=== PATIENT | male | born 1960 | race African-American/Black ===

== ENCOUNTER 2024-06-16 08:59 | Emergency (ER) | payer OTHER ==
--- OUTSIDE RECORDS SUMMARY | 2024-06-16 09:06 | XMS REPORT | Continuity of Care Document ---
Author Name Unknown Address [address] [facility] [address] [place] [address] [facility] Address [address] [facility] [address] [place] [address] Care Team Providers Care Plumbing Instructor Name Role Phone Barb Cooper MD Primary Care Physician [phone] Omayra Medina Attending Clinician Unavail able Barb Cooper Attending Clinician Unavailable Genny Taylor Attending Clinician Unavailable Marilyn Hughes Attending Clinician Unavailable Zabrina Aguilar Attending Clinician Unavailable VIBHA CHANDLER Attending Clinician Unavailable VIBHA CHANDLER Attending Clinician Unavailable Vibha Chandler MD Attending Clinician [phone] Karen Stewart DO Attending Clinician [phone] ERYN WATT Attending Clinician Unavailab Enrike Blount Attending Clinician [phone] Eryn Watt MD Attending Clinician [phone] Enrike BEAUCHAMP Attending Clinician Unavailable Enrike BEAUCHAMP Attending Clinician Unavailable MARCIA CAMACHO Attending Clinician Unavailable Marcia Camacho NP Attending Clinician [phone] WAQAS RIOS Attending Clinician Unavailable Gabriel ENGINEERING [employer]ACULT[employer] MEMBER, Waqas Attending Clinician + SAUL CHAMBERS Attending Clinician Unavailable Saul Chambers MD Attending Clinician + BRETT THORPE Attending Clinician Unavailable BRETT THORPE Attending Clinician Unavailable DAMIEN MCLAUGHLIN Attending Clinician Unavailable Damien Mclaughlin MD Attending Clinician + LILIA ROWLAND Attending Clinician Unavailab carolyn Rowland ENG[employer] MEMBER, Lilia Morris Attending Clinician [phone] VENU RIDER Attending Clinician Unavailable Venu Rider MD Attending Clinician + KAREN STEWART Attending Clinician Unavailab Karen Marquez DO Attending Clinician + DIOMEDES RUSSO Attending Clinician Unavailable Diomedes Malin Attending Clinician + Doctor Unassigned, Holliday Attending Clinician U navailDAMON Coffey Attending Clinician Unavailable Denis SCOTTPDamon Attending Clinician + JOY SANTOS Attending Clinician Unavailable Joy Aaron Attending Clinician [phone] Greg Chawla DO Attending Clinician + GREG CHAWLA Attending Clinician Unavailable Brendan Cochran Attending Clinician +1- BRENDAN MCQUEEN Attending Clinician Unavaila ble Newton SCOTTPSamantha Attending Clinician + Donna ENGINEERING [employer]ACULT[employer] MEMBER, Amarilys Attending Clinician + WAQAS RIOS Admitting Clinician Unavailable SAUL CHAMBERS Admitting Clinician Unavailable VENU RIDER Admitting Clinician Unavailable KAREN STWEART Admitting Clinician Unavailab DAMIEN Solis Admitting Clinician Unavailable VIBHA CHANDLER Admitting Clinician Unavailable DAMON VASQUEZ Admitting Clinician Unavailable BRENDAN MCQUEEN Admitting Clinician Unavaila ble Payers Payer Name Policy Type Policy Number Effective Date Expirati on Date Source [facility] [id number] 2024 00:00:00 [facility] [id number] 2017 00:00:[address] [facility] [id number] 2022 00:00:00 [facility] [id number] 2019 00:00:00 [place] [facility] [id number] 2011 00:00:00 [facility] MEDICAID [facility] [id number] 2011 00:00:00 [facility] MEDICAID [facility] [id number] 2011 00:00:00 [facility] MEDICAID [facility] [id number] 2011 00:00:00 [facility] Problems Condition Name Condition Details Condition Category Status Onset Date Resolution Date Last Treatment Date Treating Clinician Comments Source No known active problems No known active problems Disease [facility] Decreased hearing Decreased hearing Problem [facility] Tobacco user Smokes Problem [facility] [id number] CARMEN (generaliz ed anxiety disorder) Problem [facility] [id number] Other tobacco product nicotine dependence , uncomplica mariya Problem [facility] Foot callus Foot callus Problem [facility] Sexual dysfunctio n Sexual dysfunctio n, unspecifie d Problem [facility] Epidermal cyst Epidermal cyst Problem [facility] Onychomyco sis Onychomyco sis Problem [facility] FH: Diabetes mellitus Family history of diabetes mellitus Problem [facility] [id number] Neck pain Problem [facility] Plantar fasciitis Plantar fasciitis Problem [facility] [id number] Shortness of breath Problem [facility] Gastroesop hageal reflux disease GERD without esophagiti s Problem [facility] [id number] Pain in right leg Problem [facility] [id number] Chronic fatigue Problem [facility] Nicotine dependence Nicotine dependence Problem [facility] [id number] Tinea pedis of right foot Problem [facility] [id number] Lower abdominal pain Problem [facility] [id number] Cold intoleranc e Problem [facility] [id number] Allergic rhinitis due to animal dander Problem [facility] [id number] Snoring Problem [facility] [id number] Allergic rhinitis, unspecifie d seasonalit y, unspecifie d trigger Problem [facility] [id number] Vitamin D deficiency Problem [facility] [id number] Constipati on, unspecifie d constipati on type Problem [facility] [id number] Prediabete s Problem [facility] [id number] Inguinal hernia, right Problem [facility] [id number] Peripheral polyneurop athy Problem [facility] [id number] Pain of left leg Problem [facility] [id number] Hyperlipid emia, unspecifie d hyperlipid emia type Problem [facility] [id number] Motion sickness, initial encounter Problem [facility] [id number] Nonintract able headache, unspecifie d chronicity pattern, unspecifie d headache type Problem [facility] [id number] Depression screening Problem [facility] [id number] Left testicular pain Problem [facility] Peripheral neuropathy Peripheral neuropathy Problem [facility] [id number] Acute lower urinary tract infection Problem [facility] [id number] Muscle cramps Problem [facility] [id number] Polyneurop athy associated with underlying disease Problem [facility] History of tobacco use History of cigar smoking Problem [facility] Pain co-occurre nt and due to varicose veins of bilateral legs Varicose veins of bilateral lower extremitie s with pain Problem [facility] [id number] Other chronic pain Problem [facility] [id number] Neuropathy Problem Com [facility] Allergies, Adverse Reactions, Alerts Allergy Name Allergy Type Status Severity Reaction(s) Onset Date Inactive Date Treating Clinician Comments Source Milk Propensi ty to adverse reaction s Active Swelling 08-07 00:00: 00 [facility] MILK DRUG INGREDI Active Swelling 08-07 00:00: 00 [facility] Iodine And Iodide Containi ng Products Propensi ty to adverse reaction s Active Anaphylaxis 08-08 00:00: 00 [facility] Pepper (Genus Capsicum ) Propensi ty to adverse reaction s Active Itching 08-08 00:00: 00 [facility] Seafood/ Fish Propensi ty to adverse reaction s Active Swelling 08-08 00:00: 00 [facility] Iodine And Iodide Containi ng Products Propensi ty to adverse reaction s Active Anaphylaxis 08-08 00:00: 00 [facility] PEPPER (GENUS CAPSICUM ) DRUG INGREDI Active ITCHING 08-08 00:00: 00 [facility] SEAFOOD/ FISH Food Active Swelling 08-08 00:00: 00 [facility] IODINE AND IODIDE CONTAINI NG PRODUCTS Drug Class Active High Anaphylaxis 08-08 00:00: 00 [facility] sulfamet hoxazole / trimetho prim sulfamet hoxazole / trimetho prim Active itching [facility] Social History Social Habit Start Date Stop Date Quantity Comments [facility] of [facility] Use Current Smoker [facility] Sex Assigned At [facility] Exposure to SARS-CoV-2 (event) 2022-07-14 00:00:00 2022-07-24 22:16:00 Not sure [facility] Smoking Status Start Date Stop Date Source Current Smoker 2024-06-08 00:00:00 [facility] Never Smoker [facility] Tobacco smoking consumption unknown [facility] Medications Ordered Medication Name Filled Medication Name Start Date Stop Date Current Medication? Ordering Clinician Indication Dosage Frequency Signature (SIG) Comments Components Source doxycycline hyclate (Vibramycin ) capsule 100 mg 2023-07 06:30: 00 06-14 06:50 :00 No 100mg 100 mg, Oral, ONCE, 1 dose, On 06/14/24 at 0030, NOÉ, Reason for Anti-Infec tive: Documented Infection, Documented Infection Site: Urine, Duration of Therapy: Once (ED) [facility] cefTRIAXone (ROCEPHIN) injection 500 mg 2023-07 06:30: 00 06-14 06:50 :00 No 500mg 500 mg, Intramuscu lar, ONCE, 1 dose, On 06/14/24 at 0030, STAT, Reason for Anti-Infec tive: Documented Infection, Documented Infection Site: Urine, Duration of Therapy: Once (ED) [facility] doxycycline hyclate 100 mg capsule 2023-07 00:00: 00 Yes [id number] 100mg Take 1 capsule by mouth in the morning and 1 capsule in the evening. [facility] phenazopyri dine 200 mg tablet 2023-07 00:00: 00 Yes [id number] 200mg Take 1 tablet by mouth in the morning and 1 tablet at noon and 1 tablet in the evening. [facility] Vitamin D-3 5000 UNIT Vitamin D-3 5000 UNIT 2023-07 00:00: 00 No 1{table t} QD Vitamin D-3 5000 UNIT Escitalopra m Oxalate 10 MG Escitalopra m Oxalate 10 MG 2023-07 00:00: 00 No 1{table t} QD Escitalopr am Oxalate 10 MG guaiFENesin ER 600 MG guaiFENesin ER 600 MG 2023-07 00:00: 00 No 1{table t_as_ne eded} BID guaiFENesi n ER 600 MG ketorolac (TORADOL) injection 30 mg 2023-07 15:45: 00 06-02 15:08 :00 No 30mg 30 mg, Slow IV Push, ONCE, 1 dose, On Tu06/02/24 at 0945, Routine [facility] benzonatate 200 mg capsule 03-23 00:00: 00 Yes [id number] 200mg Take 1 capsule by mouth 3 (three) times daily as needed for Cough for up to 20 doses. [facility] ondansetron 4 mg disintegrat ing tablet 03-23 00:00: 00 Yes [id number] 4mg Take 1 tablet by mouth every 8 (eight) hours as needed for Nausea and Vomiting (N/V). [facility] baclofen 5 mg tablet 12-03 00:00: 00 12-18 04:59 :00 No [id number] 5mg Take 1 tablet by mouth at bedtime for 14 days. [facility] ondansetron 4 mg disintegrat ing tablet 09-14 00:00: 00 12-03 00:00 :00 No [id number] 4mg Take 1 tablet by mouth every 8 (eight) hours as needed for Nausea and Vomiting (N/V). [facility] dicyclomine 20 mg tablet 09-14 00:00: 00 12-03 00:00 :00 No [id number] 20mg Take 1 tablet by mouth 3 (three) times daily as needed for Abdominal pain. [facility] famotidine (PEPCID) 40 mg tablet 09-14 00:00: 00 09-29 04:59 :00 No [id number] 40mg Take 1 tablet by mouth in the morning for 15 days. [facility] dexAMETHaso ne (DECADRON) tablet 6 mg 08-22 07:15: 00 08-22 06:06 :00 No 6mg 6 mg, Oral, ONCE, 1 dose, On [place] 08/22/23 at 0115, Routine [facility] benzonatate (TESSALON PERLES) capsule 200 mg 08-22 07:00: 00 08-22 06:06 :00 No 200mg 200 mg, Oral, ONCE NOW, 1 dose, On [place] 08/22/23 at 0100, NOÉ [facility] benzonatate 200 mg capsule 08-22 00:00: 00 12-03 00:00 :00 No [id number] 200mg Take 1 capsule by mouth 3 (three) times daily as needed for Cough. [facility] loratadine 10 mg tablet 08-22 00:00: 00 12-03 00:00 :00 No [id number] 10mg Take 1 tablet by mouth in the morning. [facility] cefdinir 300 mg capsule 08-22 00:00: 00 09-02 05:59 :00 No [id number] 300mg Take 1 capsule by mouth in the morning and 1 capsule in the evening. Do all this for 10 days. [facility] dexAMETHaso ne 4 mg tablet 08-22 00:00: 00 08-28 05:59 :00 No [id number] 4mg Take 1 tablet by mouth in the morning and 1 tablet in the evening. Do all this for 5 days. [facility] ibuprofen (IBU) tablet 600 mg 2022-07 00:45: 00 06-24 00:48 :00 No 600mg 600 mg, Oral, ONCE, 1 dose, On 06/23/23 at 1845, NOÉ [facility] methylPREDN ISolone 4 mg tablets 04-13 00:00: 00 Yes [id number] Take by mouth SEE-INSTRU CTIONS. follow package directions [facility] azithromyci n (ZITHROMAX Z-BEAR) 250 mg tablet 04-13 00:00: 00 12-03 00:00 :00 No [id number] 250mg Take 1 tablet by mouth SEE-INSTRU CTIONS. Take 500 mg day 1, then 250 mg days 2 to 5. [facility] loratadine 10 mg tablet 04-13 00:00: 00 12-03 00:00 :00 No [id number] 10mg Take 1 tablet by mouth at bedtime as needed for Allergies. [facility] benzonatate 100 mg capsule 04-13 00:00: 00 12-03 00:00 :00 No [id number] 100mg Take 1 capsule by mouth 3 (three) times daily as needed for Cough. [facility] amoxicillin 500 mg capsule 6-25 00:00: 00 01-24 04:59 :00 No [id number] 500mg Take 1 capsule by mouth in the morning and 1 capsule in the evening. Do all this for 10 days. [facility] predniSONE (DELTASONE) tablet 30 mg 07-25 06:12: 07-25 06:21 :00 No 30mg 30 mg, Oral, ONCE, 1 dose, On Sat07/25/22 at 0015, NOÉ [facility] doxycycline hyclate (Vibramycin ) capsule 100 mg 07-25 06:12: 00 07-25 06:21 :00 No 100mg 100 mg, Oral, ONCE, 1 dose, On Sat07/25/22 at 0015, NOÉ
Re ason for Anti-Infec tive: Documented Infection< br>Documen mariya Infection Site: Respirator y
Durat ion of Therapy: Other (see Comments) [facility] doxycycline hyclate 100 mg capsule 07-25 00:00: 00 12-03 00:00 :00 No [id number] 100mg Take 1 capsule by mouth in the morning and 1 capsule in the evening. [facility] albuterol 90 mcg/actuati on inhaler 07-25 00:00: 00 12-03 00:00 :00 No [id number] 2{puff} Inhale 2 Puffs every 4 (four) hours as needed for Wheezing, Shortness of Breath or Chest tightness. [facility] benzonatate 100 mg capsule 07-25 00:00: 00 04-13 00:00 :00 No [id number] 100mg Take 1 capsule by mouth 3 (three) times daily as needed for Cough. [facility] predniSONE 10 mg tablet 07-25 00:00: 00 07-29 05:59 :00 No [id number] 30mg Take 3 tablets by mouth in the morning for 3 days. [facility] acetaminoph en (TYLENOL) tablet 650 mg 03-05 22:45: 00 03-05 22:43 :00 No 650mg 650 mg, Oral, ONCE, 1 dose, On Sat03/05/22 at 1745, NOÉ [facility] ibuprofen (IBU) tablet 600 mg 01-16 18:45: 00 01-16 18:48 :00 No 600mg 600 mg, Oral, ONCE, 1 dose, On Sat01/16/22 at 1345, NOÉ [facility] montelukast 10 mg tablet 01-11 00:00: 00 12-03 00:00 :00 No [id number] 10mg Take 1 tablet by mouth every 24 (twenty-fo ur) hours as needed (symptoms) . [facility] methylPREDN ISolone 4 mg tablets 01-11 00:00: 00 04-13 00:00 :00 No [id number] Take by mouth SEE-INSTRU CTIONS. follow package directions [facility] benzonatate 100 mg capsule 01-11 00:00: 00 04-13 00:00 :00 No [id number] 100mg Take 1 capsule by mouth 3 (three) times daily as needed for Cough. [facility] doxycycline hyclate 100 mg capsule 01-11 00:00: 00 01-22 04:59 :00 No [id number] 100mg Take 1 capsule by mouth 2 (two) times daily for 10 days. [facility] ondansetron (ZOFRAN (PF)) injection 4 mg 11-03 03:00: 00 11-03 02:03 :00 No 4mg 4 mg, Slow IV Push, ONCE, 1 dose, On Sat11/02/21 at 2200, NOÉ [facility] ketorolac (TORADOL) injection 15 mg 11-03 03:00: 00 11-03 02:04 :00 No 15mg 15 mg, Slow IV Push, ONCE, 1 dose, On 11/02/22 at 2200, NOÉ [facility] lactulose 10 gram/15 mL oral solution 11-02 00:00: 00 12-03 00:00 :00 No [id number] 30mL Take 30 mL by mouth 3 (three) times daily as needed for Constipati on or For bowel movement. [facility] cefTRIAXone (ROCEPHIN) injection 500 mg 10-23 16:45: 00 10-23 16:16 :00 No 500mg 500 mg, Intramuscu lar, ONCE, 1 dose, On 10/23/21 at 1145, NOÉ
Re ason for Anti-Infec tive: Documented Infection< br>Documen mariya Infection Site: Pelvic
Duration of Therapy: Other (see Comments) [facility] doxycycline hyclate 100 mg capsule 10-23 00:00: 00 10-31 04:59 :00 No [id number] 100mg Take 1 capsule by mouth 2 (two) times daily for 7 days. [facility] cefpodoxime 100 mg tablet 10-16 00:00: 00 10-24 04:59 :00 No [id number] 100mg Take 1 tablet by mouth 2 (two) times daily for 7 days. [facility] predniSONE (DELTASONE) tablet 40 mg 10-10 04:00: 00 10-10 02:51 :00 No 40mg 40 mg, Oral, ONCE, 1 dose, On Sat10/09/21 at 2300, NOÉ [facility] dextrometho rphan-guaif enesin 10-100 mg/5 mL solution 10-09 00:00: 00 12-03 00:00 :00 No [id number] 10mL Take 10 mL by mouth every 6 (six) hours as needed for Cough. [facility] fluticasone propionate 50 mcg/actuati on nasal spray 10-09 00:00: 00 12-03 00:00 :00 No [id number] 2{spray } Use 2 Sprays in each nostril daily. [facility] albuterol 90 mcg/actuati on inhaler 10-09 00:00: 00 12-03 00:00 :00 No [id number] 2{puff} Inhale 2 Puffs every 4 (four) hours as needed for Wheezing or Shortness of Breath. [facility] predniSONE 20 mg tablet 10-09 00:00: 00 12-03 00:00 :00 No [id number] 60mg Take 3 tablets by mouth every morning. [facility] benzonatate 100 mg capsule 10-09 00:00: 00 04-13 00:00 :00 No [id number] 100mg Take 1 capsule by mouth 3 (three) times daily as needed for Cough. [facility] predniSONE (DELTASONE) tablet 40 mg 2020-07 05:45: 00 07-07 04:42 :00 No 40mg 40 mg, Oral, ONCE, 1 dose, On [facility] 07/06/21 at 2345, NOÉ [facility] predniSONE 20 mg tablet 2020-0716 00:00: 00 07-11 05:59 :00 No [id number] 20mg Take 1 tablet by mouth 2 (two) times daily for 4 days. [facility] maalox:diph enhydrAMINE :lidocaine 2 % viscous 1:1:1 (FIRST-MOUT HWASH BLM) oral suspension 15 mL 2020-07 02:45: 00 06-13 01:42 :00 No 15mL 15 mL, Oral, ONCE, 1 dose, On Sat06/12/21 at 2045, NOÉ [facility] dicyclomine (BENTYL) tablet 20 mg 2020-07 02:45: 00 06-13 01:45 :00 No 20mg 20 mg, Oral, ONCE, 1 dose, On Sat06/12/21 at 2045, NOÉ [facility] NaCl 0.9% (NS) bolus infusion 1,000 mL 2020-07 02:30: 00 06-13 03:00 :00 No 1000mL at 999 mL/hr, 1,000 mL, IV Infusion, ONCE, 1 dose, On 06/12/21 at 2030, NOÉ [facility] sucralfate 1 gram tablet 2020-07 00:00: 00 12-03 00:00 :00 No [id number] 1g Take 1 tablet by mouth before meals and at bedtime. [facility] dicyclomine 20 mg tablet 2020-07 00:00: 00 12-03 00:00 :00 No [id number] 20mg Take 1 tablet by mouth 4 (four) times daily. [facility] ondansetron 4 mg disintegrat ing tablet 2020-07 00:00: 00 12-03 00:00 :00 No [id number] 4mg Take 1 tablet by mouth every 4 (four) hours as needed for Nausea and Vomiting (N/V). [facility] montelukast (SINGULAIR) 10 mg tablet 03-09 14:25: 35 03-09 00:00 :00 No 10mg Take 10 mg by mouth. [facility] benzonatate 200 mg capsule 03-09 00:00: 00 04-13 00:00 :00 No [id number] 200mg Take 1 capsule by mouth 3 (three) times daily as needed for Cough. [facility] methylPREDN ISolone (MEDROL, BEAR,) 4 mg tablets 03-09 00:00: 00 04-13 00:00 :00 No [id number] Take by mouth SEE-INSTRU CTIONS. follow package directions [facility] dexamethaso ne (DECADRON PHOSPHATE) injection 10 mg 12-09 16:45: 00 12-09 16:18 :00 No 10mg 10 mg, Oral, ONCE, 1 dose, Sat12/09/20 at 1145, Routine [facility] benzonatate (TESSALON PERLES) capsule 100 mg 12-09 16:45: 00 12-09 16:13 :00 No 100mg 100 mg, Oral, ONCE, 1 dose, 12/09/20 at 1145, Routine [facility] albuterol (VENTOLIN) inhaler 2 Puff 12-09 16:45: 00 12-09 15:54 :00 No 2{puff} 2 Puff, Inhalation , ONCE, 1 dose, 12/09/20 at 1145, NOÉ
Is this order for a patient with suspected or confirmed COVID-19 infection? Yes [facility] albuterol 90 mcg/actuati on inhaler 12-09 00:00: 00 03-09 00:00 :00 No [id number] 2{puff} Inhale 2 Puffs every 4 (four) hours as needed for Wheezing or Shortness of Breath. [facility] benzonatate 100 mg capsule 12-09 00:00: 00 03-09 00:00 :00 No [id number] 100mg Take 1 capsule by mouth 3 (three) times daily as needed for Cough. [facility] ketorolac (TORADOL) injection 30 mg 2019-07 17:00: 00 07-16 16:06 :00 No 30mg 30 mg, Slow IV Push, ONCE, 1 dose, 07/16/20 at 1100, Routine
outreach team member approving Restricted medication : DAMIEN MCLAUGHLIN [facility] ibuprofen 800 mg tablet 2019-07 00:00: 00 03-09 00:00 :00 No [id number] 800mg Take 1 tablet by mouth every 8 (eight) hours as needed for Pain (scale 4-6). [facility] methylPREDN ISolone 4 mg tablets 2019-07 00:00: 00 03-09 00:00 :00 No [id number] Take by mouth SEE-INSTRU CTIONS. follow package directions [facility] albuterol 90 mcg/actuati on inhaler 2019-07 00:00: 00 03-09 00:00 :00 No [id number] 2{puff} Inhale 2 Puffs every 4 (four) hours as needed for Wheezing or Shortness of Breath. [facility] benzonatate 100 mg capsule 2019-07 2 00:00: 03-09 00:00 :00 No [id number] 100mg Take 1 capsule by mouth 3 (three) times daily as needed for Cough. [facility] ondansetron 4 mg disintegrat ing tablet 2019-07 00:00: 00 03-09 00:00 :00 No [id number] 4mg Take 1 tablet by mouth every 4 (four) hours as needed for Nausea and Vomiting (N/V). [facility] montelukast (SINGULAIR) 10 mg tablet 2019-07 00:00: 00 03-09 00:00 :00 No [id number] 10mg Take 1 tablet by mouth daily. [facility] loratadine 10 mg tablet 01-27 00:00: 00 03-09 00:00 :00 No [id number] 10mg Take 1 tablet by mouth daily. [facility] montelukast 10 mg tablet 01-27 00:00: 00 03-09 00:00 :00 No [id number] 10mg Take 1 tablet by mouth daily. [facility] benzonatate 100 mg capsule 01-27 00:00: 00 03-09 00:00 :00 No [id number] 100mg Take 1 capsule by mouth 3 (three) times daily as needed for Cough. [facility] methylPREDN ISolone (MEDROL, BEAR,) 4 mg tablets 01-27 00:00: 00 07-11 00:00 :00 No [id number] Take by mouth SEE-INSTRU CTIONS. follow package directions [facility] ibuprofen 800 mg tablet 08-21 00:00: 00 03-09 00:00 :00 No [id number] 800mg Take 1 tablet by mouth every 8 (eight) hours as needed for Temp > 38.5 C (PAIN). [facility] benzonatate 200 mg capsule 08-21 00:00: 00 03-09 00:00 :00 No [id number] 200mg Take 1 capsule by mouth 3 (three) times daily as needed for Cough. [facility] benzonatate 100 mg capsule 2018-07 00:00: 00 03-09 00:00 :00 No [id number] 100mg Take 1 capsule by mouth 3 (three) times daily as needed for Cough. [facility] levoFLOXaci n (LEVAQUIN) tablet 500 mg 02-17 03:15: 02-17 02:10 :00 No 500mg 500 mg, Oral, ONCE, 1 dose, Sat02/16/19 at 2215, NOÉ
Re ason for Anti-Infec tive: Documented Infection< br>Documen mariya Infection Site: Pelvic
Duration of Therapy: 10 days [facility] naproxen (NAPROSYN) tablet 500 mg 02-17 03:15: 02-17 02:10 :00 No 500mg 500 mg, Oral, ONCE, 1 dose, Sat02/16/19 at 2215, Routine [facility] naproxen (NAPROSYN) 500 mg tablet 02-16 00:00: 00 12-03 00:00 :00 No [id number] 500mg Take 1 tablet by mouth 2 (two) times daily with meals. [facility] levoFLOXaci n (LEVAQUIN) 500 mg tablet 02-16 00:00: 00 02-27 04:59 :00 No [id number] 500mg Take 1 tablet by mouth every 24 (twenty-fo ur) hours for 10 days. [facility] benzonatate 200 mg capsule 02-11 00:00: 00 Yes [id number] 200mg Take 1 capsule by mouth 3 (three) times daily as needed for Cough. [facility] traMADol (ULTRAM) 50 mg tablet 02-11 00:00: 00 12-03 00:00 :00 No [id number] 50mg Take 1 tablet by mouth every 6 (six) hours as needed for Pain (scale 7-10). [facility] sod chlor-bicar b-squeez bottle (NEILMED SINUS RINSE COMPLETE) [facility] 2017-07 00:00: 00 Yes 1{bottl e} Use 1 Bottle in each nostril 2 (two) times daily. Use in hot shower 1 hour before bedtime [facility] promethazin e-codeine 6.25-10 mg/5 mL syrup 2017-07 00:00: 00 12-03 00:00 :00 No 5mL Take 5 mL by mouth 4 (four) times daily as needed for Cough. [facility] sod chlor-bicar b-squeez bottle (NEILMED SINUS RINSE COMPLETE) [facility] 2017-07 00:00: 00 12-03 00:00 :00 No 1{bottl e} Use 1 Bottle in each nostril 2 (two) times daily. Use in hot shower 1 hour before bedtime [facility] ETODOLAC ORAL 01-16 02:31: 37 Yes 500mg Take 500 mg by mouth 2 (two) times daily. [facility] montelukast (SINGULAIR) 10 mg tablet 01-16 02:31: 37 Yes 10mg Take 10 mg by mouth. [facility] ETODOLAC ORAL 01-15 21:31: 37 12-03 00:00 :00 No 500mg Take 500 mg by mouth 2 (two) times daily. [facility] fluticasone (FLONASE ALLERGY RELIEF) 50 mcg/actuati on nasal spray 01-15 00:00: 00 12-03 00:00 :00 No 1{spray } Use 1 [place] in each nostril daily. [facility] loratadine 10 mg tablet 01-15 00:00: 00 03-09 00:00 :00 No 10mg Take 1 tablet by mouth daily. [facility] Omeprazole 20 mg Omeprazole 20 mg 20 00:00: 00 No 1{capsu le} QD Omeprazole 20 mg ondansetron (ZOFRAN ODT) 4 mg disintegrat ing tablet 2016-07 2-20 00:00: 00 03-09 00:00 :00 No 4mg Take 1 tablet by mouth every 8 (eight) hours as needed for Nausea and Vomiting (N/V). [facility] ibuprofen 600 mg tablet 2016-07 2-20 00:00: 00 03-09 00:00 :00 No 600mg Take 1 tablet by mouth every 6 (six) hours as needed for Pain (scale 4-6). [facility] miconazole 2 % cream -14 00:00: 00 Yes Apply to area(s) 2 (two) times daily. [facility] nystatin-tr iamcinolone (MYCOLOG) ointment -18 00:00: 00 12-03 00:00 :00 No Apply to area(s) 2 (two) times daily. [facility] Vitamin B Complex - Vitamin B Complex - No Vitamin B Complex - Immunizations Ordered Immunization Name Filled Immunization Name Date Status Comments Source Afluria (IIV4) - 3 years and older - SDS - 0.5mL Afluria (IIV4) - 3 years and older - SDS - 0.5mL 2020-08-09 15:55:00 Completed [facility] Afluria single dose Afluria single dose 15:55:00 Completed [facility] Afluria single dose Afluria single dose 15:55:00 Completed [facility] Afluria single dose Afluria single dose 15:55:00 Completed [facility] Afluria single dose Afluria single dose 15:55:00 Completed [facility] Afluria single dose Afluria single dose 15:55:00 Completed [facility] Afluria single dose Afluria single dose 15:55:00 Completed [facility] Afluria (IIV4) - 3 years and older - SDS - 0.5mL Afluria (IIV4) - 3 years and older - SDS - 0.5mL Unknown Completed [facility] Vital Signs Vital Name Observation Time Observation Value Comments S isaiah Systolic blood pressure 2024-06-14 06:55:00 128 mm[Hg] [facility] Diastolic blood pressure 2024-06-14 06:55:00 80 mm[Hg] [facility] Heart rate 2024-06-14 06:55:00 66 /min [facility] Body temperature 2024-06-14 06:55:00 36.89 Madeleine [facility] Respiratory rate 2024-06-14 06:55:00 17 /min [facility] Oxygen saturation in Arterial blood by Pulse oximetry 2024-06-14 06:55:00 100 /min [facility] Body height 2024-06-14 04:12:00 180.3 cm [facility] Body weight 2024-06-14 04:12:00 74.481 kg [facility] BMI 2024-06-14 04:12:00 22.90 kg/m2 [facility] height 2024-06-08 15:15:00 72 [in_i] Commo n [facility] weight 2024-06-08 15:15:00 166.2 [lb_av] Co mmon [facility] temperature 2024-06-08 15:15:00 97.4 [degF] Com mon [facility] bmi 2024-06-08 15:15:00 22.54 kg/m2 Comm on [facility] oximetry 2024-06-08 15:15:00 98 % Commo n [facility] respiratory rate 2024-06-08 15:15:00 16 /min [facility] blood pressure systolic 2024-06-08 15:15:00 116 mm[Hg] [facility] blood pressure diastolic 2024-06-08 15:15:00 58 mm[Hg] [facility] Systolic blood pressure 2024-06-02 15:13:00 146 mm[Hg] [facility] Diastolic blood pressure 2024-06-02 15:13:00 87 mm[Hg] [facility] Heart rate 2024-06-02 15:13:00 54 /min [facility] Respiratory rate 2024-06-02 15:13:00 15 /min [facility] Oxygen saturation in Arterial blood by Pulse oximetry 2024-06-02 15:13:00 100 /min [facility] Body temperature 2024-06-02 12:48:00 36.5 Madeleine [facility] Body height 2024-06-02 12:48:00 182.9 cm [facility] Body weight 2024-06-02 12:48:00 86.183 kg [facility] BMI 2024-06-02 12:48:00 25.77 kg/m2 [facility] Systolic blood pressure 2024-04-08 00:27:00 138 mm[Hg] [facility] Diastolic blood pressure 2024-04-08 00:27:00 76 mm[Hg] [facility] Heart rate 2024-04-08 00:27:00 73 /min [facility] Body temperature 2024-04-08 00:27:00 36.5 Madeleine [facility] Respiratory rate 2024-04-08 00:27:00 18 /min [facility] Body height 2024-04-08 00:27:00 182.9 cm [facility] Body weight 2024-04-08 00:27:00 86.183 kg [facility] BMI 2024-04-08 00:27:00 25.77 kg/m2 [facility] Oxygen saturation in Arterial blood by Pulse oximetry 2024-04-08 00:27:00 100 /min [facility] Systolic blood pressure 2024-03-23 16:40:00 150 mm[Hg] [facility] Diastolic blood pressure 2024-03-23 16:40:00 79 mm[Hg] [facility] Heart rate 2024-03-23 16:40:00 68 /min [facility] Body temperature 2024-03-23 16:40:00 36.5 Madeleine [facility] Respiratory rate 2024-03-23 16:40:00 18 /min [facility] Body height 2024-03-23 16:40:00 180.3 cm [facility] Body weight 2024-03-23 16:40:00 77.111 kg [facility] BMI 2024-03-23 16:40:00 23.71 kg/m2 [facility] Oxygen saturation in Arterial blood by Pulse oximetry 2024-03-23 16:40:00 98 /min [facility] Systolic blood pressure 2023-12-05 03:20:00 144 mm[Hg] [facility] Diastolic blood pressure 2023-12-05 03:20:00 81 mm[Hg] [facility] Heart rate 2023-12-05 03:20:00 61 /min [facility] Body temperature 2023-12-05 03:20:00 36.56 [facility] Respiratory rate 2023-12-05 03:20:00 15 /min [facility] Oxygen saturation in Arterial blood by Pulse oximetry 2023-12-05 03:20:00 99 /min [facility] Body height 2023-12-05 00:04:00 200.7 cm [facility] Body weight 2023-12-05 00:04:00 76.204 kg [facility] BMI 2023-12-05 00:04:00 18.93 kg/m2 [facility] Systolic blood pressure 2023-09-15 01:36:00 140 mm[Hg] [facility] Diastolic blood pressure 2023-09-15 01:36:00 72 mm[Hg] [facility] Heart rate 2023-09-15 01:36:00 55 [facility] Body temperature 2023-09-15 01:36:00 36.56 Madeleine [facility] Respiratory rate 2023-09-15 01:36:00 16 /min [facility] Oxygen saturation in Arterial blood by Pulse oximetry 2023-09-15 01:36:00 100 /min [facility] Body height 2023-09-14 22:05:00 180.3 cm [facility] Body weight 2023-09-14 22:05:00 79.379 kg [facility] BMI 2023-09-14 22:05:00 24.41 kg/m2 [facility] Systolic blood pressure 2023-08-22 06:11:00 116 mm[Hg] [facility] Diastolic blood pressure 2023-08-22 06:11:00 82 mm[Hg] [facility] Heart rate 2023-08-22 06:11:00 57 /min [facility] Body temperature 2023-08-22 06:11:00 36.56 Madeleine [facility] Respiratory rate 2023-08-22 06:11:00 14 /min [facility] Oxygen saturation in Arterial blood by Pulse oximetry 2023-08-22 06:11:00 100 /min [facility] Body height 2023-08-22 04:07:00 180.3 cm [facility] Body weight 2023-08-22 04:07:00 81.647 kg [facility] BMI 2023-08-22 04:07:00 25.10 kg/m2 [facility] height 2023-07-03 14:20:00 72 [in_i] Commo n [facility] weight 2023-07-03 14:20:00 170.4 [lb_av] Co mmon [facility] temperature 2023-07-03 14:20:00 97.9 [degF] Com mon [facility] bmi 2023-07-03 14:20:00 23.11 kg/m2 Comm on [facility] oximetry 2023-07-03 14:20:00 100 % Commo n [facility] respiratory rate 2023-07-03 14:20:00 16 /min Common [facility] blood pressure systolic 2023-07-03 14:20:00 126 mm[Hg] Common [facility] blood pressure diastolic 2023-07-03 14:20:00 71 mm[Hg] Common [facility] Systolic blood pressure 2023-06-24 00:24:00 128 mm[Hg] [facility] Diastolic blood pressure 2023-06-24 00:24:00 72 mm[Hg] [facility] Heart rate 2023-06-24 00:24:00 62 /min [facility] Body temperature 2023-06-24 00:24:00 36.61 Madeleine [facility] Respiratory rate 2023-06-24 00:24:00 20 /min [facility] Body height 2023-06-24 00:24:00 172.7 cm [facility] Body weight 2023-06-24 00:24:00 81.647 kg [facility] BMI 2023-06-24 00:24:00 27.37 kg/m2 [facility] Oxygen saturation in Arterial blood by Pulse oximetry 2023-06-24 00:24:00 100 /min [facility] Systolic blood pressure 2023-04-13 16:13:00 130 mm[Hg] [facility] Diastolic blood pressure 2023-04-13 16:13:00 71 mm[Hg] [facility] Heart rate 2023-04-13 16:13:00 61 /min [facility] Body temperature 2023-04-13 16:13:00 36.72 Madeleine [facility] Respiratory rate 2023-04-13 16:13:00 18 /min [facility] Body height 2023-04-13 16:13:00 182.9 cm [facility] Body weight 2023-04-13 16:13:00 80.74 kg [facility] BMI 2023-04-13 16:13:00 24.14 kg/m2 [facility] Oxygen saturation in Arterial blood by Pulse oximetry 2023-04-13 16:13:00 99 /min [facility] Systolic blood pressure 2023-01-13 18:38:00 156 mm[Hg] [facility] Diastolic blood pressure 2023-01-13 18:38:00 72 mm[Hg] [facility] Heart rate 2023-01-13 18:38:00 66 /min [facility] Body temperature 2023-01-13 18:38:00 36.72 Madeleine [facility] Respiratory rate 2023-01-13 18:38:00 22 /min [facility] Body height 2023-01-13 18:38:00 182.9 cm [facility] Body weight 2023-01-13 18:38:00 80.74 kg [facility] BMI 2023-01-13 18:38:00 24.14 kg/m2 [facility] Oxygen saturation in Arterial blood by Pulse oximetry 2023-01-13 18:38:00 100 /min [facility] Systolic blood pressure 2022-07-25 04:18:00 157 mm[Hg] [facility] Diastolic blood pressure 2022-07-25 04:18:00 71 mm[Hg] [facility] Heart rate 2022-07-25 04:18:00 73 /min [facility] Body temperature 2022-07-25 04:18:00 36.5 Madeleine [facility] Respiratory rate 2022-07-25 04:18:00 18 /min [facility] Body height 2022-07-25 04:18:00 180.3 cm [facility] Body weight 2022-07-25 04:18:00 67.132 kg [facility] BMI 2022-07-25 04:18:00 20.64 kg/m2 [facility] Oxygen saturation in Arterial blood by Pulse oximetry 2022-07-25 04:18:00 100 /min [facility] height 2022-05-18 16:00:00 72 [in_i] Commo n [facility] weight 2022-05-18 16:00:00 173.8 [lb_av] Co mmon [facility] temperature 2022-05-18 16:00:00 97.9 [degF] Com mon [facility] bmi 2022-05-18 16:00:00 23.57 kg/m2 Comm on [facility] oximetry 2022-05-18 16:00:00 98 % Commo n [facility] respiratory rate 2022-05-18 16:00:00 15 /min Common [facility] blood pressure systolic 2022-05-18 16:00:00 126 mm[Hg] [facility] blood pressure diastolic 2022-05-18 16:00:00 59 mm[Hg] [facility] Systolic blood pressure 2022-03-05 21:34:00 119 mm[Hg] [facility] Diastolic blood pressure 2022-03-05 21:34:00 70 mm[Hg] [facility] Heart rate 2022-03-05 21:34:00 94 /min [facility] Body temperature 2022-03-05 21:34:00 37.89 Madeleine [facility] Respiratory rate 2022-03-05 21:34:00 18 /min [facility] Body weight 2022-03-05 21:34:00 68.04 kg [facility] BMI 2022-03-05 21:34:00 17.33 kg/m2 [facility] Oxygen saturation in Arterial blood by Pulse oximetry 2022-03-05 21:34:00 98 /min [facility] height 2022-02-13 16:40:00 72 [in_i] Commo n [facility] weight 2022-02-13 16:40:00 162 [lb_av] Comm on [facility] temperature 2022-02-13 16:40:00 97.2 [degF] Com mon [facility] bmi 2022-02-13 16:40:00 21.97 kg/m2 Comm on [facility] oximetry 2022-02-13 16:40:00 100 % Commo n [facility] respiratory rate 2022-02-13 16:40:00 19 /min [facility] blood pressure systolic 2022-02-13 16:40:00 116 mm[Hg] [facility] blood pressure diastolic 2022-02-13 16:40:00 67 mm[Hg] [facility] Systolic blood pressure 2022-01-23 00:56:00 140 mm[Hg] [facility] Diastolic blood pressure 2022-01-23 00:56:00 70 mm[Hg] [facility] Heart rate 2022-01-23 00:56:00 69 /min [facility] Body temperature 2022-01-23 00:56:00 36.89 Madeleine [facility] Respiratory rate 2022-01-23 00:56:00 16 /min [facility] Oxygen saturation in Arterial blood by Pulse oximetry 2022-01-23 00:56:00 98 /min [facility] Systolic blood pressure 2022-01-16 18:36:00 125 mm[Hg] [facility] Diastolic blood pressure 2022-01-16 18:36:00 59 mm[Hg] [facility] Heart rate 2022-01-16 18:36:00 85 /min [facility] Body temperature 2022-01-16 18:36:00 36.44 Madeleine [facility] Respiratory rate 2022-01-16 18:36:00 20 /min [facility] Body height 2022-01-16 18:36:00 198.1 cm [facility] Body weight 2022-01-16 18:36:00 68.04 kg [facility] BMI 2022-01-16 18:36:00 17.33 kg/m2 [facility] Oxygen saturation in Arterial blood by Pulse oximetry 2022-01-16 18:36:00 99 /min [facility] Diastolic blood pressure 2022-01-11 13:47:00 60 mm[Hg] [facility] Heart rate 2022-01-11 13:47:00 73 /min [facility] Body temperature 2022-01-11 13:47:00 36.39 Madeleine [facility] Respiratory rate 2022-01-11 13:47:00 16 /min [facility] Body height 2022-01-11 13:47:00 182.9 cm [facility] Body weight 2022-01-11 13:47:00 67.132 kg [facility] BMI 2022-01-11 13:47:00 20.07 kg/m2 [facility] Oxygen saturation in Arterial blood by Pulse oximetry 2022-01-11 13:47:00 98 /min [facility] Systolic blood pressure 2022-01-11 13:47:00 125 mm[Hg] [facility] Systolic blood pressure 2021-11-03 03:41:39 125 mm[Hg] [facility] Diastolic blood pressure 2021-11-03 03:41:39 64 mm[Hg] [facility] Heart rate 2021-11-03 03:41:39 60 /min [facility] Respiratory rate 2021-11-03 03:41:39 18 /min [facility] Oxygen saturation in Arterial blood by Pulse oximetry 2021-11-03 03:41:39 99 /min [facility] Body temperature 2021-11-02 23:56:00 37.06 Madeleine [facility] Body height 2021-11-02 23:56:00 188 cm [facility] Body weight 2021-11-02 23:56:00 63.504 kg [facility] BMI 2021-11-02 23:56:00 17.97 kg/m2 [facility] Systolic blood pressure 2021-10-23 15:32:00 115 mm[Hg] [facility] Diastolic blood pressure 2021-10-23 15:32:00 83 mm[Hg] [facility] Heart rate 2021-10-23 15:32:00 82 /min [facility] Body temperature 2021-10-23 15:32:00 36.72 Madeleine [facility] Respiratory rate 2021-10-23 15:32:00 15 /min [facility] Body height 2021-10-23 15:32:00 185.4 cm [facility] Body weight 2021-10-23 15:32:00 63.504 kg [facility] BMI 2021-10-23 15:32:00 18.47 kg/m2 [facility] Oxygen saturation in Arterial blood by Pulse oximetry 2021-10-23 15:32:00 96 /min [facility] Systolic blood pressure 2021-10-16 20:18:00 138 mm[Hg] [facility] Diastolic blood pressure 2021-10-16 20:18:00 68 mm[Hg] [facility] Heart rate 2021-10-16 20:18:00 68 /min [facility] Respiratory rate 2021-10-16 20:18:00 18 /min [facility] Oxygen saturation in Arterial blood by Pulse oximetry 2021-10-16 20:18:00 100 /min [facility] Body temperature 2021-10-16 17:53:00 36.44 Madeleine [facility] Body weight 2021-10-16 17:53:00 63.504 kg [facility] BMI 2021-10-16 17:53:00 19.53 kg/m2 [facility] Systolic blood pressure 2021-10-10 02:45:38 122 mm[Hg] [facility] Diastolic blood pressure 2021-10-10 02:45:38 73 mm[Hg] [facility] Heart rate 2021-10-10 02:45:38 98 /min [facility] Body temperature 2021-10-10 02:45:38 36.28 Madeleine [facility] Respiratory rate 2021-10-10 02:45:38 18 /min [facility] Oxygen saturation in Arterial blood by Pulse oximetry 2021-10-10 02:45:38 100 /min [facility] Body height 2021-10-10 00:46:00 180.3 cm [facility] Body weight 2021-10-10 00:46:00 58.968 kg [facility] BMI 2021-10-10 00:46:00 18.13 kg/m2 [facility] height 2021-08-29 16:20:00 74 [in_i] Commo n [facility] weight 2021-08-29 16:20:00 162.6 [lb_av] Co mmon [facility] temperature 2021-08-29 16:20:00 97.9 [degF] Com mon [facility] bmi 2021-08-29 16:20:00 20.87 kg/m2 Comm on [facility] oximetry 2021-08-29 16:20:00 98 % Commo n [facility] respiratory rate 2021-08-29 16:20:00 15 /min Common [facility] blood pressure systolic 2021-08-29 16:20:00 122 mm[Hg] Common [facility] blood pressure diastolic 2021-08-29 16:20:00 62 mm[Hg] [facility] Systolic blood pressure 2021-08-02 23:23:00 124 mm[Hg] [facility] Diastolic blood pressure 2021-08-02 23:23:00 72 mm[Hg] [facility] Heart rate 2021-08-02 23:23:00 76 /min [facility] Body temperature 2021-08-02 23:23:00 37.28 Madeleine [facility] Respiratory rate 2021-08-02 23:23:00 18 /min [facility] Body weight 2021-08-02 23:23:00 73.936 kg [facility] BMI 2021-08-02 23:23:00 20.37 kg/m2 [facility] Oxygen saturation in Arterial blood by Pulse oximetry 2021-08-02 23:23:00 99 /min [facility] Systolic blood pressure 2021-07-07 03:35:00 114 mm[Hg] [facility] Diastolic blood pressure 2021-07-07 03:35:00 64 mm[Hg] [facility] Heart rate 2021-07-07 03:35:00 92 /min [facility] Body temperature 2021-07-07 03:35:00 37.11 Madeleine [facility] Respiratory rate 2021-07-07 03:35:00 16 /min [facility] Body height 2021-07-07 03:35:00 190.5 cm [facility] Body weight 2021-07-07 03:35:00 74.027 kg [facility] BMI 2021-07-07 03:35:00 20.40 kg/m2 [facility] Oxygen saturation in Arterial blood by Pulse oximetry 2021-07-07 03:35:00 97 /min [facility] Systolic blood pressure 2021-06-13 03:01:00 142 mm[Hg] [facility] Diastolic blood pressure 2021-06-13 03:01:00 80 mm[Hg] [facility] Heart rate 2021-06-13 03:01:00 54 /min [facility] Respiratory rate 2021-06-13 03:01:00 16 /min [facility] Oxygen saturation in Arterial blood by Pulse oximetry 2021-06-13 03:01:00 100 /min [facility] Body temperature 2021-06-13 01:11:00 37.22 Madeleine [facility] Body height 2021-06-13 01:11:00 180.3 cm [facility] Body weight 2021-06-13 01:11:00 80.74 kg [facility] BMI 2021-06-13 01:11:00 24.83 kg/m2 [facility] Systolic blood pressure 2021-06-10 23:12:00 114 mm[Hg] [facility] Diastolic blood pressure 2021-06-10 23:12:00 81 mm[Hg] [facility] Heart rate 2021-06-10 23:12:00 73 /min [facility] Body temperature 2021-06-10 23:12:00 37.11 Madeleine [facility] Respiratory rate 2021-06-10 23:12:00 16 /min [facility] Body height 2021-06-10 23:12:00 180 cm [facility] Body weight 2021-06-10 23:12:00 70.308 kg [facility] BMI 2021-06-10 23:12:00 21.70 kg/m2 [facility] Oxygen saturation in Arterial blood by Pulse oximetry 2021-06-10 23:12:00 99 /min [facility] height 2021-05-26 10:00:00 74 [in_i] Commo n [facility] weight 2021-05-26 10:00:00 166.6 [lb_av] Co mmon [facility] temperature 2021-05-26 10:00:00 96.7 [degF] Com mon [facility] bmi 2021-05-26 10:00:00 21.39 kg/m2 Comm on [facility] oximetry 2021-05-26 10:00:00 98 [facility] 2021-05-26 10:00:00 16 /min [facility] blood pressure systolic 2021-05-26 10:00:00 128 mm[Hg] [facility] blood pressure diastolic 2021-05-26 10:00:00 65 mm[Hg] [facility] Systolic blood pressure 2021-03-09 13:01:00 134 mm[Hg] [facility] Diastolic blood pressure 2021-03-09 13:01:00 73 mm[Hg] [facility] Heart rate 2021-03-09 13:01:00 76 /[facility] 2021-03-09 13:01:00 36.39 Madeleine [facility] Respiratory rate 2021-03-09 13:01:00 18 /min [facility] Body weight 2021-03-09 13:01:00 77.111 kg [facility] BMI 2021-03-09 13:01:00 21.25 kg/m2 [facility] Oxygen saturation in Arterial blood by Pulse oximetry 2021-03-09 13:01:00 96 /min [facility] bmi 2021-02-23 09:20:00 21.57 kg/m2 Comm on [facility] oximetry 2021-02-23 09:20:00 99 % Commo n [facility] respiratory rate 2021-02-23 09:20:00 16 /min Common [facility] blood pressure systolic 2021-02-23 09:20:00 131 mm[Hg] [facility] diastolic 2021-02-23 09:20:00 61 mm[Hg] Common [facility] height 2021-02-23 09:20:00 74 [in_i] Commo n [facility] weight 2021-02-23 09:20:00 168.0 [lb_av] Co mmon [facility] temperature 2021-02-23 09:20:00 97.2 [degF] Com mon [facility] Systolic blood pressure 2020-12-20 03:00:00 152 mm[Hg] [facility] Diastolic blood pressure 2020-12-20 03:00:00 61 mm[Hg] [facility] Heart rate 2020-12-20 03:00:00 63 /min [facility] Respiratory rate 2020-12-20 03:00:00 16 /min [facility] Oxygen saturation in Arterial blood by Pulse oximetry 2020-12-20 03:00:00 97 /min [facility] Body temperature 2020-12-20 00:28:00 37.61 Madeleine [facility] Body height 2020-12-20 00:28:00 190.5 cm [facility] Body weight 2020-12-20 00:28:00 77.111 kg [facility] BMI 2020-12-20 00:28:00 21.25 kg/m2 [facility] Systolic blood pressure 2020-12-09 16:00:00 128 mm[Hg] [facility] Diastolic blood pressure 2020-12-09 16:00:00 74 mm[Hg] [facility] Heart rate 2020-12-09 16:00:00 58 /min [facility] Respiratory rate 2020-12-09 16:00:00 16 /min [facility] Oxygen saturation in Arterial blood by Pulse oximetry 2020-12-09 16:00:00 99 /min [facility] Body temperature 2020-12-09 15:02:00 36.5 Madeleine [facility] Body weight 2020-12-09 15:02:00 74.844 kg [facility] BMI 2020-12-09 15:02:00 22.38 kg/m2 [facility] Systolic blood pressure 2020-09-02 21:51:34 134 mm[Hg] [facility] Diastolic blood pressure 2020-09-02 21:51:34 76 mm[Hg] [facility] Heart rate 2020-09-02 21:51:34 52 /min [facility] Respiratory rate 2020-09-02 21:51:34 16 /min [facility] Oxygen saturation in Arterial blood by Pulse oximetry 2020-09-02 21:51:34 99 /min [facility] Body temperature 2020-09-02 20:22:00 37.11 Madeleine [facility] Body height 2020-09-02 20:22:00 182.9 cm [facility] Body weight 2020-09-02 20:22:00 74.844 kg [facility] BMI 2020-09-02 20:22:00 22.38 kg/m2 [facility] Systolic blood pressure 2020-08-26 20:02:00 128 mm[Hg] [facility] Diastolic blood pressure 2020-08-26 20:02:00 61 mm[Hg] [facility] Heart rate 2020-08-26 20:02:00 52 /min [facility] Respiratory rate 2020-08-26 20:02:00 17 /min [facility] Oxygen saturation in Arterial blood by Pulse oximetry 2020-08-26 20:02:00 100 /min [facility] Body temperature 2020-08-26 18:06:00 36.44 Madeleine [facility] Body height 2020-08-26 18:06:00 188 cm [facility] Body weight 2020-08-26 18:06:00 81.647 kg [facility] BMI 2020-08-26 18:06:00 23.11 kg/m2 [facility] Systolic blood pressure 2020-07-16 16:00:00 135 mm[Hg] [facility] Diastolic blood pressure 2020-07-16 16:00:00 75 mm[Hg] [facility] Heart rate 2020-07-16 16:00:00 66 /min [facility] Respiratory rate 2020-07-16 16:00:00 19 /min [facility] Oxygen saturation in Arterial blood by Pulse oximetry 2020-07-16 16:00:00 98 /min [facility] Body temperature 2020-07-16 15:33:00 36.39 Madeleine [facility] Body weight 2020-07-16 15:33:00 81.647 kg [facility] BMI 2020-07-16 15:33:00 22.50 kg/m2 [facility] Systolic blood pressure 2020-07-11 23:16:00 149 mm[Hg] [facility] Diastolic blood pressure 2020-07-11 23:16:00 73 mm[Hg] [facility] Heart rate 2020-07-11 23:16:00 66 /min [facility] Body temperature 2020-07-11 23:16:00 36.83 Madeleine [facility] Respiratory rate 2020-07-11 23:16:00 20 /min [facility] Body weight 2020-07-11 23:16:00 81.647 kg [facility] BMI 2020-07-11 23:16:00 22.50 kg/m2 [facility] Oxygen saturation in Arterial blood by Pulse oximetry 2020-07-11 23:16:00 100 /min [facility] Body weight 2020-06-26 19:06:00 81.647 kg [facility] BMI 2020-06-26 19:06:00 22.50 kg/m2 [facility] Systolic blood pressure 2020-06-26 19:03:00 134 mm[Hg] [facility] Diastolic blood pressure 2020-06-26 19:03:00 64 mm[Hg] [facility] Heart rate 2020-06-26 19:03:00 70 /min [facility] Body temperature 2020-06-26 19:03:00 36.72 Madeleine [facility] Respiratory rate 2020-06-26 19:03:00 18 /min [facility] Body height 2020-06-26 19:03:00 190.5 cm [facility] Oxygen saturation in Arterial blood by Pulse oximetry 2020-06-26 19:03:00 96 /min [facility] Systolic blood pressure 2020-01-28 19:30:00 132 mm[Hg] [facility] Diastolic blood pressure 2020-01-28 19:30:00 80 mm[Hg] [facility] Heart rate 2020-01-28 19:30:00 56 /min [facility] Respiratory rate 2020-01-28 19:30:00 19 /min [facility] Oxygen saturation in Arterial blood by Pulse oximetry 2020-01-28 19:30:00 99 /min [facility] Body temperature 2020-01-28 17:09:00 37 Madeleine [facility] Body height 2020-01-28 17:09:00 188 cm [facility] Body weight 2020-01-28 17:09:00 81.647 kg [facility] BMI 2020-01-28 17:09:00 23.11 kg/m2 [facility] Systolic blood pressure 2019-02-17 02:05:00 129 mm[Hg] [facility] Diastolic blood pressure 2019-02-17 02:05:00 73 mm[Hg] [facility] Heart rate 2019-02-17 02:05:00 72 /min [facility] Body temperature 2019-02-17 02:05:00 36.83 Madeleine [facility] Respiratory rate 2019-02-17 02:05:00 18 /min [facility] Oxygen saturation in Arterial blood by Pulse oximetry 2019-02-17 02:05:00 99 /min [facility] Body height 2019-02-16 21:30:00 193 cm [facility] Body weight 2019-02-16 21:30:00 77.111 kg [facility] BMI 2019-02-16 21:30:00 20.69 kg/m2 [facility] Procedures Procedure Date / Time Performed Performing Clinician Source URINALYSIS 2024-06-14 05:25:00 Vibha Chandler [facility] URINALYSIS 2024-06-02 13:41:00 Karen Stewart [facility] CT HEAD WO CONTRAST 2024-06-02 13:30:00 Brigida Stewart ra [facility] MAGNESIUM 2024-06-02 13:16:00 Karen Stewart [facility] COMP. METABOLIC PANEL (19703) 2024-06-02 13:16:00 Karen Stewart [facility] CBC WITH DIFF 2024-06-02 13:16:00 Karen Stewart [facility] HIV 1/2 AG-AB WITH REFLEX 2024-06-02 13:16:00 Karen Stewart [facility] RAPID STREP SCREEN FOR GROUP A 2024-04-08 01:22:00 Eryn Watt [facility] INFLUENZA A/B RSV COVID NAAT 2024-04-08 01:22:00 Eryn Watt [facility] RAPID STREP SCREEN FOR GROUP A 2024-03-23 17:33:00 Enrike Beauchamp [facility] INFLUENZA A/B RSV COVID NAAT 2024-03-23 17:33:00 Enrike Beauchamp [facility] URINALYSIS 2023-12-05 01:26:00 Marcia Camacho [facility] CREATINE KINASE 2023-12-05 00:54:00 Marcia Camacho [facility] MAGNESIUM 2023-12-05 00:54:00 Marcia Camacho [facility] COMP. METABOLIC PANEL (88715) 2023-12-05 00:54:00 Marcia Camacho [facility] CBC WITH DIFF 2023-12-05 00:54:00 Marcia Camacho [facility] URINALYSIS 2023-09-14 23:37:00 [facility] LIPASE 2023-09-14 23:33:00 [facility] HEPATIC FUNCTION PANEL (32084) (ALB,T.PRO,BILI T,BU/BC,ALT,AST,ALK PHOS) 2023-09-14 23:33:00 Waqas Rios [facility] BASIC METABOLIC PANEL (NA, K, CL, CO2, GLUCOSE, BUN, CREATININE, CA) 2023-09-14 23:33:00 Waqas Rios [facility] CBC WITH DIFF 2023-09-14 23:33:00 Waqas Rios [facility] ABDOMEN PELVIS WO CONTRAST 2023-09-14 [facility]:15[facility] 2023-09-14 22:51:55 Docto r Unassigned, Holl[place] [facility] CONSENT/REFUSAL FOR DIAGNOSIS AND TREATMENT 2023-09-14 21:51:50 Doctor Unassigned, [place] [facility] XR CHEST 2 VW 2023-08-22 04:40:58 [facility] ASSIGNMENT OF BENEFITS 2023-08-22 04:35:06 Docto r Unassigned, Holliday [facility] RAPID INFLUENZA A/B 2023-08-22 04:17:00 Saul Chambers [facility] COVID-19 (ID NOW RAPID TESTING) 2023-08-22 04:17:00 Saul Chambers [facility] CONSENT/REFUSAL FOR DIAGNOSIS AND TREATMENT 2023-08-22 03:39:13 Doctor Unassigned, [place] [facility] RAPID INFLUENZA A/B 2023-06-24 00:48:00 Brett Thorpe [facility] COVID-19 (ID NOW RAPID TESTING) 2023-06-24 00:48:00 Leonidas Brett [facility] CONSENT/REFUSAL FOR DIAGNOSIS AND TREATMENT 2023-06-24 00:10:13 Doctor Unassigned, [place] [facility] ASSIGNMENT OF BENEFITS 2023-04-13 17:51:22 Docto r Unassigned, Holl[place] [facility] COVID-19 (ID NOW RAPID TESTING) 2023-04-13 17:02:00 Damien Mclaughlin [facility] CONSENT/REFUSAL FOR DIAGNOSIS AND TREATMENT 2023-04-13 15:56:27 Doctor Unassigned, [place] [facility] ASSIGNMENT OF BENEFITS 2023-01-13 19:04:38 Docto r Unassigned, [place] [facility] CONSENT/REFUSAL FOR DIAGNOSIS AND TREATMENT 2023-01-13 18:36:39 Doctor Unassigned, Holliday [facility] XR CHEST 2 VW 2022-07-25 05:14:39 Waqas Rios [facility] RAPID INFLUENZA A/B 2022-07-25 04:55:00 Abby Rios [facility] COVID-19 (ID NOW RAPID TESTING) 2022-07-25 04:55:00 Waqas Rios [facility] CONSENT/REFUSAL FOR DIAGNOSIS AND TREATMENT 2022-07-25 04:14:04 Doctor Unassigned, Holliday [facility] XR CHEST 1 VW 2022-03-05 22:42:22 Venu Rider [facility] RAPID INFLUENZA A/B 2022-03-05 22:31:00 Venu Rider [facility] COVID-19 (ID NOW RAPID TESTING) 2022-03-05 22:31:00 Venu Rider [facility] CONSENT/REFUSAL FOR DIAGNOSIS AND TREATMENT 2022-03-05 21:24:42 Doctor Unassigned, [place] [facility] XR KNEE 3 VW LEFT 2022-01-23 01:18:24 Karen Stewart [facility] XR CHEST 2 VW 2022-01-11 14:12:17 Damien Mclaughlin [facility] CONSENT/REFUSAL FOR DIAGNOSIS AND TREATMENT 2022-01-11 13:44:33 Doctor Unassigned, Holl[place] [facility] CT ABDOMEN PELVIS WO CONTRAST 2021-11-03 02:14:00 Vibha Chandler [facility] LIPASE 2021-11-03 00:45:00 Vibha Chandler [facility] COMP. METABOLIC PANEL ([id number]) 2021-11-03 00:45:00 Vibha Chandler [facility] CBC WITH DIFF 2021-11-03 00:45:00 Vibha Chandler [facility] URINALYSIS 2021-11-03 00:45:00 Vibha Chandler [facility] CONSENT/REFUSAL FOR DIAGNOSIS AND TREATMENT 2021-11-02 23:52:10 Doctor Unassigned, [place] [facility] ASSIGNMENT OF BENEFITS 2021-10-23 15:39:10 Docto r Unassigned, Holliday [facility] CONSENT/REFUSAL FOR DIAGNOSIS AND TREATMENT 2021-10-23 15:16:02 Doctor Unassigned, Holliday [facility] URINALYSIS 2021-10-16 18:00:00 Karen Stewart [facility] CONSENT/REFUSAL FOR DIAGNOSIS AND TREATMENT 2021-10-16 17:44:53 Doctor Unassigned, [place] [facility] XR CHEST 1 VW 2021-10-10 01:34:26 Damon Vasquez [facility] RAPID INFLUENZA A/B 2021-10-10 01:09:00 Damon Vasquez [facility] COVID-19 (ID NOW RAPID TESTING) 2021-10-10 01:09:00 Damon Vasquez [facility] CONSENT/REFUSAL FOR DIAGNOSIS AND TREATMENT 2021-10-10 00:35:14 Doctor Unassigned, [place] [facility] NOTICE OF PRIVACY PRACTICES 2021-08-02 23:17:17 Doctor Unassigned, [place] [facility] CONSENT/REFUSAL FOR DIAGNOSIS AND TREATMENT 2021-08-02 23:16:59 Doctor Unassigned, [place] [facility] URINALYSIS 2021-07-07 03:57:00 Diomedes Russo [facility] RAPID INFLUENZA A/B 2021-07-07 03:57:00 Diomedes Russo [facility] COVID-19 (ID NOW RAPID TESTING) 2021-07-07 03:57:00 Diomedes Russo [facility] CONSENT/REFUSAL FOR DIAGNOSIS AND TREATMENT 2021-07-07 03:21:45 Doctor Unassigned, [place] [facility] XR ABDOMEN ACUTE SERIES 2021-06-13 01:52:53 Do radha Mclaughlin [facility] LACTIC ACID WHOLE BLOOD 2021-06-13 01:42:00 Do radha Mclaughlin [facility] URINALYSIS 2021-06-13 01:35:00 [facility] URINE DRUG (IMMUNOASSAY) - COMPREHENSIVE DRUG SCREEN W/O REFLEX 2021-06-13 01:35:00 Damien Mclaughlin [facility] LIPASE 2021-06-13 01:33:00 Damien [facility] COMP. METABOLIC PANEL ([id number]) 2021-06-13 01:33:00 Damien Mclaughlin [facility] CBC WITH DIFF 2021-06-13 01:33:00 Damien Mclaughlin [facility] NOTICE OF PRIVACY PRACTICES 2021-06-13 00:55:20 Doctor Unassigned, [place] [facility] CONSENT/REFUSAL FOR DIAGNOSIS AND TREATMENT 2021-06-13 00:54:57 Doctor Unassigned, [place] [facility] CONSENT/REFUSAL FOR DIAGNOSIS AND TREATMENT 2021-06-10 23:05:00 Doctor Unassigned, [place] [facility] XR CHEST 1 VW 2021-03-09 14:05:24 Greg Chawla [facility] COVID-19 (ID NOW RAPID TESTING) 2021-03-09 13:05:00 Greg Chawla [facility] NOTICE OF PRIVACY PRACTICES 2021-03-09 13:04:32 Doctor Unassigned, [place] [facility] CONSENT/REFUSAL FOR DIAGNOSIS AND TREATMENT 2021-03-09 12:53:08 Doctor Unassigned, [place] [facility] XR CHEST 1 VW 2020-12-20 02:26:52 Enrike Beauchamp [facility] CONSENT/REFUSAL FOR DIAGNOSIS AND TREATMENT 2020-12-20 00:22:06 Doctor Unassigned, [place] [facility] COVID-19 (ID NOW RAPID TESTING) 2020-12-09 16:11:00 Brendan Mcqueen [facility] XR CHEST 1 VW 2020-12-09 15:55:25 Brendan Mcqueen [facility] CONSENT/REFUSAL FOR DIAGNOSIS AND TREATMENT 2020-12-09 14:44:01 Doctor Unassigned, Holl[place] [facility] COMP. METABOLIC PANEL ([id number]) 2020-09-02 20:52:00 Newton [facility] CBC WITH DIFF 2020-09-02 20:52:00 Newton [facility] CONSENT/REFUSAL FOR DIAGNOSIS AND TREATMENT 2020-09-02 20:10:21 Doctor Unassigned, Holl[place] [facility] CT ABDOMEN PELVIS WO CONTRAST 2020-08-26 19:51:01 Marcia Camacho [facility] LIPASE 2020-08-26 19:09:00 Marcia Camacho [facility] HEPATIC FUNCTION PANEL ([id number]) (ALB,T.PRO,BILI T,BU/BC,ALT,AST,ALK PHOS) 2020-08-26 19:09:00 Marcia Camacho [facility] BASIC METABOLIC PANEL (NA, K, CL, CO2, GLUCOSE, BUN, CREATININE, CA) 2020-08-26 19:09:00 Marcia Camacho [facility] CBC WITH DIFF 2020-08-26 19:09:00 Marcia Camacho [facility] URINALYSIS 2020-08-26 19:09:00 Marcia Camacho [facility] NOTICE OF PRIVACY PRACTICES 2020-08-26 17:54:01 Doctor Unassigned, [place] [facility] CONSENT/REFUSAL FOR DIAGNOSIS AND TREATMENT 2020-08-26 17:53:44 Doctor Unassigned, Holliday [facility] CREATINE KINASE 2020-07-16 16:06:00 [facility] 2020-07-16 16:06:00 Damien Mclaughlin [facility] HEPATIC FUNCTION PANEL ([id number]) (ALB,T.PRO,BILI T,BU/BC,ALT,AST,ALK PHOS) 2020-07-16 16:06:00 Damien Mclaughlin [facility] BASIC METABOLIC PANEL (NA, K, CL, CO2, GLUCOSE, BUN, CREATININE, CA) 2020-07-16 16:06:00 Damien Mclaughlin [facility] CBC WITH DIFF 2020-07-16 16:06:00 Damien Mclaughlin [facility] URINALYSIS 2020-07-11 23:45:00 Greg Chawla [facility] CONSENT/REFUSAL FOR DIAGNOSIS AND TREATMENT 2020-07-11 23:01:13 Doctor Unassigned, [place] [facility] COVID-19 (ID NOW RAPID TESTING) 2020-06-26 19:37:00 Damien Mclaughlin [facility] XR CHEST 1 VW 2020-06-26 19:21:30 Damien Mclaughlin [facility] CONSENT/REFUSAL FOR DIAGNOSIS AND TREATMENT 2020-06-26 18:28:35 Doctor Unassigned, [place] [facility] XR CHEST 1 VW COVID 2020-01-28 18:00:48 Charmaine Mclaughlin [facility] COVID-19 (ID NOW RAPID TESTING) 2020-01-28 17:46:00 Damien Mclaughlin [facility] LIPASE 2020-01-28 17:45:00 Damien [facility] TROPONIN I 2020-01-28 17:45:00 Damien Mclaughlin [facility] HEPATIC FUNCTION PANEL ([id number]) (ALB,T.PRO,BILI T,BU/BC,ALT,AST,ALK PHOS) 2020-01-28 17:45:00 Damien Mclaughlin [facility] BASIC METABOLIC PANEL (NA, K, CL, CO2, GLUCOSE, BUN, CREATININE, CA) 2020-01-28 17:45:00 Damien Mclaughlin [facility] CBC WITH DIFFERENTIAL 2020-01-28 17:45:00 David Mclaughlin [facility] PROTHROMBIN TIME / INR 2020-01-28 17:45:00 Chilo Mclaughlin [facility] ACTIVATED PARTIAL THRMPLAS TARA 2020-01-28 17:45:00 Damien Mclaughlin [facility] N-TERMINAL PRO-BNP 2020-01-28 17:45:00 Mclaughlin, Damien [facility] NOTICE OF PRIVACY PRACTICES 2020-01-28 16:57:05 Doctor Unassigned, [place] [facility] CONSENT/REFUSAL FOR DIAGNOSIS AND TREATMENT 2020-01-28 16:56:50 Doctor Unassigned, [place] [facility] EMERGENCY SERVICES AGREEMENTS AND AUTHORIZATIONS 2019-08-21 06:01:00 Doctor Unassigned, [place] [facility] CONSENT/REFUSAL FOR DIAGNOSIS AND TREATMENT 2019-08-21 05:45:14 Doctor Unassigned, [place] [facility] US TESTICULAR TORSION 2019-02-17 01:11:26 Enrike Beauchamp ige [facility] COMP. METABOLIC PANEL ([id number]) 2019-02-17 00:22:00 Enrike Beauchamp [facility] CBC WITH DIFFERENTIAL 2019-02-17 00:22:00 Enrike Beauchamp ige [facility] URINALYSIS 2019-02-16 22:48:00 Enrike Beauchamp [facility] CONSENT/REFUSAL FOR DIAGNOSIS AND TREATMENT 2019-02-16 21:18:34 Doctor Unassigned, [place] [facility] Encounters Start Date/Time End Date/Time Encounter Type Admission Type Attending [facility] Care Facility Care Department Encounter ID Source 2024-06-04 08:17:00 Outpatient [facility] [id number] [facility] 2023-07-02 15:46:00 Out[facility] [id number] [facility] 2022-09-18 13:14:00 Outpatient Mary [facility]a [facility] [id number] [facility] 2022-05-16 13:58:00 Outpatient Marilyn Hughes [facility] [id number] [facility] 2021-12-12 10:22:00 Outpatient Marilyn Hughes [facility] [id number] [facility] 2021-08-16 14:09:19 Outpatient Saul [facility] [id number] [facility] 2021-08-16 14:08:09 Outpatient Hughes, Na [facility] [id number] [facility] 2021-08-16 13:38:29 Outpatient Hughes, Na [facility] [id number] [facility] 2021-08-16 12:54:19 Outpatient Hughes, Na [facility] [id number] [facility] 2021-08-16 12:52:40 Outpatient Hughes, Na [facility] [id number] [facility] [facility] 2021-08-16 12:51:52 Outpatient Hughes, Na STLMLC STLMLC [id number] [facility] 2021-08-16 12:23:14 Outpatient Hughes, Na STLMLC STLMLC [id number] [facility] 2021-08-16 12:22:52 Outpatient Hughes, Na STLMLC STLMLC [id number] [facility] 2021-08-16 12:21:41 Outpatient STLMLC STLMLC [id number] [facility] 2021-08-16 12:15:22 Outpatient STLMLC STLMLC [id number] [facility] 2021-08-16 11:53:33 Outpatient Zabrina Aguilar STLMLC STLMLC [id number] [facility] 2021-08-16 11:26:07 Outpatient Zabrina Aguilar STLMLC STLMLC [id number] [facility] 2024-06-13 22:19:00 2024-06-14 01:30:00 Emergency X VIBHA CHANDLER WAKILI [facility] [id number] [facility] 2024-06-13 22:19:00 2024-06-14 01:30:00 Emergency Sadia Chandlerkialonzo Lujan [facility] 1.2.840.114 350.1.13.10 4.2.7.2.686 [id number] [facility] 2024-06-08 00:00:00 2024-06-08 00:00:00 OFFICE VISIT NEW PT LEVEL 4 [id number] 2024-06-04 00:00:00 2024-06-04 00:00:00 (TEL[facility] [id number] [facility] 2024-06-02 06:49:00 2024-06-02 09:55:00 Emergency Karen Stewart [facility] 1.2.840.114 350.1.13.10 4.2.7.2.686 [id number] [facility] 2024-04-07 19:29:00 2024-04-07 23:07:00 Emergency ERYN LANDEROS [facility] ERT [id number] [facility] 2024-04-07 19:29:00 2024-04-07 23:07:00 Emergency Enrike Beauchamp Terrence C [facility] 1.2.840.114 350.1.13.10 4.2.7.2.686 [id number] [facility] 2024-03-23 11:41:00 2024-03-23 15:58:00 Emergency Enrike HENAO K [facility] ERT [id number] [facility] 2024-03-23 11:41:00 2024-03-23 15:58:00 Emergency Enrike Beauchamp [facility] 1.2.840.114 350.1.13.10 4.2.7.2.686 [id number] [facility] 2023-12-04 19:05:00 2023-12-05 00:01:00 Emergency X MARCIA CAMACHO [facility] ERT [id number] [facility] 2023-12-04 19:05:00 2023-12-05 00:01:00 Emergency Marcia Camacho [facility] 1.2.840.114 350.1.13.10 4.2.7.2.686 [id number] [facility] 2023-09-14 16:20:00 2023-09-14 19:43:00 Emergency X WAQAS RIOS [facility] ERT [id number] [facility] 2023-09-14 16:20:00 2023-09-14 19:43:00 Emergency Waqas Rios [facility] 1.2.840.114 350.1.13.10 4.2.7.2.686 [id number] [facility] 2023-08-21 22:17:00 2023-08-22 00:32:00 Emergency X SAUL CHAMBERS [facility] ERT [id number] [facility] 2023-08-21 22:17:00 2023-08-22 00:32:00 Emergency Saul Chambers [facility] 1.2.840.114 350.1.13.10 4.2.7.2.686 [id number] [facility] 2023-07-03 00:00:00 2023-07-03 00:00:00 OFFICE VISIT ESTAB PT LEVEL 4 STLMLC STLMLC [id number] [facility] 2023-06-23 18:28:00 2023-06-23 21:05:00 Emergency X BRETT THORPE BRETT THORPE [facility] ERT [id number] [facility] 2023-06-23 18:28:00 2023-06-23 21:05:00 Emergency Brett Thorpe [facility] 1.2.840.114 350.1.13.10 4.2.7.2.686 [id number] [facility] 2023-04-13 11:15:00 2023-04-13 13:14:00 Emergency X DAMIEN MCLAUGHLIN [facility] ERT [id number] [facility] 2023-04-13 11:15:00 2023-04-13 13:14:00 Emergency Damien Mclaughlin [facility] 1.2.840.114 350.1.13.10 4.2.7.2.686 [id number] [facility] 2023-01-13 13:40:00 2023-01-13 14:48:00 Emergency X LILIA ROWLAND [facility] ERT [id number] [facility] 2023-01-13 13:40:00 2023-01-13 14:48:00 Emergency Lilia Rowland [facility] 1.2.840.114 350.1.13.10 4.2.7.2.686 [id number] [facility] 2022-07-24 22:22:00 2022-07-25 00:33:00 Emergency X WAQAS RIOS [facility] ERT [id number] [facility] 2022-07-24 22:22:00 2022-07-25 00:33:00 Emergency Waqas Rios [facility] 1.2.840.114 350.1.13.10 4.2.7.2.686 [id number] [facility] 2022-05-21 00:00:00 2022-05-21 00:00:00 (TEL) STLMLC STLMLC [id number] [facility] 2022-05-18 00:00:00 2022-05-18 00:00:00 OFFICE VISIT EST PT LEVEL 3 STLMLC STLMLC [id number] [facility] 2022-05-01 00:00:00 2022-05-01 00:00:00 (TEL) STLMLC STLMLC [id number] [facility] 2022-05-01 00:00:00 2022-05-01 00:00:00 (TEL) STLMLC STLMLC [id number] [facility] 2022-03-05 16:36:00 2022-03-05 18:39:00 Emergency X VENU RIDER [facility] ERT [id number] [facility] 2022-03-05 16:36:00 2022-03-05 18:39:00 Emergency Venu Rider [facility] 1.2.840.114 350.1.13.10 4.2.7.2.686 [id number] [facility] 2022-02-13 00:00:00 2022-02-13 00:00:00 OFFICE VISIT EST PT LEVEL 3 STLC STLC [id number] [facility] 2022-01-22 20:01:00 2022-01-22 21:51:00 Emergency X KAREN STEWART [facility] ERT [id number] [facility] 2022-01-22 20:01:00 2022-01-22 21:51:00 Emergency Karen Stewart [facility] 1.2.840.114 350.1.13.10 4.2.7.2.686 [id number] [facility] 2022-01-16 13:38:00 2022-01-16 14:01:00 Emergency X KAREN STEWART [facility] ERT [id number] [facility] 2022-01-16 13:38:00 2022-01-16 14:01:00 Emergency Karen Stewart [facility] 1.2.840.114 350.1.13.10 4.2.7.2.686 [id number] [facility] 2022-01-11 08:49:00 2022-01-11 09:41:00 Emergency X DAMIEN MCLAUGHLIN [facility] ERT [id number] [facility] 2022-01-11 08:49:00 2022-01-11 09:41:00 Emergency Damien Mclaughlin [facility] 1..840.114 350.1.13.10 4.2.7.2.686 [id number] [facility] 2021-11-02 19:00:00 2021-11-02 22:52:00 Emergency X VIBHA CHANDLER [facility] ERT [id number] [facility] 2021-11-02 19:00:00 2021-11-02 22:52:00 Emergency Vibha Chandler [facility] 1..840.114 350.1.13.10 4.2.7.2.686 [id number] [facility] 2021-10-23 10:35:00 2021-10-23 11:34:00 Emergency X DIOMEDES RUSSO [facility] ERT [id number] [facility] 2021-10-23 10:35:00 2021-10-23 11:34:00 Emergency Diomedes Russo [facility] 1..840.114 350.1.13.10 4.2.7.2.686 [id number] [facility] 2021-10-16 13:09:00 2021-10-16 15:19:00 Emergency X TERRY KAREN [facility] ERT [id number] [facility] 2021-10-16 13:09:00 2021-10-16 15:19:00 Emergency Karen Stewart [facility] 1..840.114 350.1.13.10 4.2.7.2.686 [id number] [facility] 2021-10-16 00:00:00 2021-10-16 00:00:00 Orders Only Doctor Unassigned, Holliday [facility] 1.114 350.1.13.10 4.2.7.2.686 [id number] [facility] 2021-10-09 19:51:00 2021-10-09 21:58:00 Emergency X DAMON VASQUEZ [facility] ERT [id number] [facility] 2021-10-09 19:51:00 2021-10-09 21:58:00 Emergency Damon Vasquez [facility] 1..114 350.1.13.10 4.2.7.2.686 [id number] [facility] 2021-10-09 00:00:00 2021-10-09 00:00:00 Orders Only Doctor Unassigned, Holliday [facility] 1.114 350.1.13.10 4.2.7.2.686 [id number] [facility] 2021-09-27 00:00:00 2021-09-27 00:00:00 (TEL) STLMLC STLMLC [id number] [facility] 2021-08-29 00:00:00 2021-08-29 00:00:00 OFFICE VISIT EST PT LEVEL 3 STLMLC STLMLC [id number] [facility] 2021-08-02 17:25:00 2021-08-02 17:51:00 Emergency X DIOMEDES RUSSO [facility] ERT [id number] [facility] 2021-08-02 17:25:00 2021-08-02 17:51:00 Emergency Diomedes Russo R [facility] 1..114 350.1.13.10 4.2.7.2.686 [id number] [facility] 2021-08-02 00:00:00 2021-08-02 00:00:00 Orders Only Doctor Unassigned, Holliday [facility] 1.2.114 350.1.13.10 4.2.7.2.686 [id number] [facility] 2021-07-25 00:00:00 2021-07-25 00:00:00 (TEL) STLMLC STLMLC [id number] [facility] 2021-07-06 21:39:00 2021-07-06 22:53:00 Emergency X DIOMEDES RUSSO [facility] ERT [id number] [facility] 2021-07-06 21:39:00 2021-07-06 22:53:00 Emergency Diomedes Russo R [facility] 1.2.840.114 350.1.13.10 4.2.7.2.686 [id number] [facility] 2021-06-12 19:05:00 2021-06-12 21:21:00 Emergency X DAMIEN MCLAUGHLIN [facility] ERT [id number] [facility] 2021-06-12 19:05:00 2021-06-12 21:21:00 Emergency Damien Mclaughlin [facility] 1.2.840.114 350.1.13.10 4.2.7.2.686 [id number] [facility] 2021-06-10 17:13:00 2021-06-10 17:28:00 Emergency X GAGE SANTOSANNE [facility] ERT [id number] [facility] 2021-06-10 17:13:00 2021-06-10 17:28:00 Emergency Joy Santos [facility] 1.2.840.114 350.1.13.10 4.2.7.2.686 [id number] [facility] 2021-05-26 00:00:00 2021-05-26 00:00:00 PREV VISIT EST AGE 40-64 STLMLC STLMLC [id number] [facility] 2021-03-17 00:00:00 2021-03-17 00:00:00 (TEL) STLMLC STLMLC [id number] [facility] 2021-03-09 08:05:00 2021-03-09 09:49:00 Emergency Greg Chawla [facility] 1.2.840.114 350.1.13.10 4.2.7.2.686 [id number] [facility] 2021-03-09 07:52:00 2021-03-09 07:52:00 Emergency X GREG CHAWLA [facility] ERT [id number] [facility] 2021-03-08 00:00:00 2021-03-08 00:00:00 (TEL) STLMLC STLMLC [id number] [facility] 2021-02-23 00:00:00 2021-02-23 00:00:00 OFFICE VISIT EST PT LEVEL 3 STLMLC STLMLC [id number] [facility] 2020-12-19 19:32:00 2020-12-19 22:24:00 Emergency Enrike Beauchamp [facility] 1.2.840.114 350.1.13.10 4.2.7.2.686 [id number] [facility] 2020-12-19 19:32:00 2020-12-19 19:32:00 Emergency X Enrike BEAUCHAMP [facility] ERT [id number] [facility] 2020-12-09 10:17:00 2020-12-09 12:57:00 Emergency Brendan Mcqueen [facility] 1.2.840.114 350.1.13.10 4.2.7.2.686 [id number] [facility] 2020-12-09 10:17:00 2020-12-09 12:57:00 Emergency X BRENDAN MCQUEEN [facility] ERT [id number] [facility] 2020-11-22 00:00:00 2020-11-22 00:00:00 Patient Secure Msg Doctor Unassigned, [place] [facility] 1.0.114 350.1.13.10 4.2.7.2.686 [id number] [facility] 2020-11-10 00:00:00 2020-11-10 00:00:00 Outpatient STLMLC STLMLC [id number] [facility] 2020-11-03 00:00:00 2020-11-03 00:00:00 Outpatient STLMLC STLMLC [id number] [facility] 2020-11-03 00:00:00 2020-11-03 00:00:00 Outpatient STLMLC STLMLC [id number] [facility] 2020-09-02 14:28:00 2020-09-02 16:23:00 Emergency Samantha Glez [facility] 1..114 350.1.13.10 4.2.7.2.686 [id number] [facility] 2020-09-02 14:12:00 2020-09-02 14:12:00 Emergency X [facility] ERT [id number] [facility] 2020-08-26 12:08:00 2020-08-26 15:10:00 Emergency Marcia Camacho G [facility] 1..114 350.1.13.10 4.2.7.2.686 [id number] [facility] 2020-08-26 12:08:00 2020-08-26 12:08:00 Emergency X MARCIA CAMACHO [facility] ERT [id number] [facility] 2020-08-26 00:00:00 2020-08-26 00:00:00 Orders Only Doctor Unassigned, Holliday [facility] 1.840.114 350.1.13.10 4.2.7.2.686 [id number] [facility] 2020-08-20 00:00:00 2020-08-20 00:00:00 Outpatient STLMLC STLMLC [id number] [facility] 2020-08-10 00:00:00 2020-08-10 00:00:00 Outpatient STLMLC STLMLC [id number] [facility] 2020-08-09 00:00:00 2020-08-09 00:00:00 Outpatient STLMLC STLMLC [id number] [facility] 2020-08-09 00:00:00 2020-08-09 00:00:00 Outpatient STLMLC STLMLC [id number] [facility] 2020-07-16 09:32:00 2020-07-16 11:31:00 Emergency Arnoldo [facility] 1.2.840.114 350.1.13.10 4.2.7.2.686 [id number] [facility] 2020-07-16 09:32:00 2020-07-16 09:32:00 Emergency X [facility] ERT [id number] [facility] 2020-07-11 18:39:00 2020-07-11 18:59:00 Emergency Amarilys Thompson [facility] 1.2.840.114 350.1.13.10 4.2.7.2.686 [id number] [facility] 2020-07-11 17:01:00 2020-07-11 17:01:00 Emergency X [facility] ERT [id number] [facility] 2020-06-26 12:58:00 2020-06-26 14:42:00 Emergency Arnoldo [facility] 1.2.840.114 350.1.13.10 4.2.7.2.686 [id number] [facility] 2020-06-26 12:27:00 2020-06-26 12:27:00 Emergency X [facility] ERT [id number] [facility] 2020-05-02 00:00:00 2020-05-02 00:00:00 Outpatient STLMLC STLMLC [id number] [facility] 2020-04-28 00:00:00 2020-04-28 00:00:00 Outpatient STLMLC STLMLC [id number] [facility] 2020-01-30 00:00:00 2020-01-30 00:00:00 Patient Secure Msg Doctor Unassigned, Holl[place] [facility] 1.2.840.114 350.1.13.10 4.2.7.2.686 [id number] [facility] 2020-01-28 12:25:33 2020-01-28 14:45:00 Emergency Damien Mclaughlin [facility] 1.2.840.114 350.1.13.10 4.2.7.2.686 [id number] [facility] 2020-01-28 11:57:00 2020-01-28 11:57:00 Emergency X [facility] ERT [id number] [facility] 2020-01-28 00:00:00 2020-01-28 00:00:00 Orders Only Doctor Unassigned, Holliday [facility] 1.2.840.114 350.1.13.10 4.2.7.2.686 [id number] [facility] 2020-01-10 20:16:00 2020-01-10 20:16:00 [facility] [id number] [facility] 2020-01-01 13:00:00 2020-01-01 13:00:00 Outpatient [facility] [id number] [facility] 2019-10-15 14:36:00 2019-10-15 14:36:00 Outpatient [facility] [id number] [facility] 2019-10-12 13:24:00 2019-10-12 13:24:00 [facility] [id number] [facility] 2019-10-01 13:15:00 2019-10-01 13:15:00 [facility] [id number] [facility] 2019-08-21 00:00:00 2019-08-21 00:00:00 Orders Only Doctor Unassigned, Holliday [facility] 1.2.840.114 350.1.13.10 4.2.7.2.686 [id number] [facility] 2019-08-20 00:00:00 2019-08-20 00:00:00 Orders Only Doctor Unassigned, Holliday [facility] 1.2.840.114 350.1.13.10 4.2.7.2.686 [id number] [facility] 2019-06-12 00:37:00 2019-06-12 00:37:00 [facility] Medicine [id number] [facility] 2019-05-29 13:40:00 2019-05-29 13:40:00 [facility] [id number] [facility] 2019-02-20 13:40:00 2019-02-20 13:40:00 [facility] [id number] [facility] 2019-02-16 17:36:38 2019-02-16 21:18:00 Emergency Enrike Beauchamp [facility] 1.2.840.114 350.1.13.10 4.2.7.2.686 [id number] [facility] 2019-01-01 13:16:00 2019-01-01 13:16:00 [facility] [id number] [facility] 2018-11-10 13:18:00 2018-11-10 13:18:[address] [facility] [facility] [address] [facility] [id number] [facility] 2018-11-07 14:40:00 2018-11-07 14:40:[address] [facility] [facility] [id number] [facility] 2018-10-06 12:57:00 2018-10-06 12:57:[address] [facility] [facility] [address] [facility] [id number] [facility] 2018-09-30 16:25:00 2018-09-30 16:25:[address] [facility] [facility] [place] [facility] [id number] [facility] 2018-09-19 13:30:00 2018-09-19 13:30:00 [facility] [facility] [address] [facility] [place] [facility] [id number] [facility] 2018-08-08 15:00:00 2018-08-08 15:00:00 [facility] [address] [facility] [place] [facility] [id number] [facility] 2018-03-19 10:58:00 2018-03-19 10:58:00 [facility] [address] [facility] [place] [facility] [id number] [facility] 2018-03-19 09:30:00 2018-03-19 09:30:00 [facility] [address] [facility] [place] [facility] [id number] [facility] 2018-03-04 10:03:00 2018-03-04 10:03:00 [facility] [address] [facility] [place] [facility] [id number] [facility] 2018-02-07 14:30:00 2018-02-07 14:30:[address] [facility] [facility] [place] [facility] [id number] [facility] 2017-11-08 14:15:00 2017-11-08 14:15:00 Outpatient [facility] [id number] [facility] 2017-11-08 11:21:00 2017-11-08 11:21:00 Outpatient [facility] [id number] [facility] Results Test Description Test Time Test Comments Results Result Comments Source CT HEAD WO CONTRAST 14:15:22 EXAM: CT HEAD WO CONTRAST HISTORY: 63 years-old Male; Provided indication: Transient ischemic attack(TIA) ?leg numbness . TECHNIQUE: Axial CT of the head was performed and reconstructed at 5 mmintervals. Coronal and sagittal reformatted images were generated. COMPARISON: None FINDINGS: The ventricles and cerebral sulci are normal in caliber and configuration.No midline shift or pathological extra-axial fluid collection is present.The basal cisterns are unremarkable. No acute intracranial hemorrhage or significant mass effect is visualized.No parenchymal attenuation abnormality is seen. The shepherd-white matterdifferentiation is preserved. The mastoid air cells and visualized paranasal air sinuses are clear. Thecalvarium and central skull base are unremarkable. [facility] (ALB,T.PRO,BILI T,BU/BC,ALT,AST,ALK PHOS)2023-09-15 00:45:56* Test Item Value Reference Range Interpretation Comme nts TOTAL BILI (test code = 0953739532) 0.4 mg/dL 0.1-1.1 BILI UNCON (test code = 4948260952) 0.2 mg/dL 0.1-1.1 BILI CONJ (test code = 0635325373) 0.0 mg/dL 0.0-0.3 T PROTEIN (test code = 6665238409) 7.5 g/dL 6.3-8.2 ALBUMIN (test code = 4423572978) 4.2 g/dL 3.5-5.0 ALK PHOS (test code = 9704608481) 97 U/L 34-122 ALTv (test code = 1742-6) 22 U/L 5-50 AST(SGOT) (test code = 2810751690) 42 U/L 13-40 H Lab Interpretation (test cod e = 13647-9) [facility] (NA, K, CL, CO2, GLUCOSE, BUN, CREATININE, CA)2023-09-15 00:45:36* Test Item Value Reference Range Interpretation Comme nts NA (test code = 8680178395) 139 mmol/L 135-145 K (test code = 7461066680) 4.0 mmol/L 3.5-5.0 CL (test code = 6536141938) 108 mmol/L 98-108 CO2 TOTAL (test code = 7247966411) 30 mmol/L 23-31 AGAP (test code = 1283213378) 1 2-16 L BUN (test code = 1661053437) 17 mg/dL 7-23 GLUCOSE (test code = 9275615768) 83 mg/dL 70-110 CREATININE (test code = 2160-0) 0.89 mg/dL 0.60-1.25 CALCIUM (test code = 2765449179) 9.3 mg/dL 8.6-10.6 eGFR (test code = 72311-7) 95.7 mL/min/1.73m2 CKD-EPI eGFR (2020). Assuming creatinine has been stable day-to-day for at least three months, the eGFR indicates Category G1 (>= 90 mL/min/1.73 m2) Lab Interpretation (test code = 75235-9) [facility] Test Item Value Reference Range Interpretation Comme nts LIPASE (test code = 9219191735) 79 U/L 0-220 Lab Interpretation (test cod e = 92161-8) [facility] [id number] 00:08:31Exam: CT Abdomen and Pelvis without Contrast, 09/14/2023 4:30 PM. Ordering Physician: WAQAS RIOS. History: Abdominal pain, acute, nonlocalized . Comparison: CT abdomen pelvis 11/02/2021. Technique:CT abdomen and pelvis was obtained without intravenous contrast.CT was performed according to ALARA(As Low As Reasonably Achievable). Technical Quality: Adequate. Findings: LOWER CHEST:Mild bibasilar atelectasis. ABDOMEN/PELVIS:Liver: Normal.Gallbladder/biliary: No acute finding No biliary ductal d ilation.Pancreas: No inflammatory strandingSpleen: Normal. Adrenal glands: Bilateral hypertrophicKidneys and ureters: No nephrolithiasis or ureter stone. Nohydroureteronephrosis.Bladder: Normal.Reproductive organs: Normal for age. Stomach/bowel: Stomach is decompressed with likely physiologic diffuse wallthickening. Small bowel is nondilated. The terminal ileum demonstrates mildfatty infiltration. Appendix is normal. Portions of the descending colonare nondistended with wall thickening. Moderate stool in the rectal vault. Lymph nodes: Prominent number of nonenlarged mesenteric and retroperiton ealnodes.Peritoneum: No intraperitoneal free air. No intraperitoneal free fluid.Vessels: Minimal Atherosclerosis without aneurysm. MUSCULOSKELETAL:Bones: No acute osseous abnormality.Soft tissues: Bilateral small fat-containing inguinal hernias.[facility] [id number] 04:54:31Ordering Physician: SAUL CHAMBERS Clinical Indication: cough Additional Clinical Information: Technical Limitations: None Comparison: None Technique: PA and lateral chest Findings: No infiltrates or effusions. Heart size and mediastinum arenormal.[facility]OL[facility] ([id number])2021-11-03 01:09:40* Test Item Value Reference Range Interpretation Comme nts NA (test code = 1211039353) 140 mmol/L 135-145 K (test code = 0022734227) 4.1 mmol/L 3.5-5.0 CL (test code = 6574640449) 107 mmol/L 98-108 CO2 TOTAL (test code = 4760122858) 27 mmol/L 23-31 AGAP (test code = 3310059937) 2-16 BUN (test code = 8866507560) 16 mg/dL 7-23 GLUCOSE (test code = 2473038158) 95 mg/dL 70-110 CREATININE (test code = 5628965154) 0.70 mg/dL 0.60-1.25 TOTAL BILI (test code = 5553761122) 0.4 mg/dL 0.1-1.1 CALCIUM (test code = 1902807707) 8.7 mg/dL 8.6-10.6 T PROTEIN (test code = 9360159469) 6.6 g/dL 6.3-8.2 ALBUMIN (test code = 3225181648) 4.1 g/dL 3.5-5.0 ALK PHOS (test code = 4431543201) 99 U/L 34-122 ALTv (test code = 1742-6) 21 U/L 5-50 AST(SGOT) (test code = 9713650226) 37 U/L 13-40 eGFR (test code = 1262746614) mL/min/1.73m2 LITZY (test code = LITZY) Association of Glomerular Filtration Rate (GFR) and Staging of Kidney Disease* + + +- +| GFR (mL/min/1.73 m2) ?| With Kidney Damage ?| ?Without Kidney Damage+ ------+ ----+ ------+| ?>90 ?| ?Stage one ?| ? Normal ?+ -+ + -+| ?60-89 ?| ?Stage two ?| ? Decreased GFR ? + + +- +| ?30-59 ?| ?Stage three ?| ? Stage three ? + + +- +| ?15-29 ?| ?Stage four ? | ? Stage four ?+ -+ + -+| ?<15 (or dialysis) ? ?| ?Stage five ? | ? Stage five ?+ -+ + -+ *Each stage assumes the associated GFR level has been in effect for at least three months. ?Stages 1 to 5, with or without kidney disease, indicate chronic kidney disease. Notes: Determination of stages one and two (with eGFR >59mL/min/1.73 m2) requires estimation of kidney damage for at least three months as defined by structural or functional abnormalities of the kidney, manifested by either:Pathological abnormalities or Markers of kidney damage (including abnormalities in the composition of the blood or urine or abnormalities in imaging tests). [facility]:09:20* Test Item Value Reference Range Interpretation Comme nts LIPASE (test code = 7595815276) 118 U/L 0-220 Lab Interpretation (test cod e = 56170-3) Normal [facility] WITH [id number] 00:53:15* Test Item Value Reference Range Interpretation Comme nts WBC (test code = 6690-2) See_Comment [Automated messa ge] The system which generated this result transmitted reference range: 4.20 - 10.70 10*3/?L. The reference range was not used to interpret this result as normal/abnormal. RBC (test code = 789-8) See_Comment [Automated messa ge] The system which generated this result transmitted reference range: 4.26 - 5.52 10*6/?L. The reference range was not used to interpret this result as normal/abnormal. HGB (test code = 718-7) 14.0 g/dL 12.2-16.4 HCT (test code = 4544-3) 41.2 % 38.4-49.3 MCV (test code = 787-2) 96.7 fL 81.7-95.6 H MCH (test code = 785-6) 32.9 pg 26.1-32.7 H MCHC (test code = 786-4) 34.0 g/dL 31.2-35.0 RDW-SD (test code = 12166-0) 46.6 fL 38.5-51.6 RDW-CV (test code = 788-0) 13.1 % 12.1-15.4 PLT (test code = 777-3) See_Comment [Automated messa ge] The system which generated this result transmitted reference range: 150 - 328 10*3/?L. The reference range was not used to interpret this result as normal/abnormal. MPV (test code = 13441-7) 10.4 fL 9.8-13.0 NRBC/100 WBC (test code = 8331661396) See_Comment [Automated [employer] ssage] The system which generated this result transmitted reference range: 0.0 - 10.0 /100 WBCs. The reference range was not used to interpret this result as normal/abnormal. NRBC x10^3 (test code = 1158357007) <0.01 See_Comment [Automated messa ge] The system which generated this result transmitted reference range: 10*3/?L. The reference range was not used to interpret this result as normal/abnormal. GRAN MAT (NEUT) % (test code = 770-8) 42.5 % IMM GRAN % (test code = 5388516739) 0.20 % LYMPH % (test code = 736-9) 42.0 % MONO % (test code = 5905-5) 13.1 % EOS % (test code = 713-8) 1.8 % BASO % (test code = 706-2) 0.4 % GRAN MAT x10^3(ANC) (test code = 9043741402) 2.08 10*3/uL 1.99-6.95 IMM GRAN x10^3 (test code = 2902415785) <0.03 0.00-0.06 LYMPH x10^3 (test code = 731-0) 2.06 10*3/uL 1.09-3.23 MONO x10^3 (test code = 742-7) 0.64 10*3/uL 0.36-1.02 EOS x10^3 (test code = 711-2) 0.09 10*3/uL 0.06-0.53 BASO x10^3 (test code = 704-7) <0.03 0.01-0.09 Lab Interpretation (test code = 06616-5) [facility]normal [facility] ([id number])2021-06-13 02:10:08* Test Item Value Reference Range Interpretation Comme nts NA (test code = 6194460735) 138 mmol/L 135-145 K (test code = 5449013902) 4.3 mmol/L 3.5-5.0 CL (test code = 1950927907) 105 mmol/L 98-108 CO2 TOTAL (test code = 6176565385) 30 mmol/L 23-31 AGAP (test code = 2813307304) 2-16 BUN (test code = 3083798756) 18 mg/dL 7-23 GLUCOSE (test code = 4566517033) 86 mg/dL 70-110 CREATININE (test code = 6961140092) 0.64 mg/dL 0.60-1.25 TOTAL BILI (test code = 8130540053) 0.4 mg/dL 0.1-1.1 CALCIUM (test code = 3542011378) 9.7 mg/dL 8.6-10.6 T PROTEIN (test code = 7103392105) 7.0 g/dL 6.3-8.2 ALBUMIN (test code = 0826169245) 4.2 g/dL 3.5-5.0 ALK PHOS (test code = 3410257388) 86 U/L 34-122 ALTv (test code = 1742-6) 20 U/L 5-50 AST(SGOT) (test code = 0626500776) 39 U/L 13-40 eGFR (test code = 4447606168) mL/min/1.73m2 LITZY (test code = LITZY) Association of Glomerular Filtration Rate (GFR) and Staging of Kidney Disease* + + +- +| GFR (mL/min/1.73 m2) ?| With Kidney Damage ?| ?Without Kidney Damage+ ------+ ----+ ------+| ?>90 ?| ?Stage one ?| ? Normal ?+ -+ + -+| ?60-89 ?| ?Stage two ?| ? Decreased GFR ? + + +- +| ?30-59 ?| ?Stage three ?| ? Stage three ? + + +- +| ?15-29 ?| ?Stage four ? | ? Stage four ?+ -+ + -+| ?<15 (or dialysis) ? ?| ?Stage five ? | ? Stage five ?+ -+ + -+ *Each stage assumes the associated GFR level has been in effect for at least three months. ?Stages 1 to 5, with or without kidney disease, indicate chronic kidney disease. Notes: Determination of stages one and two (with eGFR >59mL/min/1.73 m2) requires estimation of kidney damage for at least three months as defined by structural or functional abnormalities of the kidney, manifested by either:Pathological abnormalities or Markers of kidney damage (including abnormalities in the composition of the blood or urine or abnormalities in imaging tests). [facility] 02:09:27* Test Item Value Reference Range Interpretation Comme nts LIPASE (test code = 1769810015) 113 U/L 0-220 Lab Interpretation (test cod e = 08456-1) Normal [facility]CBC WITH [id number] 01:57:23* Test Item Value Reference Range Interpretation Comme nts WBC (test code = 6690-2) See_Comment [Automated messa ge] The system which generated this result transmitted reference range: 4.20 - 10.70 10*3/?L. The reference range was not used to interpret this result as normal/abnormal. RBC (test code = 789-8) See_Comment [Automated messa ge] The system which generated this result transmitted reference range: 4.26 - 5.52 10*6/?L. The reference range was not used to interpret this result as normal/abnormal. HGB (test code = 718-7) 14.0 g/dL 12.2-16.4 HCT (test code = 4544-3) 42.2 % 38.4-49.3 MCV (test code = 787-2) 97.2 fL 81.7-95.6 H MCH (test code = 785-6) 32.3 pg 26.1-32.7 MCHC (test code = 786-4) 33.2 g/dL 31.2-35.0 RDW-SD (test code = 61136-2) 46.7 fL 38.5-51.6 RDW-CV (test code = 788-0) 13.1 % 12.1-15.4 PLT (test code = 777-3) See_Comment [Automated [employer]] The system which generated this result transmitted reference range: 150 - 328 10*3/?L. The reference range was not used to interpret this result as normal/abnormal. MPV (test code = 38071-1) 10.9 fL 9.8-13.0 NRBC/100 WBC (test code = 0032916777) See_Comment [Automated [employer] ssage] The system which generated this result transmitted reference range: 0.0 - 10.0 /100 WBCs. The reference range was not used to interpret this result as normal/abnormal. NRBC x10^3 (test code = 1333438899) <0.01 See_Comment [Automated messa ge] The system which generated this result transmitted reference range: 10*3/?L. The reference range was not used to interpret this result as normal/abnormal. GRAN MAT (NEUT) % (test code = 770-8) 48.1 % IMM GRAN % (test code = 4642023791) 0.40 % LYMPH % (test code = 736-9) 39.4 % MONO % (test code = 5905-5) 9.2 % EOS % (test code = 713-8) 2.2 % BASO % (test code = 706-2) 0.7 % GRAN MAT x10^3(ANC) (test code = 0258453998) 2.67 10*3/uL 1.99-6.95 IMM GRAN x10^3 (test code = 5511746929) <0.03 0.00-0.06 LYMPH x10^3 (test code = 731-0) 2.18 10*3/uL 1.09-3.23 MONO x10^3 (test code = 742-7) 0.51 10*3/uL 0.36-1.02 EOS x10^3 (test code = 711-2) 0.12 10*3/uL 0.06-0.53 BASO x10^3 (test code = 704-7) 0.04 10*3/uL 0.01-0.09 Lab Interpretation (test code = 33872-5) [facility]normal [facility] [id number] 14:45:17No radiographic evidence of acute cardiopulmonary abnormality Preliminary Report Dictated by Resident: Zoltan Espinal I, Ese Segura MD., have reviewed this study and agree with theabovereport.EXAM: XR CHEST 1 VW HISTORY: 60 years-old Male; shortness of breath TECHNIQUE: Frontal radiograph of the chest. COMPARISON: 12/19/2020. FINDINGS: The lung volumes are hyperexpanded. Prominent bilateral pulmonaryvasculature. Subsegmental atelectatic band/scarring in the left lower lobe.No pleural abnormality. The cardiomediastinal silhouette is normal. No osseous lesions are identified. [facility], Radiant Results Inft User - 03/09/2021 9:47 AM CDT EXAM: XR CHEST 1 VWHISTORY: 60 years-old Male; shortness of breath TECHNIQUE: Frontal radiograph of the chest.COMPARISON: 12/19/2020.FINDINGS:The lung volumes are hyperexpanded. Prominent bilateral pulmonaryvasculature. Subsegmental atelectatic band/scarring in the left lower lobe.No pleural abnormality.The cardiomediastinal silhouette is normal.No osseous lesions are identified.IMPRESSIONNo radiographic evidence of acute cardiopulmonary abnormalityPreliminary Report Dictated by Resident: Ese Bower MD., have reviewed this study and agree with theabove report. [place] [address] (ID NOW RAPID TESTING)2021-03-09 13:30:46* Test Item Value Reference Range Interpretation Comme nts SARS-CoV-2 Rapid ID NOW (test code = 90766-1) Not Detected Not Detected LITZY (test code = LITZY) ID NOW COVID-19 As say is an isothermal nucleic acid amplification test intended for the qualitative detection of nucleic acid from SARS-CoV-2 viral RNA in nasopharyngeal (WEB PRESS OPERATOR ASSISTANT) specimens. It is used under Emergency Use Authorization (EUA) by FDA. The limit of detection (LOD) of the assay is 125 Genome Equivalents/mL. A positive result is indicative of the presence of SARS-CoV-2 RNA. ?Clinical correlation with patient history and other diagnostic information is necessary to determine patient infection status. A negative (Not Detected) result does not preclude SARS-CoV-2 infection. In patients with clinical symptoms and other tests that are consistent with SARS-CoV-2 infection, negative results should be treated as presumptive negative and a new specimen should be tested with alternative PCR molecular test. Invalid: Please collect a new specimen for repeat patient testing if clinically indicated. Lab Interpretation (test code = 54143-7) Normal [place] [address] (ID NOW RAPID TESTING)2020-12-09 17:21:38* Test Item Value Reference Range Interpretation Comme nts SARS-CoV-2 Rapid ID NOW (test code = 48179-5) Not Detected Not Detected LITZY (test code = LITZY) ID NOW COVID-19 As say is an isothermal nucleic acid amplification test intended for the qualitative detection of nucleic acid from SARS-CoV-2 viral RNA in nasopharyngeal (WEB PRESS OPERATOR ASSISTANT) specimens. It is used under Emergency Use Authorization (EUA) by FDA. The limit of detection (LOD) of the assay is 125 Genome Equivalents/mL. A positive result is indicative of the presence of SARS-CoV-2 RNA. ?Clinical correlation with patient history and other diagnostic information is necessary to determine patient infection status. A negative (Not Detected) result does not preclude SARS-CoV-2 infection. In patients with clinical symptoms and other tests that are consistent with SARS-CoV-2 infection, negative results should be treated as presumptive negative and a new specimen should be tested with alternative PCR molecular test. Invalid: Please collect a new specimen for repeat patient testing if clinically indicated. Lab Interpretation (test code = 71606-0) Normal [facility] 1 [id number] 17:00:31Clear lungs. Preliminary Report Dictated by Resident: Sandra Pollock MD., havereviewed this study and agree with theabove report.EXAM: XR CHEST 1 VW HISTORY: 60 years-old Male; cough TECHNIQUE: Single frontal view of the chest. COMPARISON: Chest radiographs dated 06/26/2020 FINDINGS: The lung apices are incompletely visualized. The lungs are well expanded. The lungs are clear. No focal consolidation,pleural effusion, or pneumothorax is visualized. The cardiomediastinal silhouette is normal. No acute osseous abnormality is present. [facility], Radiant Results Inft User - 12/09/2020 12:01 PM CDTEXAM: XR CHEST 1 VWHISTORY: 60 years-old Male; cough TECHNIQUE: Single frontal view of the chest.COMPARISON: Chest radiographs dated 06/26/2020FINDINGS:The lung apices are incompletely visualized.The lungs are well expanded. The lungs are clear. No focal consolidation,pleural effusion, or pneumothorax is visualized. The cardiomediastinal silhouette is normal. No acute osseous abnormality is present. IMPRESSIONClear lungs.Preliminary Report Dictated by Resident: Sandra Finley MD., have reviewed this study and agree with theabove report.[facility]. METABOLIC PANEL ([id number])2020-09-02 21:19:00* Test Item Value Reference Range Interpretation Comme nts NA (test code = 6297394020) 140 mmol/L 135-145 K (test code = 4305359499) 3.8 mmol/L 3.5-5 CL (test code = 8387314639) 105 mmol/L 98-108 CO2 TOTAL (test code = 9642040556) 30 mmol/L 23-31 AGAP (test code = 2863685887) 2-16 BUN (test code = 3193200753) 13 mg/dL 7-23 GLUCOSE (test code = 4564461072) 89 mg/dL 70-110 CREATININE (test code = 3382079746) 0.72 mg/dL 0.6-1.25 TOTAL BILI (test code = 7310888109) 0.5 mg/dL 0.1-1.1 CALCIUM (test code = 8216542888) 8.9 mg/dL 8.6-10.6 T PROTEIN (test code = 8764468645) 7.2 g/dL 6.3-8.2 ALBUMIN (test code = 2390119095) 4.5 g/dL 3.5-5 ALK PHOS (test code = 1962394127) 82 U/L 34-122 ALTv (test code = 1742-6) 16 U/L 5-50 AST(SGOT) (test code = 0292560747) 36 U/L 13-40 eGFR Calculation (Non-) (test code = 5062068074) mL/min/1.73m2 eGFR Calculation () (test code = 3290812168) mL/min/1.73m2 LITZY (test code = LITZY) Association of Glomerular Filtration Rate (GFR) and Staging of Kidney Disease* + -+ + ---+| GFR (mL/min/1.73 m2) ?| With Kidney Damage ?| ?Without Kidney Damage+ -------+ ------+ ---------+| ?>90 ?| ?Stage one ?| ? Normal ?+ --+ -+ ----+| ?60-89 ?| ?Stage two ?| ? Decreased GFR ? + -+ + ---+| ?30-59 ?| ?Stage three ?| ? Stage three ? + -+ + ---+| ?15-29 ?| ?Stage four ? | ? Stage four ?+ --+ -+ ----+| ?<15 (or dialysis) ? ?| ?Stage five ? | ? Stage five ?+ --+ -+ ----+ *Each stage assumes the associated GFR level has been in effect for at least three months. ?Stages 1 to 5, with or without kidney disease, indicate chronic kidney disease. Notes: Determination of stages one and two (with eGFR >59mL/min/1.73 m2) requires estimation of kidney damage for at least three months as defined by structural or functional abnormalities of the kidney, manifested by either:Pathological abnormalities or Markers of kidney damage (including abnormalities in the composition of the blood or urine or abnormalities in imaging tests). [facility] WITH [id number] 21:00:00* Test Item Value Reference Range Interpretation Comme nts WBC (test code = 6690-2) See_Comment [Automated [employer]] The system which generated this result transmitted reference range: 4.20 - 10.70 10*3/?L. The reference range was not used to interpret this result as normal/abnormal. RBC (test code = 789-8) See_Comment [Automated [employer]] The system which generated this result transmitted reference range: 4.26 - 5.52 10*6/?L. The reference range was not used to interpret this result as normal/abnormal. HGB (test code = 718-7) 14.6 g/dL 12.2-16.4 HCT (test code = 4544-3) 42.2 % 38.4-49.3 MCV (test code = 787-2) 94.6 fL 81.7-95.6 MCH (test code = 785-6) 32.7 pg 26.1-32.7 MCHC (test code = 786-4) 34.6 g/dL 31.2-35 RDW-SD (test code = 22338-8) 44.7 fL 38.5-51.6 RDW-CV (test code = 788-0) 13.0 % 12.1-15.4 PLT (test code = 777-3) See_Comment [Automated [employer]] The system which generated this result transmitted reference range: 150 - 328 10*3/?L. The reference range was not used to interpret this result as normal/abnormal. MPV (test code = 53673-9) 10.5 fL 9.8-13 NRBC/100 WBC (test code = 1099451711) See_Comment [Automated [employer] ssage] The system which generated this result transmitted reference range: 0.0 - 10.0 /100 WBCs. The reference range was not used to interpret this result as normal/abnormal. NRBC x10^3 (test code = 2792498312) <0.01 See_Comment [Automated me ssage] The system which generated this result transmitted reference range: 10*3/?L. The reference range was not used to interpret this result as normal/abnormal. GRAN MAT (NEUT) % (test code = 770-8) 47.4 % IMM GRAN % (test code = 8178476545) 0.20 % LYMPH % (test code = 736-9) 40.8 % MONO % (test code = 5905-5) 9.6 % EOS % (test code = 713-8) 1.3 % BASO % (test code = 706-2) 0.7 % GRAN MAT x10^3(ANC) (test code = 8560428663) 2.16 10*3/uL 1.99-6.95 IMM GRAN x10^3 (test code = 1060732308) <0.03 0-0.06 LYMPH x10^3 (test code = 731-0) 1.86 10*3/uL 1.09-3.23 MONO x10^3 (test code = 742-7) 0.44 10*3/uL 0.36-1.02 EOS x10^3 (test code = 711-2) 0.06 10*3/uL 0.06-0.53 BASO x10^3 (test code = 704-7) 0.03 10*3/uL 0.01-0.09 [facility] [id number] 20:16:13No acute abnormality. No diverticulitis or appendicitis. CT ABDOMEN PELVIS WO CONTRAST 08/26/2020 1:35 PM HISTORY: Diverticulitis, complication suspected COMPARISON: CT Abdomen pelvis 08/07/2018 TECHNIQUE: Axial images of the abdomen and pelvis were acquired afteradministration of intravenous contrast. Coronal and sagittalreconstructions were also created. FINDINGS: LOWER CHEST: Unchanged small leftlinear atelectasis. HEPATOBILIARY: No hepatomegaly. . No biliary ductal dilatation. No hyperdense stone. SPLEEN: No splenomegaly. PANCREAS: No ductal dilation, or solid masses. ADRENAL GLANDS: No adrenal nodules. KIDNEYS: No hydronephrosis or stone. No solid mass. GI TRACT: No dilation or wall thickening. Normal appendix. PERITONEUM AND RETROPERITONEUM: No free air or free fluid. LYMPH NODES: No lymphadenopathy is seen. PELVIS/BLADDER: Unremarkable. VESSELS: No aortic aneurysm or critical stenosis. . BONES AND SOFT TISSUES: No aggressive osseous lesion. [facility], Radiant Results Inft User - 2020 2:17 PM CSTCT ABDOMEN PELVIS WO CONTRAST 08/26/2020 1:35 PMHISTORY: Diverticulitis, complicationsuspected COMPARISON: CT Abdomen pelvis 08/07/2018TECHNIQUE: Axial images of the abdomen and pelvis were acquired afteradministration of intravenous contrast. Coronal and sagittalreconstructions were also created.FINDINGS:LOWER CHEST: Unchanged small left linear atelectasis.HEPATOBILIARY: No hepatomegaly. . No biliary ductal dilatation. No hyperdense stone.SPLEEN: No splenomegaly.PANCREAS: No ductal dilation, or solid masses.ADRENAL GLANDS: No adrenal nodules.KIDNEYS: No hydronephrosis or stone.No solid mass.GI TRACT: No dilation or wall thickening. Normal appendix.PERITONEUM AND RETROPERITONEUM: No free air or free fluid.LYMPH NODES: No lymphadenopathy is seen.PELVIS/BLADDER: Unremarkable.VESSELS: No aortic aneurysm or critical stenosis. .BONES AND SOFT TISSUES: No aggressive osseous lesion.IMPRESSIONNo acute abnormality. No diverticulitis or appendicitis.[facility] (NA, K, CL, CO2, GLUCOSE, BUN, CREATININE, CA) 2020-08-26 20:12:00* Test Item Value Reference Range Interpretation Comme nts NA (test code = 8401008898) 141 mmol/L 135-145 K (test code = 8440009030) 3.7 mmol/L 3.5-5 CL (test code = 2091294233) 102 mmol/L 98-108 CO2 TOTAL (test code = 2903917343) 30 mmol/L 23-31 AGAP (test code = 2746346281) 2-16 BUN (test code = 2908467124) 13 mg/dL 7-23 GLUCOSE (test code = 6013284028) 81 mg/dL 70-110 CREATININE (test code = 5884305770) 0.71 mg/dL 0.6-1.25 CALCIUM (test code = 2006973248) 9.6 mg/dL 8.6-10.6 eGFR Calculation (Non-) (test code = 1153896612) mL/min/1.73m2 eGFR Calculation () (test code = 2441610777) mL/min/1.73m2 LITZY (test code = LITZY) Association of Glomerular Filtration Rate (GFR) and Staging of Kidney Disease* + -+ + ---+| GFR (mL/min/1.73 m2) ?| With Kidney Damage ?| ?Without Kidney Damage+ -------+ ------+ ---------+| ?>90 ?| ?Stage one ?| ? Normal ?+ --+ -+ ----+| ?60-89 ?| ?Stage two ?| ? Decreased GFR ? + -+ + ---+| ?30-59 ?| ?Stage three ?| ? Stage three ? + -+ + ---+| ?15-29 ?| ?Stage four ? | ? Stage four ?+ --+ -+ ----+| ?<15 (or dialysis) ? ?| ?Stage five ? | ? Stage five ?+ --+ -+ ----+ *Each stage assumes the associated GFR level has been in effect for at least three months. ?Stages 1 to 5, with or without kidney disease, indicate chronic kidney disease. Notes: Determination of stages one and two (with eGFR >59mL/min/1.73 m2) requires estimation of kidney damage for at least three months as defined by structural or functional abnormalities of the kidney, manifested by either:Pathological abnormalities or Markers of kidney damage (including abnormalities in the composition of the blood or urine or abnormalities in imaging tests). [facility] (ALB, T.PRO, BILI T, BU/BC, ALT, AST, ALK PHOS)2020-08-26 20:12:00* Test Item Value Reference Range Interpretation Comme nts TOTAL BILI (test code = 9175436351) 0.8 mg/dL 0.1-1.1 BILI UNCON (test code = 7484841193) 0.7 mg/dL 0.1-1.1 BILI CONJ (test code = 0557192561) 0.0 mg/dL 0-0.3 T PROTEIN (test code = 9550929314) 8.6 g/dL 6.3-8.2 H ALBUMIN (test code = 4447862105) 5.0 g/dL 3.5-5 ALK PHOS (test code = 6127457561) 86 U/L 34-122 ALTv (test code = 1742-6) 23 U/L 5-50 AST(SGOT) (test code = 3292378759) 44 U/L 13-40 H Lab Interpretation (test cod e = 70081-9) Abnormal [facility] CenterLipase [id number] 20:12:00* Test Item Value Reference Range Interpretation Comme nts LIPASE (test code = 6405813328) 67 U/L 0-220 Lab Interpretation (test cod e = 40698-9) Normal [facility] CenterUrinalysis2021-[facility]-05 20:00:00* Test Item Value Reference Range Interpretation Comme nts APPEARANCE (test code = 1493836283) Clear Clear COLOR (test code = 3021007768) Yellow Yellow PH (test code = 7014128553) 4.8-8.0 SP GRAVITY (test code = 4712407445) 1.003-1.030 GLU U QUAL (test code = 3506638210) Normal Normal BLOOD (test code = 8891861561) Negative Negative KETONES (test code = 2531402245) Negative Negative PROTEIN (test code = 2887-8) Negative Negative UROBILIN (test code = 0792990539) Normal Normal BILIRUBIN (test code = 1089491894) Negative Negative NITRITE (test code = 9066326692) Negative Negative LEUK KENDELL (test code = 8097337556) Negative Negative RBC/HPF (test code = 0399807821) See_Comment [Automated [employer]] The system which generated this result transmitted reference range: 0 - 3 HPF. The reference range was not used to interpret this result as normal/abnormal. WBC/HPF (test code = 4904618428) See_Comment [Automated [employer]] The system which generated this result transmitted reference range: 0 - 5 HPF. The reference range was not used to interpret this result as normal/abnormal. BACTERIA (test code = 7010306941) Negative Negative MUCOUS (test code = 0688243352) Slight Negative LPF A Lab Interpretation (test code = 57163-9) [facility] [id number] 19:54:00* Test Item Value Reference Range Interpretation Comme nts WBC (test code = 6690-2) See_Comment [Automated messa ge] The system which generated this result transmitted reference range: 4.20 - 10.70 10*3/?L. The reference range was not used to interpret this result as normal/abnormal. RBC (test code = 789-8) See_Comment [Automated messa ge] The system which generated this result transmitted reference range: 4.26 - 5.52 10*6/?L. The reference range was not used to interpret this result as normal/abnormal. HGB (test code = 718-7) 16.0 g/dL 12.2-16.4 HCT (test code = 4544-3) 46.6 % 38.4-49.3 MCV (test code = 787-2) 94.7 fL 81.7-95.6 MCH (test code = 785-6) 32.5 pg 26.1-32.7 MCHC (test code = 786-4) 34.3 g/dL 31.2-35 RDW-SD (test code = 03582-7) 46.3 fL 38.5-51.6 RDW-CV (test code = 788-0) 13.2 % 12.1-15.4 PLT (test code = 777-3) See_Comment [Automated messa ge] The system which generated this result transmitted reference range: 150 - 328 10*3/?L. The reference range was not used to interpret this result as normal/abnormal. MPV (test code = 56716-8) 11.1 fL 9.8-13 NRBC/100 WBC (test code = 3900427704) See_Comment [Automated [employer] ssage] The system which generated this result transmitted reference range: 0.0 - 10.0 /100 WBCs. The reference range was not used to interpret this result as normal/abnormal. NRBC x10^3 (test code = 3799007594) <0.01 See_Comment [Automated messa ge] The system which generated this result transmitted reference range: 10*3/?L. The reference range was not used to interpret this result as normal/abnormal. GRAN MAT (NEUT) % (test code = 770-8) 51.0 % IMM GRAN % (test code = 5807228889) 0.00 % LYMPH % (test code = 736-9) 40.1 % MONO % (test code = 5905-5) 6.2 % EOS % (test code = 713-8) 2.0 % BASO % (test code = 706-2) 0.7 % GRAN MAT x10^3(ANC) (test code = 4716960903) 2.30 10*3/uL 1.99-6.95 IMM GRAN x10^3 (test code = 1568983451) <0.03 0-0.06 LYMPH x10^3 (test code = 731-0) 1.81 10*3/uL 1.09-3.23 MONO x10^3 (test code = 742-7) 0.28 10*3/uL 0.36-1.02 L EOS x10^3 (test code = 711-2) 0.09 10*3/uL 0.06-0.53 BASO x10^3 (test code = 704-7) 0.03 10*3/uL 0.01-0.09 Lab Interpretation (test code = 97387-6) [facility] (NA, K, CL, CO2, GLUCOSE, BUN, CREATININE, CA)2020-07-16 16:25:00* Test Item Value Reference Range Interpretation Comme nts NA (test code = 2442798912) 139 mmol/L 135-145 K (test code = 1737734284) 4.1 mmol/L 3.5-5 CL (test code = 0403051086) 102 mmol/L 98-108 CO2 TOTAL (test code = 0578556036) 30 mmol/L 23-31 AGAP (test code = 8433876740) 2-16 BUN (test code = 9741145900) 16 mg/dL 7-23 GLUCOSE (test code = 6308340424) 115 mg/dL 70-110 H CREATININE (test code = 3533647676) 0.74 mg/dL 0.6-1.25 CALCIUM (test code = 4482116372) 9.5 mg/dL 8.6-10.6 eGFR Calculation (Non-) (test code = 5884013619) mL/min/1.73m2 eGFR Calculation () (test code = 6409809787) mL/min/1.73m2 LITZY (test code = LITZY) Association of Glomerular Filtration Rate (GFR) and Staging of Kidney Disease* + --+ --+ ------+| GFR (mL/min/1.73 m2) ?| With Kidney Damage ?| ?Without Kidney Damage+ --------+ --------+ +| ?>90 ?| ?Stage one ?| ? Normal ?+ ---+ ---+ -------+| ?60-89 ?| ?Stage two ?| ? Decreased GFR ? + --+ --+ ------+| ?30-59 ?| ?Stage three ?| ? Stage three ? + --+ --+ ------+| ?15-29 ?| ?Stage four ? | ? Stage four ?+ ---+ ---+ -------+| ?<15 (or dialysis) ? ?| ?Stage five ? | ? Stage five ?+ ---+ ---+ -------+ *Each stage assumes the associated GFR level has been in effect for at least three months. ?Stages 1 to 5, with or without kidney disease, indicate chronic kidney disease. Notes: Determination of stages one and two (with eGFR >59mL/min/1.73 m2) requires estimation of kidney damage for at least three months as defined by structural or functional abnormalities of the kidney, manifested by either:Pathological abnormalities or Markers of kidney damage (including abnormalities in the composition of the blood or urine or abnormalities in imaging tests). Lab Interpretation (test code = 25093-6) [facility]normal [facility] (ALB, T.PRO, BILI T, BU/BC, ALT, AST, ALK PHOS)2020-07-16 16:25:00* Test Item Value Reference Range Interpretation Comme nts TOTAL BILI (test code = 9169720098) 0.4 mg/dL 0.1-1.1 BILI UNCON (test code = 4216224246) 0.3 mg/dL 0.1-1.1 BILI CONJ (test code = 3261730913) 0.0 mg/dL 0-0.3 T PROTEIN (test code = 8335112354) 7.0 g/dL 6.3-8.2 ALBUMIN (test code = 8711220939) 4.2 g/dL 3.5-5 ALK PHOS (test code = 4184553850) 112 U/L 34-122 ALTv (test code = 1742-6) 23 U/L 5-50 AST(SGOT) (test code = 2238456662) 34 U/L 13-40 Lab Interpretation (test cod e = 79839-7) Normal [facility]2020-12-26 16:25:00* Test Item Value Reference Range Interpretation Comme nts MAGNESIUM (test code = 8323854180) 2.2 mg/dL 1.7-2.4 Lab Interpretation (test cod e = 29720-9) Normal [facility] CenterCREATINE [id number] 16:25:00* Test Item Value Reference Range Interpretation Comme nts CK (test code = 1794887897) 123 U/L 33-194 Lab Interpretation (test cod e = 93745-4) Normal [facility] with Kxlhgpsgvhdo0731-52-74 16:13:00* Test Item Value Reference Range Interpretation Comme nts WBC (test code = 6690-2) See_Comment [Automated [employer]] The system which generated this result transmitted reference range: 4.20 - 10.70 10*3/?L. The reference range was not used to interpret this result as normal/abnormal. RBC (test code = 789-8) See_Comment [Automated [employer]] The system which generated this result transmitted reference range: 4.26 - 5.52 10*6/?L. The reference range was not used to interpret this result as normal/abnormal. HGB (test code = 718-7) 14.3 g/dL 12.2-16.4 HCT (test code = 4544-3) 42.8 % 38.4-49.3 MCV (test code = 787-2) 96.0 fL 81.7-95.6 H MCH (test code = 785-6) 32.1 pg 26.1-32.7 MCHC (test code = 786-4) 33.4 g/dL 31.2-35 RDW-SD (test code = 22159-3) 46.4 fL 38.5-51.6 RDW-CV (test code = 788-0) 13.1 % 12.1-15.4 PLT (test code = 777-3) See_Comment [Automated [employer]] The system which generated this result transmitted reference range: 150 - 328 10*3/?L. The reference range was not used to interpret this result as normal/abnormal. MPV (test code = 23768-0) 10.8 fL 9.8-13 NRBC/100 WBC (test code = 7182921007) See_Comment [Automated [employer] ssage] The system which generated this result transmitted reference range: 0.0 - 10.0 /100 WBCs. The reference range was not used to interpret this result as normal/abnormal. NRBC x10^3 (test code = 5853229063) <0.01 See_Comment [Automated [employer]] The system which generated this result transmitted reference range: 10*3/?L. The reference range was not used to interpret this result as normal/abnormal. GRAN MAT (NEUT) % (test code = 770-8) 66.2 % IMM GRAN % (test code = 3647424110) 0.60 % LYMPH % (test code = 736-9) 23.8 % MONO % (test code = 5905-5) 9.0 % EOS % (test code = 713-8) 0.1 % BASO % (test code = 706-2) 0.3 % GRAN MAT x10^3(ANC) (test code = 4278126987) 4.57 10*3/uL 1.99-6.95 IMM GRAN x10^3 (test code = 9260161325) 0.04 10*3/uL 0-0.06 LYMPH x10^3 (test code = 731-0) 1.64 10*3/uL 1.09-3.23 MONO x10^3 (test code = 742-7) 0.62 10*3/uL 0.36-1.02 EOS x10^3 (test code = 711-2) <0.03 0.06-0.53 L BASO x10^3 (test code = 704-7) <0.03 0.01-0.09 Lab Interpretation (test code = 35685-0) [facility]normal [facility]IS2020-12-22 00:03:00* Test Item Value Reference Range Interpretation Comme nts APPEARANCE (test code = 1471724419) Clear Clear COLOR (test code = 5958450054) Yellow Yellow PH (test code = 3983497703) 4.8-8.0 SP GRAVITY (test code = 4477810091) 1.003-1.030 GLU U QUAL (test code = 1341844470) Normal Normal BLOOD (test code = 9567727993) Negative Negative KETONES (test code = 7598967031) Negative Negative PROTEIN (test code = 2887-8) Negative Negative UROBILIN (test code = 8021004262) Normal Normal BILIRUBIN (test code = 5492827173) Negative Negative NITRITE (test code = 1955959765) Negative Negative LEUK KENDELL (test code = 7575244241) Negative Negative RBC/HPF (test code = 1271708470) See_Comment [Automated messa ge] The system which generated this result transmitted reference range: 0 - 3 HPF. The reference range was not used to interpret this result as normal/abnormal. WBC/HPF (test code = 6419981065) See_Comment [Automated messa ge] The system which generated this result transmitted reference range: 0 - 5 HPF. The reference range was not used to interpret this result as normal/abnormal. BACTERIA (test code = 0192573282) Few Negative A SQ EPITH (test code = 9846646409) <1 HPF TRANS EPI (test code = 0668463498) <1 See_Comment [Automated messa ge] The system which generated this result transmitted reference range: <=1 HPF. The reference range was not used to interpret this result as normal/abnormal. Lab Interpretation (test code = 53135-7) [facility]normal [facility] CenterCOVID[facility] (ID NOW RAPID TESTING)2020-06-26 20:08:00* Test Item Value Reference Range Interpretation Comme nts SARS-CoV-2 Rapid ID NOW (test code = 08468-2) Not Detected Not Detected LITZY (test code = LITZY) ID NOW COVID-19 As say is an isothermal nucleic acid amplification test intended for the qualitative detection of nucleic acid from SARS-CoV-2 viral RNA in nasopharyngeal (WEB PRESS OPERATOR ASSISTANT) specimens. It is used under Emergency Use Authorization (EUA) by FDA. The limit of detection (LOD) of the assay is 125 Genome Equivalents/mL. A positive result is indicative of the presence of SARS-CoV-2 RNA. ?Clinical correlation with patient history and other diagnostic information is necessary to determine patient infection status. A negative (Not Detected) result does not preclude SARS-CoV-2 infection. In patients with clinical symptoms and other tests that are consistent with SARS-CoV-2 infection, negative results should be treated as presumptive negative and a new specimen should be tested with alternative PCR molecular test. Invalid: Please collect a new specimen for repeat patient testing if clinically indicated. Lab Interpretation (test code = 70186-4) Normal [facility] CenterXR [facility] 1 VW [id number] 18:30:24No acute cardiopulmonary abnormality, specifically no detectableradiographic findings to suggest COVID-19 pneumonia. Disclaimer: Generally, the findings on chest imaging in COVID-19 are notspecific, and overlap with other infections, including influenza, H1N1,SARS and MERS.According to the Centers for Disease Control (CDC) and recent statement ofthe [employer], viral testing remains the only specificmethod of diagnosis. Confirmation with the viral test is required, even ifradiologic findings are suggestive of COVID-[address] Preliminary Report Dictated by Resident: Roger Lombardi MD., have reviewed this study and agree with theabove report.XR CHEST 1 VW COVID CLINICAL INDICATION: chest pain COMPARISON: 08/21/2019 TECHNIQUE: AP radiographs of the chest were performed. FINDINGS: The lungs are clear. No focal consolidations, pleural effusion orpneumothorax. The cardiomediastinal silhouette is normal. No acute bony abnormality. [facility], Radiant Results Inft User - 01/28/2020 1:31 PM CDTXR CHEST 1 VW COVIDCLINICAL INDICATION: chest pain NEW RISON: 08/21/2019TECHNIQUE: AP radiographs of the chest were performed.FINDINGS:The lungs are clear.No focal consolidations, pleural effusion orpneumothorax. The cardiomediastinal silhouette is normal.No acute bony abnormality.IMPRESSIONNo acute cardiopulmonary abnormality, specifically no detectableradiographic findings to suggest COVID-19 pneumonia.Disclaimer: Generally, the findings on chest imaging in COVID-19 are notspecific, and overlap with other infections, including influenza, H1N1,SARS and MERS.According to the Centers for Disease Control (CDC) and recent statement ofthe [employer], viral testing remains the only specificmethod of diagnosis. Confirmation with the viral test is required, even ifradiologic findings are suggestive of COVID-[address]. Preliminary Report Dictated by Resident: Roger Baker MD., have reviewed this study and agree with theabove report.[facility] CenterTroponin [id number] 18:30:00* Test Item Value Reference Range Interpretation Comme nts TROPONIN I (test code = 1745098909) <0.012 See_Comment [Automated message] The system which generated this result transmitted reference range: <=0.034 ng/mL. The reference range was not used to interpret this result as normal/abnormal. LITZY (test code = LITZY) Equal or Less than 0.034 ng/ml---Normal ?Note: Cardiac troponin begins to rise 3-4 hours after the onset of ischemia. Repeat in 4-6 hours if the sample was drawn within 3-4 hours of the onset of the symptom and found normal. Between 0.035 and 0.120 ng/mL--- Borderline. Questionable myocardial injury or necrosis ? ?Note: Serial measurement may be necessary to confirm or exclude the diagnosis of myocardial injury or necrosis; Clinical correlation (symptoms, EKGs, imaging studies, and others) required; Repeat in 4-6 hours if clinically indicated. ? Equal or Higher than 0.121 ng/mL---Abnormal. Myocardial Injury or Necrosis Likely ? Biotin has been reported to cause a negative bias, interpret results relative to patient's use of biotin. ? Lab Interpretation (test code = 87676-4) Normal [facility] CenterN-TERMINAL [id number] 18:27:00* Test Item Value Reference Range Interpretation Comme nts NT-proBNP (test code = 3188197405) 27 pg/mL See_Comment [Automated message] The system which generated this result transmitted reference range: <=125. The reference range was not used to interpret this result as normal/abnormal. LITZY (test code = LITZY) Biotin has been reported to cause a negative bias, interpret results relative to patient's use of biotin. Lab Interpretation (test code = 32610-9) Normal [facility] (ID NOW RAPID TESTING)2020-01-28 18:23:00* Test Item Value Reference Range Interpretation Comme nts SARS-CoV-2 Rapid ID NOW (test code = 67358-7) Not Detected Not Detected LITZY (test code = LITZY) ID NOW COVID-19 As say is an isothermal nucleic acid amplification test intended for the qualitative detection of nucleic acid from SARS-CoV-2 viral RNA in nasopharyngeal (WEB PRESS OPERATOR ASSISTANT) specimens. It is used under Emergency Use Authorization (EUA) by FDA. The limit of detection (LOD) of the assay is 125 Genome Equivalents/mL. A positive result is indicative of the presence of SARS-CoV-2 RNA. ?Clinical correlation with patient history and other diagnostic information is necessary to determine patient infection status. A negative (Not Detected) result does not preclude SARS-CoV-2 infection. In patients with clinical symptoms and other tests that are consistent with SARS-CoV-2 infection, negative results should be treated as presumptive negative and a new specimen should be tested with alternative PCR molecular test. Invalid: Please collect a new specimen for repeat patient testing if clinically indicated. Lab Interpretation (test code = 26300-5) Normal [facility] WITH [id number] 18:22:00* Test Item Value Reference Range Interpretation Comme nts WBC (test code = 6690-2) See_Comment [Automated [employer]] The system which generated this result transmitted reference range: 4.20 - 10.70 10*3/?L. The reference range was not used to interpret this result as normal/abnormal. RBC (test code = 789-8) See_Comment [Automated [employer]] The system which generated this result transmitted reference range: 4.26 - 5.52 10*6/?L. The reference range was not used to interpret this result as normal/abnormal. HGB (test code = 718-7) 14.4 g/dL 12.2-16.4 HCT (test code = 4544-3) 42.8 % 38.4-49.3 MCV (test code = 787-2) 95.7 fL 81.7-95.6 H MCH (test code = 785-6) 32.2 pg 26.1-32.7 MCHC (test code = 786-4) 33.6 g/dL 31.2-35 RDW-SD (test code = 97134-0) 47.2 fL 38.5-51.6 RDW-CV (test code = 788-0) 13.2 % 12.1-15.4 PLT (test code = 777-3) See_Comment [Automated messa ge] The system which generated this result transmitted reference range: 150 - 328 10*3/?L. The reference range was not used to interpret this result as normal/abnormal. MPV (test code = 80134-5) 11.0 fL 9.8-13 NRBC/100 WBC (test code = 1841615322) See_Comment [Automated [employer] ssage] The system which generated this result transmitted reference range: 0.0 - 10.0 /100 WBCs. The reference range was not used to interpret this result as normal/abnormal. NRBC x10^3 (test code = 5597164808) <0.01 See_Comment [Automated messa ge] The system which generated this result transmitted reference range: 10*3/?L. The reference range was not used to interpret this result as normal/abnormal. GRAN MAT (NEUT) % (test code = 770-8) 46.4 % IMM GRAN % (test code = 1497799621) 0.60 % LYMPH % (test code = 736-9) 39.6 % MONO % (test code = 5905-5) 10.2 % EOS % (test code = 713-8) 2.4 % BASO % (test code = 706-2) 0.8 % GRAN MAT x10^3(ANC) (test code = 6231885855) 2.33 10*3/uL 1.99-6.95 IMM GRAN x10^3 (test code = 4653280603) 0.03 10*3/uL 0-0.06 LYMPH x10^3 (test code = 731-0) 1.99 10*3/uL 1.09-3.23 MONO x10^3 (test code = 742-7) 0.51 10*3/uL 0.36-1.02 EOS x10^3 (test code = 711-2) 0.12 10*3/uL 0.06-0.53 BASO x10^3 (test code = 704-7) 0.04 10*3/uL 0.01-0.09 Lab Interpretation (test code = 82102-1) [facility] (NA, K, CL, CO2, GLUCOSE, BUN, CREATININE, CA)2020-01-28 18:19:00* Test Item Value Reference Range Interpretation Comme nts NA (test code = 8978029182) 140 mmol/L 135-145 K (test code = 8068495801) 4.0 mmol/L 3.5-5 CL (test code = 6286657881) 105 mmol/L 98-108 CO2 TOTAL (test code = 9895912472) 29 mmol/L 23-31 AGAP (test code = 0946795185) 2-16 BUN (test code = 8884391184) 14 mg/dL 7-23 GLUCOSE (test code = 6807892072) 111 mg/dL 70-110 H CREATININE (test code = 6514497929) 0.80 mg/dL 0.6-1.25 CALCIUM (test code = 0019795833) 9.5 mg/dL 8.6-10.6 eGFR Calculation (Non-) (test code = 5770205583) mL/min/1.73m2 eGFR Calculation () (test code = 0936762933) mL/min/1.73m2 LITZY (test code = LITZY) Association of Glomerular Filtration Rate (GFR) and Staging of Kidney Disease* + --+ --+ ------+| GFR (mL/min/1.73 m2) ?| With Kidney Damage ?| ?Without Kidney Damage+ --------+ --------+ +| ?>90 ?| ?Stage one ?| ? Normal ?+ ---+ ---+ -------+| ?60-89 ?| ?Stage two ?| ? Decreased GFR ? + --+ --+ ------+| ?30-59 ?| ?Stage three ?| ? Stage three ? + --+ --+ ------+| ?15-29 ?| ?Stage four ? | ? Stage four ?+ ---+ ---+ -------+| ?<15 (or dialysis) ? ?| ?Stage five ? | ? Stage five ?+ ---+ ---+ -------+ *Each stage assumes the associated GFR level has been in effect for at least three months. ?Stages 1 to 5, with or without kidney disease, indicate chronic kidney disease. Notes: Determination of stages one and two (with eGFR >59mL/min/1.73 m2) requires estimation of kidney damage for at least three months as defined by structural or functional abnormalities of the kidney, manifested by either:Pathological abnormalities or Markers of kidney damage (including abnormalities in the composition of the blood or urine or abnormalities in imaging tests). Lab Interpretation (test code = 31969-7) [facility]normal [facility] (ALB, T.PRO, BILI T, BU/BC, ALT, AST, ALK PHOS)2020-01-28 18:19:00* Test Item Value Reference Range Interpretation Comme nts TOTAL BILI (test code = 2893485296) 0.4 mg/dL 0.1-1.1 BILI UNCON (test code = 5449269411) 0.5 mg/dL 0.1-1.1 BILI CONJ (test code = 4676556642) 0.0 mg/dL 0-0.3 T PROTEIN (test code = 4582888814) 7.6 g/dL 6.3-8.2 ALBUMIN (test code = 2466017930) 4.3 g/dL 3.5-5 ALK PHOS (test code = 4331493098) 87 U/L 34-122 ALTv (test code = 1742-6) 20 U/L 5-50 AST(SGOT) (test code = 9424733428) 36 U/L 13-40 Lab Interpretation (test cod e = 07227-6) Normal [facility] CenterLipase [id number] 18:19:00* Test Item Value Reference Range Interpretation Comme nts LIPASE (test code = 7445650657) 110 U/L 0-220 Lab Interpretation (test cod e = 95687-4) Normal [facility] CenteraPTT2020-07-09 18:09:00* Test Item Value Reference Range Interpretation Comme nts APTT Patient (test code = 3173-2) See_Comment [Automated message] The system which generated this result transmitted reference range: 23 - 38 Seconds. The reference range was not used to interpret this result as normal/abnormal. LITZY (test code = LITZY) The [facility] patient population mean normal value for aPTT is 30 seconds. Lab Interpretation (test code = 10645-9) Normal [facility] CenterProthrombin Time (PT) / [id number] 18:07:00 * Test Item Value Reference Range Interpretation Comme nts PROTIME PATIENT (test code = 5964-2) See_Comment H [Automated messa ge] The system which generated this result transmitted reference range: 12.0 - 14.7 Seconds. The reference range was not used to interpret this result as normal/abnormal. INR (test code = 6301-6) Normal INR <1.1; Warfarin Therapeutic range 2.0 to 3.0 or 2.5 to 3.5, depending upon the indications. Lab Interpretation (test code = 51674-7) Abnormal [facility] CenterUS TESTICULAR [id number] 02:04:04 Sonographic findings consistent with left epidermidis with associatedleft-sided small volume hydrocele. Bilateral varicoceles. Normal appearing testicles.? I, Kellie?MD Sigifredo., have reviewed this study and agree with the abovereport.* * * * * * * * ORIGINAL REPORT * * * * * * * * HISTORY: left testicle pain?. SCROTAL ULTRASOUND FINDINGS: The testicles are normal in size, shape and echotexture without a focallesion. The right testicle measures 4.4 x 2.3 x 2.8 cm and the lefttesticle measures 3.7 x 2.4 x 2.7 cm. The testicle demonstrates symmetricflow on color Doppler. The left epididymal head is slightly enlarged, measures 1.2 x 0.8 x 0.7 cm,and demonstrates heterogeneous echotexture and incre ased flow on colorDoppler. The right epidermal head is normal in size, shape and echotexturewithouta focal lesion, measures 1 x 1.3 x 1.2 cm. Small volume of intrascrotal free fluid is seen on the left. No righthydrocele. Multiple serpentine tubular structures are seen along the pampiniformplexus,which demonstrate increase flow on color Doppler with Valsalvamaneuver. [facility], Radiant Results Inft User - 02/16/2019 9:04 PM CDT* * * * * * * * ORIGINAL REPORT * * * * * * * *HISTORY: left testicle pain .SCROTAL ULTRASOUNDFINDINGS: The testicles are normal in size, shape and echotexture without a focallesion. The right testicle measures 4.4 x 2.3 x 2.8 cm and the lefttesticle measures 3.7 x 2.4 x 2.7 cm. The testicle demonstrates symmetricflow on color Doppler.The left epididymal head is slightly enlarged, measures 1.2 x 0.8 x 0.7 cm,and demonstrates heterogeneous echotexture and increased flow on colorDoppler. The right epidermal head is normal in size, shape and echotexturewithout a focal lesion, measures 1 x 1.3 x 1.2 cm.Small volume of intrascrotal free fluid is seen on the left. No righthydrocele.Multiple serpentine tubular structures are seen along the pampiniformplexus, which demonstrate increase flow on color Doppler with Valsalvamaneuver.IMPRESSIONSonographic findings consistent with left epidermidis with associatedleft-sided small volume hydrocele.Bilateral varicoceles.Normal appearing testicles. I, Kellie Mei MD., have reviewed this study and agree with the abovereport.[facility]. METABOLIC PANEL (40778)2019-02-17 01:12:00* Test Item Value Reference Range Interpretation Comme nts NA (test code = 9382133722) 143 mmol/L 135-145 K (test code = 1818938702) 4.5 mmol/L 3.5-5 CL (test code = 4915582006) 103 mmol/L 98-108 CO2 TOTAL (test code = 4718462200) 29 mmol/L 23-31 AGAP (test code = 8752186631) 2-16 BUN (test code = 9788729364) 14 mg/dL 7-23 GLUCOSE (test code = 7444252648) 86 mg/dL 70-110 CREATININE (test code = 1601471956) 0.79 mg/dL 0.6-1.25 TOTAL BILI (test code = 0849523717) 0.5 mg/dL 0.1-1.1 CALCIUM (test code = 2230211139) 10.0 mg/dL 8.6-10.6 T PROTEIN (test code = 5413769962) 8.7 g/dL 6.3-8.2 H ALBUMIN (test code = 4531037037) 5.1 g/dL 3.5-5 H ALK PHOS (test code = 3326813291) 110 U/L 34-122 ALT(SGPT) (test code = 8613684297) 31 U/L 9-51 AST(SGOT) (test code = 4424054196) 49 U/L 13-40 H eGFR Calculation (Non-) (test code = 0333700043) mL/min/1.73m2 eGFR Calculation () (test code = 3650693495) mL/min/1.73m2 LITZY (test code = LITZY) Association of Glomerular Filtration Rate (GFR) and Staging of Kidney Disease*+ + + +| GFR (mL/min/1.73 m2)?| With Kidney Damage?|?Without Kidney Damage+ --------+ --------+ +|?>90?|?S tage one?|? Normal?+ ---------+ ---------+ +|?60-89? |?Stage two?|? Decreased GFR? + --+ --+ ------+|?30-59?|?Stage three?|? Stage three? + --+ --+ ------+|?15-29?|?Stage four? |? Stage four?+ -------+ -------+ +|?<15 (or dialysis)?|?Stage five? |? Stage five?+ -------+ -------+ +*Each stage assumes the associated GFR level has been in effect for at least three months.?Stages 1 to 5, with or without kidney disease, indicate chronic kidney disease.Notes: Determination of stages one and two (with eGFR >59mL/min/1.73 m2) requires estimation of kidney damage for at least three months as defined by structural or functional abnormalities of the kidney, manifested by either:Pathological abnormalities or Markers of kidney damage (including abnormalities in the composition of the blood or urine or abnormalities in imaging tests). Lab Interpretation (test code = 31022-5) Abnormal [facility] WITH [id number] 00:39:00* Test Item Value Reference Range Interpretation Comme nts WBC (test code = 6690-2) See_Comment H [[employer]] The system which generated this result transmitted reference range: 4.20 - 10.70 10*3/?L. The reference range was not used to interpret this result as normal/abnormal. RBC (test code = 789-8) See_Comment [Automated [employer]] The system which generated this result transmitted reference range: 4.26 - 5.52 10*6/?L. The reference range was not used to interpret this result as normal/abnormal. HGB (test code = 718-7) 15.5 g/dL 12.2-16.4 HCT (test code = 4544-3) 46.5 % 38.4-49.3 MCV (test code = 787-2) 95.5 fL 81.7-95.6 MCH (test code = 785-6) 31.8 pg 26.1-32.7 MCHC (test code = 786-4) 33.3 g/dL 31.2-35 RDW-SD (test code = 26353-0) 46.9 fL 38.5-51.6 RDW-CV (test code = 788-0) 13.3 % 12.1-15.4 PLT (test code = 777-3) See_Comment [[employer]ated [employer]] The system which generated this result transmitted reference range: 150 - 328 10*3/?L. The reference range was not used to interpret this result as normal/abnormal. MPV (test code = 87183-6) 10.6 fL 9.8-13 NRBC/100 WBC (test code = 1092899361) See_Comment [Automated [employer]] The system which generated this result transmitted reference range: 0.0 - 10.0 /100 WBCs. The reference range was not used to interpret this result as normal/abnormal. NRBC x10^3 (test code = 4337773084) <0.01 See_Comment [[employer]ated [employer]] The system which generated this result transmitted reference range: 10*3/?L. The reference range was not used to interpret this result as normal/abnormal. GRAN MAT (NEUT) % (test code = 770-8) 72.4 % IMM GRAN % (test code = 4485431458) 0.30 % LYMPH % (test code = 736-9) 19.1 % MONO % (test code = 5905-5) 7.4 % EOS % (test code = 713-8) 0.4 % BASO % (test code = 706-2) 0.4 % GRAN MAT x10^3(ANC) (test code = 3358744654) 8.37 10*3/uL 1.99-6.95 H IMM GRAN x10^3 (test code = 5824273968) 0.04 10*3/uL 0-0.06 LYMPH x10^3 (test code = 731-0) 2.21 10*3/uL 1.09-3.23 MONO x10^3 (test code = 742-7) 0.86 10*3/uL 0.36-1.02 EOS x10^3 (test code = 711-2) 0.05 10*3/uL 0.06-0.53 L BASO x10^3 (test code = 704-7) 0.05 10*3/uL 0.01-0.09 Lab Interpretation (test code = 33942-7) [facility] Test Item Value Reference Range Interpretation Comme nts APPEARANCE (test code = 1819390109) Clear Clear COLOR (test code = 0432150145) Yellow Yellow PH (test code = 1497872357) 4.8-8.0 SP GRAVITY (test code = 7364283417) <=1.005 1.003-1.030 GLU U QUAL (test code = 9958149378) Negative Negative BLOOD (test code = 7447944671) Negative Negative KETONES (test code = 9885825005) Negative Negative PROTEIN (test code = 2887-8) Negative Negative UROBILIN (test code = 4887997900) 0.2 mg/dL See_Comment [[employer]] The system which generated this result transmitted reference range: 0-1.0 mg/dL. The reference range was not used to interpret this result as normal/abnormal. BILIRUBIN (test code = 9382092010) Negative Negative NITRITE (test code = 8789055861) Negative Negative LEUK KENDELL (test code = 5885041666) Trace Negative A RBC/HPF (test code = 2396727705) See_Comment [[employer]] The system which generated this result transmitted reference range: 0 - 3 HPF. The reference range was not used to interpret this result as normal/abnormal. WBC/HPF (test code = 5698118770) See_Comment [[employer]ated [employer]] The system which generated this result transmitted reference range: 0 - 5 HPF. The reference range was not used to interpret this result as normal/abnormal. BACTERIA (test code = 2929089050) Few Negative A MUCOUS (test code = 0232067722) Slight Negative LPF A SQ EPITH (test code = 8647848220) HPF Lab Interpretation (test code = 30111-6) Abnormal [facility] Notes Date/Time Note Provider Source 2024-06-14 01:29:17 Pt given printed and verbal discharge instructions regarding bacteriuria Prescriptions provided: Discussed antibiotic therapy and to take until all completed unless adverse reaction occurs - if occurs, discontinue medication and follow up with pcp/seek medical attention Pt verbalized understanding of instructions, pt awake alert oriented, resp reg unlabored, skin w/d, color appropriate for race, moves all ext well,pt encouraged to follow up with pcp Advised to seek medical attention for new/prolonged/worsening of symptoms No adverse reaction to meds given in ER noted upon discharge Awake, alert oriented, resp reg unlabored, skin w/d, pt leaving amb with steady gait, in no apparent distress [facility] Trini Garcia RN [facility] 2024-06-13 23:07:39 Pt still unable to provide urine sample. Another cup of water provided to pt. [facility] 2024-06-13 22:09:46 Pt arrives ambulatory to ED c/o burning w/ urination also reports coughing and feeling like he may have a fever. ANA Stewart RN [facility] 2024-06-02 09:54:24 Patient given discharge instructions with readback, discussed prescriptions and follow up care. IV removed and intact. Steady gait with NAD noted. [facility]OPPER Dayo Schmitt RN [facility] 2024-06-02 06:47:00 Tingling/pain to mello lower extremities to years. Pain worsened today. 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 He reports that he symptoms started about 1 hour prior to arrival. When chart reviewed in [facility] he has actually been seen here with his complaint numerous times in the past. No weakness to his arms or legs. No change in his speech. No blurry vision. No headache. No injury or trauma. No nausea, vomiting or diarrhea. No history of diabetes. Here for evaluation. Past Medical History/Immunizations: Past Medical History: Diagnosis Date Borderline diabetes Tetanus received in last 5 years: Unknown Childhood immunizations: Up-to-date Allergies: Allergies Allergen Reactions Shellfish [Iodine And Iodide Containing Products] Anaphylaxis Milk Swelling Pepper (Genus Capsicum) Itching Seafood/Fish Swelling Past Social History: Substance & Sexual Activity No substance use or sexual activity history on file. Past Surgical History: History reviewed. No pertinent surgical history. Review of Systems: Review of Systems Constitutional: Negative for chills. Respiratory: Negative for cough. Cardiovascular: Negative for chest pain. Gastrointestinal: Negative for abdominal pain. Genitourinary: Negative for dysuria. Musculoskeletal: Negative for arthralgias and neck pain. Skin: Negative for wound. Neurological: Positive for numbness. Psychiatric/Behavioral: Negative for agitation. Endocrine: Negative for goiter. Physical Exam: ED Triage Vitals [06/02/24 0648] Weight 86.2 kg (190 lb) Actual or estimated Estimated by patient/family report Height 1.829 m (6') BP (!) 143/86 Pulse 61 Resp 18 Temp 36.5 ?C (97.7 ?F) Temp source Oral SpO2 100 % Measured on Room air Physical Exam Vitals and nursing note reviewed. Constitutional: Appearance: Normal appearance. He is normal weight. HENT: Head: Normocephalic and atraumatic. Cardiovascular: Rate and Rhythm: Normal rate and regular rhythm. Pulmonary: Effort: Pulmonary effort is normal. No respiratory distress. Breath sounds: No stridor. No wheezing or rhonchi. Abdominal: General: There is no distension. Palpations: Abdomen is soft. There is no mass. Tenderness: There is no abdominal tenderness. Hernia: No hernia is present. Musculoskeletal: General: Normal range of motion. Cervical back: Normal range of motion and neck supple. Skin: General: Skin is warm and dry. Neurological: Mental Status: He is alert and oriented to person, place, and time. Comments: Speech is clear. No facial symmetry. Handgrip right equals left. Muscle strength is 5/5 to upper extremities and lower extremities bilaterally. Radiology: CT HEAD WO CONTRAST Final Result EXAM: CT HEAD WO CONTRAST HISTORY: 63 years-old Male; Provided indication: Transient ischemic attack (TIA) leg numbness . TECHNIQUE: Axial CT of the head was performed and reconstructed at 5 mm intervals. Coronal and sagittal reformatted images were generated. COMPARISON: None FINDINGS: The ventricles and cerebral sulci are normal in caliber and configuration. No midline shift or pathological extra-axial fluid collection is present. The basal cisterns are unremarkable. No acute intracranial hemorrhage or significant mass effect is visualized. No parenchymal attenuation abnormality is seen. The shepherd-white matter differentiation is preserved. The mastoid air cells and visualized paranasal air sinuses are clear. The calvarium and central skull base are unremarkable. IMPRESSION No acute intracranial abnormality. Preliminary Report Dictated by Resident: Arthur Lombardi I, Cole Zabala MD., have reviewed this study and agree with the above report. Lab Results: Lab Results URINALYSIS - Abnormal Result Value Ref Range APPEARANCE Slightly Cloudy (*) Clear COLOR Yellow Yellow PH 7.0 4.8 - 8.0 SP GRAVITY 1.013 1.003 - 1.030 GLU U QUAL Normal Normal BLOOD Negative Negative KETONES Negative Negative PROTEIN Negative Negative UROBILIN 4.0 mg/dL (*) Normal BILIRUBIN Negative Negative NITRITE Negative Negative LEUK KENDELL Negative Negative RBC/HPF 1 0 - 3 HPF WBC/HPF 1 0 - 5 HPF BACTERIA Negative Negative MUCOUS Slight (*) Negative LPF AMORPHOUS Rare Rare HPF SQ EPITH <1 HPF MAGNESIUM - Normal MAGNESIUM 2.1 1.7 - 2.4 mg/dL CBC WITH DIFF WBC 4.79 4.20 - 10.70 10*3/?L RBC 4.50 4.26 - 5.52 10*6/?L HGB 14.4 12.2 - 16.4 g/dL HCT 42.8 38.4 - 49.3 % MCV 95.1 81.7 - 95.6 fL MCH 32.0 26.1 - 32.7 pg MCHC 33.6 31.2 - 35.0 g/dL RDW-SD 46.1 38.5 - 51.6 fL RDW-CV 13.1 12.1 - 15.4 % PLT 197 150 - 328 10*3/?L MPV 10.2 9.8 - 13.0 fL NRBC/100 WBC 0.0 0.0 - 10.0 /100 WBCs NRBC x10 3 <0.01 10*3/?L GRAN MAT (NEUT) % 41.7 % IMM GRAN % 0.00 % LYMPH % 44.7 % MONO % 11.1 % EOS % 1.7 % BASO % 0.8 % GRAN MAT x10 3 (ANC) 2.00 1.99 - 6.95 10*3/uL IMM GRAN x10 3 <0.03 0.00 - 0.06 10*3/uL LYMPH x10 3 2.14 1.09 - 3.23 10*3/uL MONO x10 3 0.53 0.36 - 1.02 10*3/uL EOS x10 3 0.08 0.06 - 0.53 10*3/uL BASO x10 3 0.04 0.01 - 0.09 10*3/uL COMP. METABOLIC PANEL (04372) NA 138 135 - 145 mmol/L K 3.9 3.5 - 5.0 mmol/L CL 106 98 - 108 mmol/L CO2 TOTAL 26 23 - 31 mmol/L AGAP 6 2 - 16 BUN 15 7 - 23 mg/dL GLUCOSE 108 70 - 110 mg/dL CREATININE 0.78 0.60 - 1.25 mg/dL TOTAL BILI 0.2 0.1 - 1.1 mg/dL CALCIUM 9.5 8.6 - 10.6 mg/dL T PROTEIN 7.2 6.3 - 8.2 g/dL ALBUMIN 4.4 3.5 - 5.0 g/dL ALK PHOS 112 34 - 122 U/L ALTv 20 5 - 50 U/L AST(SGOT) 37 13 - 40 U/L eGFR 99.6 mL/min/1.73m2 HIV 1/2 AG-AB WITH REFLEX HIV 1/2 Ag-Ab with Reflex Negative Negative HIV Semi-quantitative 0.28 CD4 SUBSET ASSAY EKG: If EKG completed, see Procedure Note. Orders and Treatments: Orders Placed This Encounter Procedures CT HEAD WO CONTRAST CBC WITH DIFF COMP. METABOLIC PANEL (80783) HIV 1/2 Ag-Ab with Reflex Cd4 Subset Assay Magnesium URINALYSIS Orders Placed This Encounter Medications ketorolac (TORADOL) injection 30 mg First Provider Eval: ED Events Date/Time Event User Comments 06/02/24704 Medical Screening Begins KAREN STEWART DO -- 06/02/24 07 First Provider Evaluation KAREN STEWART DO -- ED COURSE Diagnosis/Impression as of 06/02/24 0941 Leg numbness Plantar wart Procedures: Procedures MDM: Medical Decision Making The patient presents from home and EMS for evaluation for numbness to his bilateral legs. He reports that he symptoms started about 1 hour prior to arrival. When chart reviewed in [facility] he has actually been seen here with his complaint numerous times in the past. No weakness to his arms or legs. No change in his speech. No blurry vision. No headache. No injury or trauma. No nausea, vomiting or diarrhea. No history of diabetes. Vital signs are stable in the ER. The patient is screaming for Lamont upon my initial examination and unable to answer questions or follow commands. After several minutes he does stop screaming for Lamont and is able to answer questions. He is awake, alert and orientated x 3. No facial asymmetry. Handgrip right equals left. Muscle strength is 5/5 to upper extremities and lower extremities bilaterally. Low concern for stroke however will obtain a CT of his head. Will check laboratory studies including his electrolytes such as magnesium and a urinalysis to evaluate possible infection. Final disposition pending. 0940 -the patient is doing well here in the ER. His laboratory studies are unremarkable. The CT of his head shows no acute intracranial abnormalities. His urinalysis shows no infection. He does have a small plantar wart noted on the bottom of his left foot. Recommend he use Dr. Alberts's plantar wart removal to help with the plantar wart. He may also follow-up with Dr. Velasquez with podiatry for assistance with his plantar wart. It is also recommended that he use a vitamin B multi complex to help with his paresthesias. He remained stable here in the ER and is okay for discharge home with PCP follow-up. Problems Addressed: Leg numbness: acute illness or injury Plantar wart: acute illness or injury Amount and/or Complexity of Data Reviewed Independent Historian: EMS Labs: ordered. Decision-making details documented in ED Course. Radiology: ordered and independent interpretation performed. Decision-making details documented in ED Course. Risk OTC drugs. Prescription drug management. Flowsheet Documentation: Scoring Tools: No data recorded Disposition/Condition: ED Disposition ED Disposition Discharge Condition Stable Comment -- Discharge Medications: Patient's Medications START taking these medications No medications on file CONTINUE taking these medications which have NOT CHANGED BENZONATATE 200 MG CAPSULE Take 1 capsule by mouth 3 (three) times daily as needed for Cough for up to 20 doses. METHYLPREDNISOLONE 4 MG TABLETS Take by mouth SEE-INSTRUCTIONS. follow package directions MICONAZOLE 2 % CREAM Apply to area(s) 2 (two) times daily. ONDANSETRON 4 MG DISINTEGRATING TABLET Take 1 tablet by mouth every 8 (eight) hours as needed for Nausea and Vomiting (N/V). START taking Modified Medications as Prescribed No medications on file STOP taking these medications No medications on file Follow-up: Electronically signed by: Karen Stewart DO 06/02/24 0942 [facility] 2024-04-07 23:17:13 Pt given printed and verbal discharge instructions regarding sore throat, encouraged hydration, Pt verbalized understanding of instructions, pt awake alert oriented, resp reg unlabored, skin w/d, color appropriate for race, moves all ext well,pt encouraged to follow up with pcp Advised to seek medical attention for new/prolonged/worsening of symptoms Awake, alert oriented, resp reg unlabored, skin w/d, pt leaving amb with steady gait, in no apparent distress, Rosa Jerome RN [facility] 2024-04-07 19:26:50 Pt c/o sore throat since Saturday and cough Verena Gallegos RN [facility] 2024-04-07 19:10:00 [facility] Emergency Department Note Patient Name: Jerry Momin Date of : 1960 63 year old male Treatment Room: [facility] Off the Floor Pool/A* Primary Care Physician: Barb Cooper Patient Escorted by: Family [5] Mode of Arrival: Personal means [1] EMS Treatment Prior to ED Arrival: Travel and Exposure Screening: Symptoms Does patient have any of these symptoms?: (not recorded) Exposure Screening Has patient had contact with someone with a communicable disease in the last month?: (not recorded) Diseases exposed to:: (not recorded) Is Patient ?: (not recorded) Exposure Date: (not recorded) Chief Complaint: Chief Complaint Patient presents with Sore Throat History of Present Illness: Patient is a 63 year old male that comes to the ED with complaint of sore throat. Patient denies any difficulty swallowing. He denies any constitutional symptoms there are no sick contacts of the recent travel. Past Medical History/Immunizations: Past Medical History: Diagnosis Date Borderline diabetes Allergies: Allergies Allergen Reactions Shellfish [Iodine And Iodide Containing Products] Anaphylaxis Milk Swelling Pepper (Genus Capsicum) Itching Seafood/Fish Swelling Past Social History: Substance & Sexual Activity No substance use or sexual activity history on file. Past Surgical History: No past surgical history on file. Review of Systems: Review of Systems Constitutional: Negative. HENT: Positive for sore throat. Eyes: Negative. Respiratory: Negative. Cardiovascular: Negative. Gastrointestinal: Negative. Musculoskeletal: Negative. Skin: Negative. Neurological: Negative. Psychiatric/Behavioral: Negative. All other systems reviewed and are negative. Endocrine: Endocrine negative Physical Exam: ED Triage Vitals [04/07/241926] Weight 86.2 kg (190 lb) Actual or estimated Estimated by patient/family report Height 1.829 m (6') BP 138/76 Pulse 73 Resp 18 Temp 36.5 ?C (97.7 ?F) Temp source Oral SpO2 100 % Measured on Room air Physical Exam Vitals and nursing note reviewed. Constitutional: Appearance: Normal appearance. He is normal weight. HENT: Head: Normocephalic and atraumatic. Right Ear: External ear normal. Left Ear: External ear normal. Nose: Nose normal. Mouth/Throat: Mouth: Mucous membranes are moist. Pharynx: Oropharynx is clear. Eyes: Extraocular Movements: Extraocular movements intact. Conjunctiva/sclera: Conjunctivae normal. Pupils: Pupils are equal, round, and reactive to light. Cardiovascular: Rate and Rhythm: Normal rate and regular rhythm. Pulmonary: Effort: Pulmonary effort is normal. Breath sounds: Normal breath sounds. Abdominal: General: Abdomen is flat. Bowel sounds are normal. Palpations: Abdomen is soft. Musculoskeletal: General: Normal range of motion. Cervical back: Normal range of motion. Skin: General: Skin is warm and dry. Neurological: General: No focal deficit present. Mental Status: He is alert and oriented to person, place, and time. Mental status is at baseline. Radiology: No orders to display Lab Results: Lab Results INFLUENZA A/B RSV COVID NAAT - Normal Result Value Ref Range Influenza A NAAT Negative Negative Influenza B NAAT Negative Negative RSV by PCR Negative Negative SARS-CoV-2 NAAT Negative Negative RAPID STREP SCREEN FOR GROUP A - Normal Molecular Strep Negative Negative THROAT CULTURE EKG: If EKG completed, see Procedure Note. Orders and Treatments: Orders Placed This Encounter Procedures Influenza A B RSV COVID NAAT RAPID STREP SCREEN FOR GROUP A Throat Culture Lab Only COVID Interpretation No orders of the defined types were placed in this encounter. First Provider Eval: ED Events Date/Time Event User Comments 04/07/241926 Medical Screening Begins BRANDON AWTTSARAI Gilmore -- 04/07/241926 First Provider Evaluation SUMITERYN -- ED COURSE Diagnosis/Impression as of 04/07/242305 Sore throat Procedures: Procedures MDM: Medical Decision Making Differential diagnosis includes strep pharyngitis viral pharyngitis, COVID Patient resting comfortably on stretcher in emergency department. Patient work-up here in emergency department was negative. Laboratory evaluation was unremarkable. Patient instructed follow-up with the primary care physician. Should any symptoms worsen patient is told to return to the emergency department. Problems Addressed: Sore throat: acute illness or injury Amount and/or Complexity of Data Reviewed Labs: ordered. Flowsheet Documentation: Scoring Tools: No data recorded Disposition/Condition: ED Disposition ED Disposition Disch - Home Condition Stable Comment -- Discharge Medications: Patient's Medications START taking these medications No medications on file CONTINUE taking these medications which have NOT CHANGED BENZONATATE 200 MG CAPSULE Take 1 capsule by mouth 3 (three) times daily as needed for Cough for up to 20 doses. METHYLPREDNISOLONE 4 MG TABLETS Take by mouth SEE-INSTRUCTIONS. follow package directions MICONAZOLE 2 % CREAM Apply to area(s) 2 (two) times daily. ONDANSETRON 4 MG DISINTEGRATING TABLET Take 1 tablet by mouth every 8 (eight) hours as needed for Nausea and Vomiting (N/V). START taking Modified Medications as Prescribed No medications on file STOP taking these medications No medications on file Follow-up: Electronically signed by: Eryn Watt MD 04/07/242305 EM-EMERGENCY MEDICINE STAFF [facility] 2024-03-23 15:54:29 Patient dc home. Follow up with pcp. Verbalized understanding. Signed paper work. [facility] 2024-03-23 11:39:36 Patient reports he has a cough and is congested and wants to get tested for covid. Alexx Maya RN [facility] 2023-12-05 00:00:31 Pt discharged with diagnosis of cramps, elevated CK, and non traumatic rhabdomyolysis. Printed and verbal instructions reviewed with and given to pt. Prescriptions given x 1. Pt verbalized understanding of teaching, medication, and recommended follow-up. Denies questions or concerns at this time. Pt ambulatory at discharge. Appears in no apparent distress. No ataxia noted. Sindi Villalpando RN [facility] 2023-12-04 19:55:21 Patient given urine cup and sent back to [facility]. [facility] 2023-12-04 19:00:23 Patient ambulatory to ED c/o muscle cramps in feet, hands, legs that "has been going on." It doesn't start until I go lay down for bedtime." Patient states "it has been a while since I have seen my doctor for this." Rosa Jerome RN [facility] 2023-09-14 19:41:03 Pt given printed and verbal discharge instructions regarding generalized abdominal pain, frequent bowel movements encouraged hydration, Prescriptions sent to pharmacy Discussed ibuprofen and to take with food to avoid GI distress. Pt verbalized understanding of instructions, pt awake alert oriented, resp reg unlabored, skin w/d, color appropriate for race, moves all ext well,pt encouraged to follow up with pcp. Advised to seek medical attention for new/prolonged/worsening of symptoms. PIV d'cd, dressing to site, catheter in tact. Awake, alert oriented, resp reg unlabored, skin w/d, pt leaving amb with steady gait, in no apparent distress, CHOPPER Verena Gallegos RN [facility] 2023-09-14 16:05:00 Patient states: "I've been having abdominal upset since 1 week now. I feel like I'm bloated. I feel like going to the bathroom every 5 minutes to poop but it's not diarrhea. History of IBD runs in our family." ANA Correia RN [facility] 2023-08-22 00:30:59 Pt given printed and verbal discharge instructions regarding chronic cough, sinus congestion, acute sinusitis, and bronchitis Prescriptions provided Pt verbalized understanding of instructions, pt awake alert oriented, resp reg unlabored, skin w/d, color appropriate for race, moves all ext well,pt encouraged to follow up with pcp Advised to seek medical attention for new/prolonged/worsening of symptoms No adverse reaction to meds given in ER noted upon discharge Awake, alert oriented, resp reg unlabored, skin w/d, pt leaving amb with steady gait, in no apparent distress ANA Guo RN [facility] 2023-08-21 22:03:31 Pt arrives ambulatory to ED c/o a cough x3 days. Denies fever or sore throat. Also reports having a stuffy head. ANA Stewart RN [facility] 2023-08-21 21:38:00 [facility] Emergency Department Note Patient Name: Jerry Momin Date of : 1960 63 year old male Treatment Room: [place] [address] Primary Care Physician: Marilyn Hughes Patient Escorted by: Family [5] Mode of Arrival: Personal means [1] EMS Treatment Prior to ED Arrival: Travel and Exposure Screening: Symptoms Does patient have any of these symptoms?: (not recorded) Exposure Screening Has patient had contact with someone with a communicable disease in the last month?: (not recorded) Diseases exposed to:: (not recorded) Is Patient ?: (not recorded) Exposure Date: (not recorded) Chief Complaint: Chief Complaint Patient presents with Cough History of Present Illness: 63 y.o. male with c/o cough, congestion and "allergies" x 2 days. Past Medical History/Immunizations: Past Medical History: Diagnosis Date Borderline diabetes Tetanus received in last 5 years: No Allergies: Allergies Allergen Reactions Shellfish [Iodine And Iodide Containing Products] Anaphylaxis Milk Swelling Pepper (Genus Capsicum) Itching Seafood/Fish Swelling Past Social History: Substance & Sexual Activity No substance use or sexual activity history on file. Past Surgical History: No past surgical history on file. Review of Systems: Review of Systems Constitutional: Negative for chills and fever. HENT: Positive for congestion, postnasal drip, sinus pressure and sneezing. Negative for sore throat, trouble swallowing and voice change. Eyes: Negative. Respiratory: Positive for cough. Breasts: Negative. Cardiovascular: Negative. Gastrointestinal: Negative. Genitourinary: Negative. Musculoskeletal: Negative. Skin: Negative. Neurological: Negative. Psychiatric/Behavioral: Negative. Endocrine: Endocrine negative Physical Exam: ED Triage Vitals [08/21/23 2207] Weight 81.6 kg (180 lb) Actual or estimated Estimated by patient/family report Height 1.803 m (5' 11") BP 139/80 Pulse 67 Resp 18 Temp 36.6 ?C (97.9 ?F) Temp source Oral SpO2 100 % Measured on Room air Physical Exam Vitals and nursing note reviewed. Constitutional: General: He is not in acute distress. Appearance: Normal appearance. He is not ill-appearing or toxic-appearing. HENT: Head: Normocephalic and atraumatic. Ears: Comments: Bilateral TM bulging, clear, no effusion Pulmonary: Effort: Pulmonary effort is normal. No respiratory distress. Breath sounds: Rhonchi and rales present. No wheezing. Abdominal: Palpations: Abdomen is soft. Musculoskeletal: General: Normal range of motion. Skin: General: Skin is warm. Capillary Refill: Capillary refill takes less than 2 seconds. Neurological: General: No focal deficit present. Mental Status: He is alert and oriented to person, place, and time. Psychiatric: Mood and Affect: Mood normal. Behavior: Behavior normal. Radiology: XR CHEST 2 VW Final Result Ordering Physician: SAUL CHAMBERS Clinical Indication: cough Additional Clinical Information: Technical Limitations: None Comparison: None Technique: PA and lateral chest Findings: No infiltrates or effusions. Heart size and mediastinum are normal. IMPRESSION No active pulmonary disease. RL: [id number] AFC: [id number] END OF REPORT Lab Results: Lab Results COVID-19 (ID NOW RAPID TESTING) - Normal Result Value Ref Range SARS-CoV-2 Rapid ID NOW Not Detected Not Detected RAPID INFLUENZA A/B - Normal Rapid Influenza A Negative Negative Rapid Influenza B Negative Negative EKG: If EKG completed, see Procedure Note. Orders and Treatments: Orders Placed This Encounter Procedures XR CHEST 2 VW COVID-19 (ID NOW TESTING) RAPID INFLUENZA A/B Lab Only COVID Interpretation No orders of the defined types were placed in this encounter. First Provider Eval: ED Events None ED COURSE Diagnosis/Impression as of 08/22/23 0004 Chronic cough Sinus congestion Acute sinusitis, recurrence not specified, unspecified location Bronchitis Procedures: Procedures MDM: Medical Decision Making Amount and/or Complexity of Data Reviewed Labs: ordered. Radiology: ordered. A) Sinusitis/Bronchitis Disposition/Condition: Home, Omnicef, Prednisone, Tessalon, rest, hydration, Claritin daily, ER warnings, f/u PCP in 2-3 days ED Disposition None Discharge Medications: Patient's Medications START taking these medications No medications on file CONTINUE taking these medications which have NOT CHANGED ALBUTEROL 90 MCG/ACTUATION INHALER Inhale 2 Puffs every 4 (four) hours as needed for Wheezing or Shortness of Breath. ALBUTEROL 90 MCG/ACTUATION INHALER Inhale 2 Puffs every 4 (four) hours as needed for Wheezing, Shortness of Breath or Chest tightness. AZITHROMYCIN (ZITHROMAX Z-BEAR) 250 MG TABLET Take 1 tablet by mouth SEE-INSTRUCTIONS. Take 500 mg day 1, then 250 mg days 2 to 5. BENZONATATE 100 MG CAPSULE Take 1 capsule by mouth 3 (three) times daily as needed for Cough. DEXTROMETHORPHAN-GUAIFENESIN 10-100 MG/5 ML SOLUTION Take 10 mL by mouth every 6 (six) hours as needed for Cough. DICYCLOMINE 20 MG TABLET Take 1 tablet by mouth 4 (four) times daily. DOXYCYCLINE HYCLATE 100 MG CAPSULE Take 1 capsule by mouth in the morning and 1 capsule in the evening. ETODOLAC ORAL Take 500 mg by mouth 2 (two) times daily. FLUTICASONE (FLONASE ALLERGY RELIEF) 50 MCG/ACTUATION NASAL SPRAY Use 1 [place] in each nostril daily. FLUTICASONE PROPIONATE 50 MCG/ACTUATION NASAL SPRAY Use 2 Sprays in each nostril daily. LACTULOSE 10 GRAM/15 ML ORAL SOLUTION Take 30 mL by mouth 3 (three) times daily as needed for Constipation or For bowel movement. LORATADINE 10 MG TABLET Take 1 tablet by mouth at bedtime as needed for Allergies. METHYLPREDNISOLONE 4 MG TABLETS Take by mouth SEE-INSTRUCTIONS. follow package directions METHYLPREDNISOLONE 4 MG TABLETS Take by mouth SEE-INSTRUCTIONS. follow package directions MICONAZOLE 2 % CREAM Apply to area(s) 2 (two) times daily. MONTELUKAST 10 MG TABLET Take 1 tablet by mouth every 24 (twenty-four) hours as needed (symptoms). NAPROXEN (NAPROSYN) 500 MG TABLET Take 1 tablet by mouth 2 (two) times daily with meals. NYSTATIN-TRIAMCINOLONE (MYCOLOG) OINTMENT Apply to area(s) 2 (two) times daily. ONDANSETRON 4 MG DISINTEGRATING TABLET Take 1 tablet by mouth every 4 (four) hours as needed for Nausea and Vomiting (N/V). PREDNISONE 20 MG TABLET Take 3 tablets by mouth every morning. PROMETHAZINE-CODEINE 6.25-10 MG/5 ML SYRUP Take 5 mL by mouth 4 (four) times daily as needed for Cough. SOD [id number] BOTTLE (NEILMED SINUS RINSE COMPLETE) PKDV Use 1 Bottle in each nostril 2 (two) times daily. Use in hot shower 1 hour before bedtime SUCRALFATE 1 GRAM TABLET Take 1 tablet by mouth before meals and at bedtime. TRAMADOL (ULTRAM) 50 MG TABLET Take 1 tablet by mouth every 6 (six) hours as needed for Pain (scale 7-10). START taking Modified Medications as Prescribed No medications on file STOP taking these medications No medications on file Follow-up: PCP Electronically signed by: Saul Chambers MD 08/21/23 9487 [facility]
[2024-06-16] MEDS ORDERED: CEFTRIAXONE 1000 MG/VIAL ONE (09:38)
[2024-06-16] MEDS ORDERED: THIAMINE 200 MG/2 ML INJ ONE (09:38)
[2024-06-16] MEDS ORDERED: FOLIC ACID 5 MG/ML VIAL ONE (09:39)
[2024-06-16] MEDS ORDERED: NA CHLORIDE 0.9% 100 ML ONE (09:40)
[2024-06-16 09:48] LABS: Absolute Lymphocytes (CBC) 1.6 K/uL (0.7-4.9); Absolute Monocytes 0.4 K/uL (0.1-1.3); Basophils % 0.5 % (0-1.3); Eosinophils % 0.6 % (0-4.4); Hematocrit 44.9 % (39.6-49.0); Lymphocytes % 26.3 % (15.3-44.8); MCH 32.3 pg (27.0-35.0); MCHC 33.4 g/dL (32.0-36.0); MCV 96.7 fL (80-100); MPV 8.4 fL (7.6-11.3); Monocytes % 7.3 % (3.3-12.3); Neutrophils % 65.3 % (41.7-73.7); Nucleated Red Blood Cells % 0.1 % (0-0); Platelets 201 thou/uL (152-406); RBC Red Blood Cell Count 4.65 M/uL (4.33-5.43); Red Cell Distribution Width 13.7 % (12.1-15.2)
--- NOTE | 2024-06-16 09:53 | RAD REPORT ---
EXAM: CT brain without contrast HISTORY: Dizziness;Confused COMPARISON: None TECHNIQUE: Multiple contiguous axial images were obtained and a CT of the brain without contrast. Sag ittal and coronal reformats were performed. One or more of the following dose reduction techniques were used: Automated exposure control, adjust ment of the mA and/or kV according to patient size, and/or iterative reconstruction. FINDINGS: No evidence of hydrocephalus, intracranial hemorrhage, or extra-axial fluid collection. The brain is normal in morphology. No evidence of midline shift or areas of brain edema. The calvarium is intact. The visualized paranasal sinuses and mastoid air cells are essentially clear . IMPRESSION: No evidence of acute intracranial abnormality.
[2024-06-16] MEDS ORDERED: NA CHLORIDE 0.9% 1,000 ML with FOLIC ACID 1 MG, THIAMINE HCL 100 MG, MULTIVITAMINS INJ ... IV SCH (10:00)
--- NOTE | 2024-06-16 10:01 | RAD REPORT ---
EXAMINATION: CT ABDOMEN AND PELVIS WITHOUT CONTRAST CLINICAL INDICATION: PAIN TECHNIQUE: CT abdomen and pelvis was performed, without IV contrast, as per department protocol. Axia l, sagittal and coronal reconstructions were obtained. One or more of the following dose reduction techniques were used: Automated exposure control, adjustment of the mA and kV according to the patien t size, and iterative reconstruction. Unless otherwise specified, incidental findings do not require dedicated imaging follow-up. COMPARISON: No prior exam. FINDINGS: The lack of intravenous contrast limits the sensitivity of this exam for evaluation of solid visceral organs, vascular structures, and retroperitoneum. LOWER CHEST: The visualized lung bases are clear. LIVER:Normal in size and contour. No focal lesion. Grossly unremarkable gallbladder. SPLEEN: Normal size. No focal lesion. PANCREAS: No mass, ductal dilation, or louise-pancreatic fluid. ADRENALS: Normal; no mass. KIDNEYS AND URETERS: Normal size and contour. No hydronephrosis. URINARY BLADDER: Normal contour. GASTROINTESTINAL TRACT: No evidence of bowel obstruction, significant free fluid, free air or abscess . Moderate stool is present in the colon. APPENDIX: Normal appendix. LYMPH NODES: No lymphadenopathy. MUSCULOSKELETAL: Degenerative change lumbosacral articulation, prominent facet arthrosis noted. ADDITIONAL FINDINGS: None. IMPRESSION: No acute or concerning abnormalities in the abdomen or pelvis, with evaluation limited by lack of IV contrast.
[2024-06-16 10:11] LABS: Specific Gravity 1.017 (1.005-1.030); Urine Bilirubin NEGATIVE (Negative); Urine Blood Negative (Negative); Urine Clarity Clear (Clear); Urine Color Light-Yellow (Yellow); Urine Glucose NEGATIVE (Negative); Urine Ketones NEGATIVE (Negative); Urine Microscopic Reflex YN NO UMIC; Urine Nitrite NEGATIVE (Negative); Urine Protein NEGATIVE (Negative); Urine Urobilinogen Normal (Normal); Urine pH 6.5 (5.0-7.0)
[2024-06-16 10:12] LABS: Albumin 3.9 g/dL (3.4-5.0); Albumin/Globulin Ratio 1.1 (1.1-1.8); Bilirubin Total 0.4 mg/dL (0.2-1.0); Globulin 3.4 g/dL (2.3-3.5); Protein, Total 7.3 g/dL (6.4-8.2); Troponin High Sensitivity 5.5 pg/mL (<58.9)
--- NOTE | 2024-06-16 10:57 | ER ---
Nurse's Notes [facility] Name: Esau Momin Age: 63 yrs Sex: Male : 1960 Arrival Date: 06/16/2024 Time: 08:59 Bed 17 Private MD: Diagnosis: Dysuria;Altered mental status, unspecified-resolved Presentation: 06/16 09:10 Chief complaint: Spouse and/or significant other states: was diagnosed with UTI at [facility] on Saturday , was started on doxycycline, he is not acting like his normal self which started a week ago and seems worse. Coronavirus screen: At this time, the client does not indicate any symptoms associated with coronavirus-19. Ebola Screen: No symptoms or risks identified at this time. Initial Sepsis Screen: Does the patient meet any 2 criteria? No. Patient's initial sepsis screen is negative. Does the patient have a suspected source of infection? No. Patient's initial sepsis screen is negative. Risk Assessment: Do you want to hurt yourself or someone else? Patient reports no desire to harm self or others. Onset of symptoms was June 09, 2024. 09:10 Method Of Arrival: Ambulatory 09:10 Acuity: MARITZA 3 iw Historical: - Allergies: 09:13 No Known Allergies; iw - Home Meds: 09:13 None [Active]; iw - PMHx: 09:13 None; iw - Immunization history:: Adult Immunizations not up to date. - Infectious Disease History:: Denies. - Social history:: Smoking status: Patient reports the use of cigarette tobacco products, cigars. - Family history:: not pertinent. Screenin:19 [facility] ED Fall Risk Assessment (Adult) History of falling in the last 3 months, including since admission No falls in past 3 months (0 pts) Confusion or Disorientation No (0 pts) Intoxicated or Sedated No (0 pts) Impaired Gait No (0 pts) Mobility Assist Device Used No (0 pt) Altered Elimination No (0 pt) Score/Fall Risk Level 0 - 2 = Low Risk Oriented to surroundings, Maintained a safe environment. Abuse screen: Denies threats or abuse. Denies injuries from another. Nutritional screening: No deficits noted. Tuberculosis screening: No symptoms or risk factors identified. Assessment: 10:19 Reassessment: Patient appears in no apparent distress at this time. Patient and/or iw family updated on plan of care and expected duration. Pain level reassessed. Patient is alert, oriented x 3, equal unlabored respirations, skin warm/dry/pink. General: Appears in no apparent distress. comfortable, Behavior is calm, cooperative. Pain: Denies pain. Neuro: Level of Consciousness is awake, alert, obeys commands, Oriented to person, place, time, situation. Respiratory: Airway is patent Respiratory effort is even, unlabored, Respiratory pattern is regular, symmetrical. 11:10 Reassessment: Patient appears in no apparent distress at this time. Patient and/or db family updated on plan of care and expected duration. Pain level reassessed. Patient is alert, oriented x 3, equal unlabored respirations, skin warm/dry/pink. DC PENDING PATIENT BANANA BAG FLUIDS. 11:54 Reassessment: Patient appears in no apparent distress at this time. Patient and/or db family updated on plan of care and expected duration. Pain level reassessed. Patient is alert, oriented x 3, equal unlabored respirations, skin warm/dry/pink. Vital Signs: 09:10 BP 143 / 86; Pulse 72; Resp 16 S; Pulse Ox 100% on R/A; iw 09:23 Temp 98.3(O); db 10:00 BP 124 / 69; Pulse 62; Resp 16; Pulse Ox 99% on R/A; iw 11:30 BP 153 / 70; Pulse 61; Resp 18; Pulse Ox 100% on R/A; db ED Course: 09:04 Patient arrived in ED. im 09:05 Manuel Haas MD is Attending Physician. fely 09:12 Triage completed. iw 09:13 Arm band placed on. iw 09:23 Alvina Juarez, RN is Primary Nurse. db 09:30 Patient has correct armband on for positive identification. Bed in low position. Call iw light in reach. Side rails up X 1. Pulse ox on. NIBP on. Warm blanket given. Pillow given. 09:30 Initial lab(s) drawn, by me, sent to lab. Urine collected: clean catch specimen. iw Inserted saline lock: 20 gauge in right antecubital area, using aseptic technique. Blood collected. Flushed with 10 mL NS. 09:39 CT Stone Protocol In Process Unspecified. EDMS 09:39 CT Head Brain wo Cont In Process Unspecified. EDMS 10:56 Luis Antonio Fontana MD is Referral Physician. fely 10:58 Christian Cisneros MD is Referral Physician. fely 11:03 Chest Single View XRAY In Process Unspecified. EDMS 11:13 EKG done, by ED staff, reviewed by Manuel Haas MD. nh2 11:54 Provided Education on: DISCHARGE AND FOLLOWUP. db 11:54 No provider procedures requiring assistance completed. IV discontinued, intact, db bleeding controlled, No redness/swelling at site. Administered Medications: 09:45 Drug: Rocephin IV 1 grams IV at per protocol once; Given slow IV push per pharmacy iw instructions Route: IV; Rate: per protocol; Site: right antecubital; 10:30 Follow up: Response: No adverse reaction; IV Status: Completed infusion; IV Intake: 50mldb 09:45 Drug: foLIC Acid IVPB 1 mg IVPB once Route: IVPB; Site: right antecubital; iw 11:53 Follow up: Response: No adverse reaction; IV Status: Completed infusion; IV Intake: 25mldb 09:45 Drug: Thiamine IV 100 mg IV at per protocol once Route: IV; Rate: per protocol; Site: iw right antecubital; 11:54 Follow up: Response: No adverse reaction; IV Status: Completed infusion; IV Intake: 25mldb 10:15 Drug: Banana Bag - (Multivitamin IV 1 amp, NS 0.9% IV 1000 ml, Thiamine IV 100 mg, iw foLIC Acid IVPB 1 mg) IV at 500 ml/hr once Route: IV; Rate: 500 ml/hr; Site: right antecubital; 11:53 Follow up: Response: No adverse reaction; IV Status: Completed infusion; IV Intake: db 1000ml Medication: 10:19 VIS not applicable for this client. iw Intake: 10:30 IV: 50ml; Total: 50ml. db 11:53 IV: 1000ml; Total: 1050ml. db 11:53 IV: 25ml; Total: 1075ml. db 11:54 IV: 25ml; Total: 1100ml. db Outcome: 10:56 Discharge ordered by . fely 11:54 Discharged to home ambulatory, with family, db 11:54 Condition: stable 11:54 Discharge instructions given to patient, family, Instructed on discharge instructions, follow up and referral plans. Prescriptions given X 2, 11:56 Patient left the ED. db Signatures: Dispatcher [employer] Manuel Dumont MD MD cha Williams, Irene RN Alvina Lawler RN RN Lara Rosenberg Jr, Rafita [facility]
--- NOTE | 2024-06-16 10:57 | EDPHYS ---
Physician Documentation [facility] Name: Esau Momin Age: 63 yrs Sex: Male : 1960 Arrival Date: 06/16/2024 Time: 08:59 Bed 17 Private MD: [facility] Physician Manuel Haas HPI: 06/16 09:53 This 63 yrs old Unknown Male presents to ER via Ambulatory with complaints of Urinary fely Problem. 09:53 The patient presents with urinary symptoms, dysuria. Onset: The symptoms/episode fely began/occurred 5 day(s) ago. Modifying factors: The symptoms are alleviated by nothing, the symptoms are aggravated by nothing. The patient presents with confusion, no confusion currently. Possible causes: CVA or TIA, head injury, low blood sugar, seizure, sepsis. Associated signs and symptoms: Pertinent positives: confusion. Current symptoms: In the emergency department the patient's symptoms have improved, markedly, is less confused. Patient's baseline: Neuro: alert and fully oriented. Historical: - Allergies: :13 No Known Allergies; iw - Home Meds: : None [Active]; iw - PMHx: 09:13 None; iw - Immunization history:: Adult Immunizations not up to date. - Infectious Disease History:: Denies. - Social history:: Smoking status: Patient reports the use of cigarette tobacco products, cigars. - Family history:: not pertinent. ROS: 09:53 Constitutional: Negative for fever, chills, and weight loss, Eyes: Negative for injury, fely pain, redness, and discharge, ENT: Negative for injury, pain, and discharge, Neck: Negative for injury, pain, and swelling, Cardiovascular: Negative for chest pain, palpitations, and edema, Respiratory: Negative for shortness of breath, cough, wheezing, and pleuritic chest pain, Abdomen/GI: Negative for abdominal pain, nausea, vomiting, diarrhea, and constipation, Back: Negative for injury and pain, MS/Extremity: Negative for injury and deformity, Skin: Negative for injury, rash, and discoloration, Neuro: Negative for headache, weakness, numbness, tingling, and seizure, Psych: Negative for depression, anxiety, suicide ideation, homicidal ideation, and hallucinations, Allergy/Immunology: Negative for hives, rash, and allergies, Endocrine: Negative for neck swelling, polydipsia, polyuria, polyphagia, and marked weight changes, Hematologic/Lymphatic: Negative for swollen nodes, abnormal bleeding, and unusual bruising, 09:53 : Positive for burning with urination, Exam: 09:53 Constitutional: This is a well developed, well nourished patient who is awake, alert, fely and in no acute distress. Head/Face: Normocephalic, atraumatic. Eyes: Pupils equal round and reactive to light, extra-ocular motions intact. Lids and lashes normal. Conjunctiva and sclera are non-icteric and not injected. Cornea within normal limits. Periorbital areas with no swelling, redness, or edema. ENT: Nares patent. No nasal discharge, no septal abnormalities noted. Tympanic membranes are normal and external auditory canals are clear. Oropharynx with no redness, swelling, or masses, exudates, or evidence of obstruction, uvula midline. Mucous membranes moist. Neck: Trachea midline, no thyromegaly or masses palpated, and no cervical lymphadenopathy. Supple, full range of motion without nuchal rigidity, or vertebral point tenderness. No Meningismus. Chest/axilla: Normal chest wall appearance and motion. Nontender with no deformity. No lesions are appreciated. Cardiovascular: Regular rate and rhythm with a normal S1 and S2. No gallops, murmurs, or rubs. Normal PMI, no JVD. No pulse deficits. Respiratory: Lungs have equal breath sounds bilaterally, clear to auscultation and percussion. No rales, rhonchi or wheezes noted. No increased work of breathing, no retractions or nasal flaring. Abdomen/GI: Soft, non-tender, with normal bowel sounds. No distension or tympany. No guarding or rebound. No evidence of tenderness throughout. Back: No spinal tenderness. No costovertebral tenderness. Full range of motion. Male : Normal genitalia with no discharge or lesions. Skin: Warm, dry with normal turgor. Normal color with no rashes, no lesions, and no evidence of cellulitis. MS/ Extremity: Pulses equal, no cyanosis. Neurovascular intact. Full, normal range of motion. Neuro: Awake and alert, GCS 15, oriented to person, place, time, and situation. Cranial nerves II-XII grossly intact. Motor strength 5/5 in all extremities. Sensory grossly intact. Cerebellar exam normal. Normal gait. Psych: Awake, alert, with orientation to person, place and time. Behavior, mood, and affect are within normal limits. 09:53 Musculoskeletal/extremity: DVT Exam: No signs of deep vein thrombosis. no pain, no swelling, no tenderness, negative Homans' sign noted on exam, no appreciated bluish discoloration, no erythema, no increased warmth, 10:56 ECG was reviewed by the Attending Physician. [facility] Vital Signs: 09:10 BP 143 / 86; Pulse 72; Resp 16 S; Pulse Ox 100% on R/A; iw 09:23 Temp 98.3(O); db 10:00 BP 124 / 69; Pulse 62; Resp 16; Pulse Ox 99% on R/A; iw 11:30 BP 153 / 70; Pulse 61; Resp 18; Pulse Ox 100% on R/A; db MDM: 09:05 Medical Screening Exam initiated fely 09:55 Differential diagnosis: nonspecific abdominal pain, UTI, urinary retention, fely prostatitis, urethritis. Differential Diagnosis: CVA, electrolyte abnormality, hypoglycemia, intracranial bleed, meningitis, overdose, pneumonia, seizure, sepsis, TIA, UTI, volume depletion. Data reviewed: vital signs, nurses notes, lab test result(s), EKG, radiologic studies, CT scan, plain films. Consideration of Admission/Observation Escalation of care including admission/observation considered. I considered the following discharge prescriptions or medication management in the emergency department Medications were administered in the Emergency Department. See MAR. Independent interpretation of the following test(s) in the Emergency Department EKG: See my EKG interpretation above. 06/16 09:24 Order name: CBC with Diff; Complete Time: 10:35 [facility] 06/16 09:24 Order name: Comprehensive Metabolic Panel; Complete Time: 10:35 [facility] 06/16 09:24 Order name: Troponin High Sensitivity; Complete Time: 10:35 [facility] 06/16 09:24 Order name: Urine Culture [facility] 06/16 09:24 Order name: Urinalysis w/ reflexes; Complete Time: 10:35 [facility] 06/16 09:24 Order name: Chest Single View XRAY [facility] 06/16 09:24 Order name: CT Stone Protocol; Complete Time: 10:35 [facility] 06/16 09:24 Order name: CT Head Brain wo Cont; Complete Time: 10:35 [facility] 06/16 09:24 Order name: EKG - Nurse/Tech; Complete Time: 10:53 fely 06/16 10:48 Order name: Misc. Order: get EKG; Complete Time: :53 fely EC:56 Rate is 59 beats/min. Rhythm is regular. QRS [place] is Normal. [place] interval is normal. QRS fely interval is normal. QT interval is normal. No Q waves. T waves are Normal. No ST changes noted. Clinical impression: LVH and Sinus bradycardia. Interpreted by me. Reviewed by me. Administered Medications: 09:45 Drug: Rocephin IV 1 grams IV at per protocol once; Given slow IV push per pharmacy iw instructions Route: IV; Rate: per protocol; Site: right antecubital; 10:30 Follow up: Response: No adverse reaction; IV Status: Completed infusion; IV Intake: 50mldb 09:45 Drug: foLIC Acid IVPB 1 mg IVPB once Route: IVPB; Site: right antecubital; iw 11:53 Follow up: Response: No adverse reaction; IV Status: Completed infusion; IV Intake: 25mldb 09:45 Drug: Thiamine IV 100 mg IV at per protocol once Route: IV; Rate: per protocol; Site: right antecubital; 11:54 Follow up: Response: No adverse reaction; IV Status: Completed infusion; IV Intake: 25mldb 10:15 Drug: Banana Bag - (Multivitamin IV 1 amp, NS 0.9% IV 1000 ml, Thiamine IV 100 mg, iw foLIC Acid IVPB 1 mg) IV at 500 ml/hr once Route: IV; Rate: 500 ml/hr; Site: right antecubital; 11:53 Follow up: Response: No adverse reaction; IV Status: Completed infusion; IV Intake: db 1000ml Disposition Summary: 06/16/24 10:56 Discharge Ordered Notes: Location: Home fely Problem: new fely Symptoms: have improved fely Condition: Stable fely Diagnosis - Dysuria fely - Altered mental status, unspecified - resolved fely Followup: fely - With: Private Physician - When: 2 - 3 days - Reason: Recheck today's complaints, Continuance of care, Re-evaluation by your physician Followup: fely - With: Luis Antonio Fontana MD - When: 2 - 3 days - Reason: Recheck today's complaints, Re-evaluation by your physician Followup: fely - With: Christian Cisneros MD - When: 2 - 3 days - Reason: Recheck today's complaints, Re-evaluation by your physician Discharge Instructions: - Discharge Summary Sheet fely - Confusion fely - Dysuria fely - Aspirin and Your Heart fely Forms: - Medication Reconciliation Form fely - Antibiotic Education fely - Prescription Opioid Use fely - Patient Portal Instructions fely - Leadership Thank You Letter fely Prescriptions: - Cipro 250 mg Oral tablet - take 1 tablet ORAL route every 12 hours; 20 tablet; Refills: 0, Product fely Selection Permitted - Folic Acid 1 mg Oral Tablet - take 1 tablet ORAL route once daily; 30 tablet; Refills: 0, Product Selection fely Permitted Signatures: Dispatcher [employer] EDManuel Roa MD MD cha Williams, Irene, RN RN Alvina Mueller RN db Corrections: (The following items were deleted from the chart) 09:25 09:25 Chest Single View+RAD.RAD.BRZ ordered. EDMS EDMS 09: 09:25 Stone Protocol+CT.RAD.BRZ ordered. EDMS EDMS 09:25 09:25 Head Brain Wo Cont+CT.RAD.BRZ ordered. EDMS EDMS
--- NOTE | 2024-06-16 11:13 | RAD REPORT ---
EXAMINATION: ONE VIEW CHEST XR CLINICAL INDICATION: COUGH TECHNIQUE: Frontal chest projection is submitted. Examination is limited by patient positioning and t echnique. COMPARISON: 09/11/2016 FINDINGS: The lungs are well inflated and clear. The heart is upper limit of normal in size. No displaced fract ures identified. IMPRESSION: No acute intrathoracic abnormalities.
[2024-06-16 15:24] VITALS: TEMP 98.3
[2024-06-16 15:26] VITALS: BP 153/70; O2SAT 100
--- NOTE | 2024-06-17 11:35 | EKG ---
Test Date: 2024-06-16 Test Time: 10:49:28 [employer] Seam[employer]: [employer] MEASUREMENT RESULTS: Intervals: Rate: 59 NV: 150 QRSD: 94 QT: 428 QTc: 423 [place]: P: 74 NV: 150 QRS: 71 T: 57 INTERPRETIVE STATEMENTS: Sinus bradycardia Voltage criteria for left ventricular hypertrophy Early repolarization Abnormal ECG Compared to ECG 09/11/2016 17:22:24 Early repolarization now present Sinus rhythm no longer present T-wave abnormality no longer present Electronically Signed On 06-17-24 11:32:12 COLON THERAPIST by Sterling Crain
== END 2024-06-16 11:56 | disposition home or self-care (01) ==
LOC: ER 08:59
DX: R30.0 Dysuria (principal); Z72.0 Tobacco use
CPT/HCPCS: 96365; 96367; 96368; 93005; 85025; 87086; 36415; 81003; 84484; 80053; 70450; 76377; 74176; 71045; 99284; J3411 ×2; J7030; J0696; 87088

== ENCOUNTER 2024-06-17 15:15 | Emergency (ER) | payer OTHER ==
--- OUTSIDE RECORDS SUMMARY | 2024-06-17 15:21 | XMS REPORT | Continuity of Care Document ---
Author Name Unknown Address [address] [facility] [address] [place] [address] [facility] Address [address] [facility] [address] [place] [address] Care Team Providers Care Assistant Program Manager Name Role Phone Barb Cooper MD Primary Care Physician [phone] Omayra Medina Attending Clinician Unavail able Barb Cooper Attending Clinician Unavailable Genny Taylor Attending Clinician Unavailable Marilyn Hughes Attending Clinician Unavailable Zabrina Aguilar Attending Clinician Unavailable VIBHA CHANDLER Attending Clinician Unavailable IVBHA CHANDLER Attending Clinician Unavailable Vibha Chandler MD Attending Clinician [phone] Karen Stewart DO Attending Clinician [phone] ERYN WATT Attending Clinician Unavailab Enrike Blount Attending Clinician [phone] Eryn Watt MD Attending Clinician [phone] Enrike BEAUCHAMP Attending Clinician Unavailable Enrike BEAUCHAMP Attending Clinician Unavailable MARCIA CAMACHO Attending Clinician Unavailable Marcia Camacho NP Attending Clinician +1 WAQAS RIOS Attending Clinician Unavailable Gabriel CARGO SURVEYOR, Waqas Attending Clinician + SAUL CHAMBERS Attending Clinician Unavailable Saul Chambers MD Attending Clinician + BRETT THORPE Attending Clinician Unavailable BRETT THORPE Attending Clinician Unavailable DAMIEN MCLAUGHLIN Attending Clinician Unavailable Damien Mclaughlin MD Attending Clinician + LILIA ROWLAND Attending Clinician Unavailab carolyn Rowland CARGO SURVEYOR, Lilia Morris Attending Clinician +1- VENU RIDER Attending Clinician Unavailable Venu Rider MD Attending Clinician + KAREN STEWART Attending Clinician Unavailab Karen Marquez DO Attending Clinician + DIOMEDES RUSSO Attending Clinician Unavailable Diomedes Malin Attending Clinician + Doctor Unassigned, [place] Attending Clinician U nathalyailDAMON Coffey Attending Clinician Unavailable Denis SCOTTPDamon Attending Clinician + JOY SANTOS Attending Clinician Unavailable Tom SCHULTE, Joy Attending Clinician [phone] Greg Chawla DO Attending Clinician + GREG CHAWLA Attending Clinician Unavailable Richar SCHULTE, Brendan York Attending Clinician +[phone] BRENDAN MCQUEEN Attending Clinician Unavaila ble [place] SCOTTP, Samantha Attending Clinician + Donna CARGO SURVEYORAmarilys Attending Clinician + WAQAS RIOS Admitting Clinician Unavailable SAUL CHAMBERS Admitting Clinician Unavailable VENU RIDER Admitting Clinician Unavailable KAREN STEWART Admitting Clinician Unavailab DAMIEN Solis Admitting Clinician Unavailable VIBHA CHANDLER Admitting Clinician Unavailable DAMON VASQUEZ Admitting Clinician Unavailable BRENDAN MCQUEEN Admitting Clinician Unavaila ble Payers Payer Name Policy Type Policy Number Effective Date Expirati on Date Source [facility] [id number] 2024 00:00:00 [facility] 2 [id number] 2017 00:00:00 [facility] PLUS [id number] 2022 00:00:00 [facility] PLUS [id number] 2019 00:00:00 MEDICAID [facility] [id number] 2011 00:00:00 [facility] MEDICAID MC [id number] 2011 00:00:00 [facility] MEDICAID MC [id number] 2011 00:00:00 [facility] MEDICAID MC [id number] 2011 00:00:00 [facility] Problems Condition Name Condition Details Condition Category Status Onset Date Resolution Date Last Treatment Date Treating Clinician Comments Source No known active problems No known active problems Disease [facility] Decreased hearing Decreased hearing Problem [facility] Tobacco user Smokes Problem [facility] [id number] CARMEN (generaliz ed anxiety disorder) Problem [facility] [id number] Other tobacco product nicotine dependence , uncomplica mariya Problem [facility] Foot callus Foot callus Problem [facility] Sexual dysfunctio n Sexual dysfunctio n, unspecifie d Problem [facility] Epidermal cyst Epidermal cyst Problem [facility] Onychomyco sis Onychomyco sis Problem [facility] FH: Diabetes mellitus Family history of diabetes mellitus Problem [facility] [id number] Neck pain Problem Commo n [facility] Plantar fasciitis Plantar fasciitis Problem [facility] [id number] Shortness of breath Problem [facility] Gastroesop hageal reflux disease GERD without esophagiti s Problem [facility] [id number] Pain in right leg Problem [facility] [id number] Chronic fatigue Problem [facility] Nicotine dependence Nicotine dependence Problem [facility] [id number] Tinea pedis of right foot Problem [facility] [id number] Lower abdominal pain Problem [facility] [id number] Cold intoleranc e Problem [facility] [id number] Allergic rhinitis due to animal dander Problem [facility] [id number] Snoring Problem [facility] [id number] Allergic rhinitis, unspecifie d seasonalit y, unspecifie d trigger Problem [facility] [id number] Vitamin D deficiency Problem [facility] [id number] Constipati on, unspecifie d constipati on type Problem [facility] [id number] Prediabete s Problem [facility] [id number] Inguinal hernia, right Problem [facility] [id number] Peripheral polyneurop athy Problem [facility] [id number] Pain of left leg Problem [facility] [id number] Hyperlipid emia, unspecifie d hyperlipid emia type Problem [facility] [id number] Motion sickness, initial encounter Problem [facility] [id number] Nonintract able headache, unspecifie d chronicity pattern, unspecifie d headache type Problem [facility] [id number] Depression screening Problem [facility] 36481110 Left testicular pain Problem [facility] Peripheral neuropathy Peripheral neuropathy Problem [facility] [id number] Acute lower urinary tract infection Problem [facility] [id number] Muscle cramps Problem [facility] [id number] Polyneurop athy associated with underlying disease Problem [facility] History of tobacco use History of cigar smoking Problem [facility] Pain co-occurre nt and due to varicose veins of bilateral legs Varicose veins of bilateral lower extremitie s with pain Problem [facility] [id number] Other chronic pain Problem [facility] [id number] Neuropathy Problem Com [facility] Allergies, Adverse Reactions, Alerts Allergy Name Allergy Type Status Severity Reaction(s) Onset Date Inactive Date Treating Clinician Comments Source Milk Propensi ty to adverse reaction s Active Swelling 08-07 00:00: 00 [facility] MILK DRUG INGREDI Active Swelling 08-07 00:00: 00 [facility] Iodine And Iodide Containi ng Products Propensi ty to adverse reaction s Active Anaphylaxis 08-08 00:00: 00 [facility] Pepper (Genus Capsicum ) Propensi ty to adverse reaction s Active Itching 08-08 00:00: 00 [facility] Seafood/ Fish Propensi ty to adverse reaction s Active Swelling 08-08 00:00: 00 [facility] Iodine And Iodide Containi ng Products Propensi ty to adverse reaction s Active Anaphylaxis 08-08 00:00: 00 [facility] PEPPER (GENUS CAPSICUM ) DRUG INGREDI Active ITCHING 08-08 00:00: 00 [facility] SEAFOOD/ FISH Food Active Swelling 08-08 00:00: 00 [facility] IODINE AND IODIDE CONTAINI NG PRODUCTS Drug Class Active High Anaphylaxis 08-08 00:00: 00 [facility] sulfamet hoxazole / trimetho prim sulfamet hoxazole / trimetho prim Active itching [facility] Social History Social Habit Start Date Stop Date Quantity Comments Source [facility] of Tobacco Use Current Smoker [facility] Sex Assigned At [facility] Exposure to SARS-CoV-2 (event) 2022-07-14 00:00:00 2022-07-24 22:16:00 Not sure [facility] Smoking Status Start Date Stop Date Source Current Smoker 2024-06-08 00:00:00 [facility] Never Smoker [facility] Tobacco smoking consumption unknown [facility] Medications Ordered Medication Name Filled Medication Name [...] Site: Urine, Duration of Therapy: Once (ED) [facility] cefTRIAXone (ROCEPHIN) injection 500 mg 2023-07 06:30: 00 06-14 06:50 :00 No 500mg 500 mg, Intramuscu lar, ONCE, 1 dose, On 06/14/24 at 0030, STAT, Reason for Anti-Infec tive: Documented Infection, Documented Infection Site: Urine, Duration of Therapy: Once (ED) [facility] doxycycline hyclate 100 mg capsule 2023-07 00:00: 00 Yes [id number] 100mg Take 1 capsule by mouth in the morning and 1 capsule in the evening. [facility] phenazopyri dine 200 mg tablet 2023-07 00:00: 00 Yes [id number] 200mg Take 1 tablet by mouth in the morning and 1 tablet at noon and 1 tablet in the evening. [facility] Vitamin D-3 5000 UNIT Vitamin D-3 5000 [...] Slow IV Push, ONCE, 1 dose, On Sat06/02/24 at 0945, Routine [facility] benzonatate 200 mg capsule 03-23 00:00: 00 Yes [id number] 200mg Take 1 capsule by mouth 3 (three) times daily as needed for Cough for up to 20 doses. [facility] ondansetron 4 mg disintegrat ing tablet 03-23 00:00: 00 Yes [id number] 4mg Take 1 tablet by mouth every 8 (eight) hours as needed for Nausea and Vomiting (N/V). [facility] baclofen 5 mg tablet 12-03 00:00: 00 12-18 04:59 :00 No [id number] 5mg Take 1 tablet by mouth at bedtime for 14 days. [facility] ondansetron 4 mg disintegrat ing tablet 09-14 00:00: 00 12-03 00:00 :00 No [id number] 4mg Take 1 tablet by mouth every 8 (eight) hours as needed for Nausea and Vomiting (N/V). [facility] dicyclomine 20 mg tablet 09-14 00:00: 00 12-03 00:00 :00 No [id number] 20mg Take 1 tablet by mouth 3 (three) times daily as needed for Abdominal pain. [facility] famotidine (PEPCID) 40 mg tablet 09-14 00:00: 00 09-29 04:59 :00 No [id number] 40mg Take 1 tablet by mouth in the morning for 15 days. [facility] dexAMETHaso ne (DECADRON) tablet 6 mg 08-22 07:15: 00 08-22 06:06 :00 No 6mg 6 mg, Oral, ONCE, 1 dose, On [place] 08/22/23 at 0115, Routine [facility] benzonatate (TESSALON PERLES) capsule 200 mg 08-22 07:00: 00 08-22 06:06 :00 No 200mg 200 mg, Oral, ONCE NOW, 1 dose, On [place] 08/22/23 at 0100, NOÉ [facility] benzonatate 200 mg capsule 08-22 00:00: 00 12-03 00:00 :00 No [id number] 200mg Take 1 capsule by mouth 3 (three) times daily as needed for Cough. [facility] loratadine 10 mg tablet 08-22 00:00: 00 12-03 00:00 :00 No [id number] 10mg Take 1 tablet by mouth in the morning. [facility] cefdinir 300 mg capsule 08-22 00:00: 00 09-02 05:59 :00 No [id number] 300mg Take 1 capsule by mouth in the morning and 1 capsule in the evening. Do all this for 10 days. [facility] dexAMETHaso ne 4 mg tablet 08-22 00:00: 00 08-28 05:59 :00 No [id number] 4mg Take 1 tablet by mouth in the morning and 1 tablet in the evening. Do all this for 5 days. [facility] ibuprofen (IBU) tablet 600 mg 2022-07 00:45: 00 06-24 00:48 :00 No 600mg 600 mg, Oral, ONCE, 1 dose, On 06/23/23 at 1845, NOÉ [facility] methylPREDN ISolone 4 mg tablets 04-13 00:00: 00 Yes [id number] Take by mouth SEE-INSTRU CTIONS. follow package directions [facility] azithromyci n (ZITHROMAX Z-BEAR) 250 mg tablet 04-13 00:00: 00 12-03 00:00 :00 No [id number] 250mg Take 1 tablet by mouth SEE-INSTRU CTIONS. Take 500 mg day 1, then 250 mg days 2 to 5. [facility] loratadine 10 mg tablet 04-13 00:00: 00 12-03 00:00 :00 No [id number] 10mg Take 1 tablet by mouth at bedtime as needed for Allergies. [facility] benzonatate 100 mg capsule 04-13 00:00: 00 12-03 00:00 :00 No [id number] 100mg Take 1 capsule by mouth 3 (three) times daily as needed for Cough. [facility] amoxicillin 500 mg capsule 6-25 00:00: 00 01-24 04:59 :00 No [id number] 500mg Take 1 capsule by mouth in the morning and 1 capsule in the evening. Do all this for 10 days. [facility] predniSONE (DELTASONE) tablet 30 mg 07-25 06:12: 00 07-25 06:21 :00 No 30mg 30 mg, Oral, ONCE, 1 dose, On Sat07/25/22 at 0015, NOÉ [facility] doxycycline hyclate (Vibramycin ) capsule 100 mg 07-25 06:12: 07-25 06:21 :00 No 100mg 100 mg, Oral, ONCE, 1 dose, On Sat07/25/22 at 0015, NOÉ
Re ason for Anti-Infec tive: Documented Infection< br>Documen mariya Infection Site: Respirator y
Durat ion of Therapy: Other (see Comments) [facility] doxycycline hyclate 100 mg capsule 07-25 00:00: 00 12-03 00:00 :00 No [id number] 100mg Take 1 capsule by mouth in the morning and 1 capsule in the evening. [facility] albuterol 90 mcg/actuati on inhaler 07-25 00:00: 00 12-03 00:00 :00 No [id number] 2{puff} Inhale 2 Puffs every 4 (four) hours as needed for Wheezing, Shortness of Breath or Chest tightness. [facility] benzonatate 100 mg capsule 07-25 00:00: 00 04-13 00:00 :00 No [id number] 100mg Take 1 capsule by mouth 3 (three) times daily as needed for Cough. [facility] predniSONE 10 mg tablet 07-25 00:00: 00 07-29 05:59 :00 No [id number] 30mg Take 3 tablets by mouth in the morning for 3 days. [facility] acetaminoph en (TYLENOL) tablet 650 mg 03-05 22:45: 00 03-05 22:43 :00 No 650mg 650 mg, Oral, ONCE, 1 dose, On 03/05/22 at 1745, NOÉ [facility] ibuprofen (IBU) tablet 600 mg 01-16 18:45: 00 01-16 18:48 :00 No 600mg 600 mg, Oral, ONCE, 1 dose, On Tu01/16/22 at 1345, NOÉ [facility] montelukast 10 mg tablet 01-11 00:00: 00 12-03 00:00 :00 No [id number] 10mg Take 1 tablet by mouth every 24 (twenty-fo ur) hours as needed (symptoms) . [facility] methylPREDN ISolone 4 mg tablets 01-11 00:00: 00 04-13 00:00 :00 No [id number] Take by mouth SEE-INSTRU CTIONS. follow package directions [facility] benzonatate 100 mg capsule 01-11 00:00: 00 04-13 00:00 :00 No [id number] 100mg Take 1 capsule by mouth 3 (three) times daily as needed for Cough. [facility] doxycycline hyclate 100 mg capsule 01-11 00:00: 00 01-22 04:59 :00 No [id number] 100mg Take 1 capsule by mouth 2 (two) times daily for 10 days. [facility] ondansetron (ZOFRAN (PF)) injection 4 mg 11-03 03:00: 00 11-03 02:03 :00 No 4mg 4 mg, Slow IV Push, ONCE, 1 dose, On [place] 11/02/21 at 2200, NOÉ [facility] ketorolac (TORADOL) injection 15 mg 15 03:00: 00 11-03 02:04 :00 No 15mg 15 mg, Slow IV Push, ONCE, 1 dose, On [place] 11/02/21 at 2200, NOÉ [facility] lactulose 10 gram/15 mL oral solution 11-02 00:00: 00 12-03 00:00 :00 No [id number] 30mL Take 30 mL by mouth 3 (three) times daily as needed for Constipati on or For bowel movement. [facility] cefTRIAXone (ROCEPHIN) injection 500 mg 10-23 16:45: 00 10-23 16:16 :00 No 500mg 500 mg, Intramuscu lar, ONCE, 1 dose, On 10/23/21 at 1145, NOÉ
Re ason for Anti-Infec tive: Documented Infection< br>Documen mariya Infection Site: Pelvic
Duration of Therapy: Other (see Comments) [facility] doxycycline hyclate 100 mg capsule 10-23 00:00: 00 10-31 04:59 :00 No [id number] 100mg Take 1 capsule by mouth 2 (two) times daily for 7 days. [facility] cefpodoxime 100 mg tablet 10-16 00:00: 00 10-24 04:59 :00 No [id number] 100mg Take 1 tablet by mouth 2 (two) times daily for 7 days. [facility] predniSONE (DELTASONE) tablet 40 mg 10-10 04:00: 00 10-10 02:51 :00 No 40mg 40 mg, Oral, ONCE, 1 dose, On Sat10/09/21 at 2300, NOÉ [facility] dextrometho rphan-guaif enesin 10-100 mg/5 mL solution 10-09 00:00: 00 12-03 00:00 :00 No [id number] 10mL Take 10 mL by mouth every 6 (six) hours as needed for Cough. [facility] fluticasone propionate 50 mcg/actuati on nasal spray 10-09 00:00: 00 12-03 00:00 :00 No [id number] 2{spray } Use 2 Sprays in each nostril daily. [facility] albuterol 90 mcg/actuati on inhaler 10-09 00:00: 00 12-03 00:00 :00 No [id number] 2{puff} Inhale 2 Puffs every 4 (four) hours as needed for Wheezing or Shortness of Breath. [facility] predniSONE 20 mg tablet 10-09 00:00: 00 12-03 00:00 :00 No [id number] 60mg Take 3 tablets by mouth every morning. [facility] benzonatate 100 mg capsule 10-09 00:00: 00 04-13 00:00 :00 No [id number] 100mg Take 1 capsule by mouth 3 (three) times daily as needed for Cough. [facility] predniSONE (DELTASONE) tablet 40 mg 2020-07 05:45: 00 07-07 04:42 :00 No 40mg 40 mg, Oral, ONCE, 1 dose, On [place] 07/06/21 at 2345, NOÉ [facility] predniSONE 20 mg tablet 2020-07 00:00: 00 07-11 05:59 :00 No [id number] 20mg Take 1 tablet by mouth 2 (two) times daily for 4 days. [facility] maalox:diph enhydrAMINE :lidocaine 2 % viscous 1:1:1 (FIRST-MOUT HWASH BLM) oral suspension 15 mL 2020-07 02:45: 00 06-13 01:42 :00 No 15mL 15 mL, Oral, ONCE, 1 dose, On Sat06/12/21 at 2045, NOÉ [facility] dicyclomine (BENTYL) tablet 20 mg 2020-07 02:45: 00 06-13 01:45 :00 No 20mg 20 mg, Oral, ONCE, 1 dose, On Sat06/12/21 at 2045, NOÉ [facility] NaCl 0.9% (NS) bolus infusion 1,000 mL 2020-07 02:30: 00 06-13 03:00 :00 No 1000mL at 999 mL/hr, 1,000 mL, IV Infusion, ONCE, 1 dose, On 06/12/21 at 2030, NOÉ [facility] sucralfate 1 gram tablet 2020-07 00:00: 00 12-03 00:00 :00 No [id number] 1g Take 1 tablet by mouth before meals and at bedtime. [facility] dicyclomine 20 mg tablet 2020-07 00:00: 00 12-03 00:00 :00 No [id number] 20mg Take 1 tablet by mouth 4 (four) times daily. [facility] ondansetron 4 mg disintegrat ing tablet 2020-07 00:00: 00 12-03 00:00 :00 No [id number] 4mg Take 1 tablet by mouth every 4 (four) hours as needed for Nausea and Vomiting (N/V). [facility] montelukast (SINGULAIR) 10 mg tablet 03-09 14:25: 35 03-09 00:00 :00 No 10mg Take 10 mg by mouth. [facility] benzonatate 200 mg capsule 03-09 00:00: 00 04-13 00:00 :00 No [id number] 200mg Take 1 capsule by mouth 3 (three) times daily as needed for Cough. [facility] methylPREDN ISolone (MEDROL, BEAR,) 4 mg tablets 03-09 00:00: 00 04-13 00:00 :00 No [id number] Take by mouth SEE-INSTRU CTIONS. follow package directions [facility] dexamethaso ne (DECADRON PHOSPHATE) injection 10 mg 12-09 16:45: 00 12-09 16:18 :00 No 10mg 10 mg, Oral, ONCE, 1 dose, Sat12/09/20 at 1145, Routine [facility] benzonatate (TESSALON PERLES) capsule 100 mg 12-09 16:45: 00 12-09 16:13 :00 No 100mg 100 mg, Oral, ONCE, 1 dose, 12/09/20 at 1145, Routine [facility] albuterol (VENTOLIN) inhaler 2 Puff 12-09 16:45: 00 12-09 15:54 :00 No 2{puff} 2 Puff, Inhalation , ONCE, 1 dose, 12/09/20 at 1145, NOÉ
Is this order for a patient with suspected or confirmed COVID-19 infection? Yes [facility] albuterol 90 mcg/actuati on inhaler 12-09 00:00: 00 03-09 00:00 :00 No [id number] 2{puff} Inhale 2 Puffs every 4 (four) hours as needed for Wheezing or Shortness of Breath. [facility] benzonatate 100 mg capsule 12-09 00:00: 00 03-09 00:00 :00 No [id number] 100mg Take 1 capsule by mouth 3 (three) times daily as needed for Cough. [facility] ketorolac (TORADOL) injection 30 mg 2019-07 17:00: 00 07-16 16:06 :00 No 30mg 30 mg, Slow IV Push, ONCE, 1 dose, 07/16/20 at 1100, Routine
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 [facility] methylPREDN ISolone 4 mg tablets 2019-07 00:00: 00 03-09 00:00 :00 No [id number] Take by mouth SEE-INSTRU CTIONS. follow package directions [facility] albuterol 90 mcg/actuati on inhaler 2019-07 00:00: 00 03-09 00:00 :00 No [id number] 2{puff} Inhale 2 Puffs every 4 (four) hours as needed for Wheezing or Shortness of Breath. [facility] benzonatate 100 mg capsule 2019-07 2 00:00: 03-09 00:00 :00 No [id number] 100mg Take 1 capsule by mouth 3 (three) times daily as needed for Cough. [facility] ondansetron 4 mg disintegrat ing tablet 2019-07 00:00: 00 03-09 00:00 :00 No [id number] 4mg Take 1 tablet by mouth every 4 (four) hours as needed for Nausea and Vomiting (N/V). [facility] montelukast (SINGULAIR) 10 mg tablet 2019-07 00:00: 00 03-09 00:00 :00 No [id number] 10mg Take 1 tablet by mouth daily. [facility] loratadine 10 mg tablet 01-27 00:00: 00 03-09 00:00 :00 No [id number] 10mg Take 1 tablet by mouth daily. [facility] montelukast 10 mg tablet 01-27 00:00: 00 03-09 00:00 :00 No [id number] 10mg Take 1 tablet by mouth daily. [facility] benzonatate 100 mg capsule 01-27 00:00: 00 03-09 00:00 :00 No [id number] 100mg Take 1 capsule by mouth 3 (three) times daily as needed for Cough. [facility] methylPREDN ISolone (MEDROL, BEAR,) 4 mg tablets 01-27 00:00: 00 07-11 00:00 :00 No [id number] Take by mouth SEE-INSTRU CTIONS. follow package directions [facility] ibuprofen 800 mg tablet 08-21 00:00: 00 03-09 00:00 :00 No [id number] 800mg Take 1 tablet by mouth every 8 (eight) hours as needed for Temp > 38.5 C (PAIN). [facility] benzonatate 200 mg capsule 08-21 00:00: 03-09 00:00 :00 No [id number] 200mg Take 1 capsule by mouth 3 (three) times daily as needed for Cough. [facility] benzonatate 100 mg capsule 2018-07 00:00: 00 03-09 00:00 :00 No [id number] 100mg Take 1 capsule by mouth 3 (three) times daily as needed for Cough. [facility] levoFLOXaci n (LEVAQUIN) tablet 500 mg 02-17 03:15: 02-17 02:10 :00 No 500mg 500 mg, Oral, ONCE, 1 dose, Sat02/16/19 at 2215, NOÉ
Re ason for Anti-Infec tive: Documented Infection< br>Documen mariya Infection Site: Pelvic
Duration of Therapy: 10 days [facility] naproxen (NAPROSYN) tablet 500 mg 02-17 03:15: 02-17 02:10 :00 No 500mg 500 mg, Oral, ONCE, 1 dose, Sat02/16/19 at 2215, Routine [facility] naproxen (NAPROSYN) 500 mg tablet 02-16 00:00: 12-03 00:00 :00 No [id number] 500mg Take 1 tablet by mouth 2 (two) times daily with meals. [facility] levoFLOXaci n (LEVAQUIN) 500 mg tablet 02-16 00:00: 02-27 04:59 :00 No [id number] 500mg Take 1 tablet by mouth every 24 (twenty-fo ur) hours for 10 days. [facility] benzonatate 200 mg capsule 02-11 00:00: 00 Yes [id number] 200mg Take 1 capsule by mouth 3 (three) times daily as needed for Cough. [facility] traMADol (ULTRAM) 50 mg tablet 02-11 00:00: 00 12-03 00:00 :00 No [id number] 50mg Take 1 tablet by mouth every 6 (six) hours as needed for Pain (scale 7-10). [facility] sod chlor-bicar b-squeez bottle (NEILMED SINUS RINSE COMPLETE) [facility] [facility] 2017-07 00:00: 00 Yes 1{bottl e} Use 1 Bottle in each nostril 2 (two) times daily. Use in hot shower 1 hour before bedtime [facility] promethazin e-codeine 6.25-10 mg/5 mL syrup 2017-07 00:00: 00 12-03 00:00 :00 No 5mL Take 5 mL by mouth 4 (four) times daily as needed for Cough. [facility] sod chlor-bicar b-squeez bottle (NEILMED SINUS RINSE COMPLETE) [facility] 2017-07 00:00: 00 12-03 00:00 :00 No 1{bottl e} Use 1 Bottle in each nostril 2 (two) times daily. Use in hot shower 1 hour before bedtime [facility] ETODOLAC ORAL 01-16 02:31: 37 Yes 500mg Take 500 mg by mouth 2 (two) times daily. [facility] montelukast (SINGULAIR) 10 mg tablet 01-16 02:31: 37 Yes 10mg Take 10 mg by mouth. [facility] ETODOLAC ORAL 01-15 21:31: 37 12-03 00:00 :00 No 500mg Take 500 mg by mouth 2 (two) times daily. [facility] fluticasone (FLONASE ALLERGY RELIEF) 50 mcg/actuati on nasal spray 01-15 00:00: 00 12-03 00:00 :00 No 1{spray } Use 1 [place] in each nostril daily. [facility] loratadine 10 mg tablet 01-15 00:00: 00 03-09 00:00 :00 No 10mg Take 1 tablet by mouth daily. [facility] Omeprazole 20 mg Omeprazole 20 mg 20 00:00: 00 No 1{capsu le} QD Omeprazole 20 mg ondansetron (ZOFRAN ODT) 4 mg disintegrat ing tablet 2016-07 00:00: 00 03-09 00:00 :00 No 4mg Take 1 tablet by mouth every 8 (eight) hours as needed for Nausea and Vomiting (N/V). [facility] ibuprofen 600 mg tablet 2016-07 00:00: 00 03-09 00:00 :00 No 600mg Take 1 tablet by mouth every 6 (six) hours as needed for Pain (scale 4-6). [facility] miconazole 2 % cream 14 00:00: 00 Yes Apply to area(s) 2 (two) times daily. [facility] nystatin-tr iamcinolone (MYCOLOG) ointment 08-08 00:00: 00 12-03 00:00 :00 No Apply to area(s) 2 (two) times daily. [facility] Vitamin B Complex - Vitamin B Complex - No Vitamin B Complex - Immunizations Ordered Immunization Name Filled Immunization Name Date Status Comments Source Afluria (IIV4) - 3 years and older - SDS - 0.5mL Afluria (IIV4) - 3 years and older - SDS - 0.5mL 2020-08-09 15:55:00 Completed [facility] Afluria single dose Afluria single dose 15:55:00 Completed [facility] Afluria single dose Afluria single dose 15:55:00 Completed [facility] Afluria single dose Afluria single dose 15:55:00 Completed [facility] Afluria single dose Afluria single dose 15:55:00 Completed [facility] Afluria single dose Afluria single dose 15:55:00 Completed [facility] Afluria single dose Afluria single dose 15:55:00 Completed [facility] Afluria (IIV4) - 3 years and older - SDS - 0.5mL Afluria (IIV4) - 3 years and older - SDS - 0.5mL Unknown Completed [facility] Vital Signs Vital Name Observation Time Observation Value Comments S isaiah Systolic blood pressure 2024-06-14 06:55:00 128 mm[Hg] [facility] Diastolic blood pressure 2024-06-14 06:55:00 80 mm[Hg] [facility] Heart rate 2024-06-14 06:55:00 66 /min [facility] Body temperature 2024-06-14 06:55:00 36.89 Madeleine [facility] Respiratory rate 2024-06-14 06:55:00 17 /min [facility] Oxygen saturation in Arterial blood by Pulse oximetry 2024-06-14 06:55:00 100 /min [facility] Body height 2024-06-14 04:12:00 180.3 cm [facility] Body weight 2024-06-14 04:12:00 74.481 kg [facility] BMI 2024-06-14 04:12:00 22.90 kg/m2 [facility] height 2024-06-08 15:15:00 72 [in_i] Commo n [facility] weight 2024-06-08 15:15:00 166.2 [lb_av] Co mmon [facility] temperature 2024-06-08 15:15:00 97.4 [degF] Com mon [facility] bmi 2024-06-08 15:15:00 22.54 kg/m2 Comm on [facility] oximetry 2024-06-08 15:15:00 98 % Commo n [facility] respiratory rate 2024-06-08 15:15:00 16 /min [facility] blood pressure systolic 2024-06-08 15:15:00 116 mm[Hg] [facility] blood pressure diastolic 2024-06-08 15:15:00 58 mm[Hg] [facility] Systolic blood pressure 2024-06-02 15:13:00 146 mm[Hg] [facility] Diastolic blood pressure 2024-06-02 15:13:00 87 mm[Hg] [facility] Heart rate 2024-06-02 15:13:00 54 /min [facility] Respiratory rate 2024-06-02 15:13:00 15 /min [facility] Oxygen saturation in Arterial blood by Pulse oximetry 2024-06-02 15:13:00 100 /min [facility] Body temperature 2024-06-02 12:48:00 36.5 Madeleine [facility] Body height 2024-06-02 12:48:00 182.9 cm [facility] Body weight 2024-06-02 12:48:00 86.183 kg [facility] BMI 2024-06-02 12:48:00 25.77 kg/m2 [facility] Systolic blood pressure 2024-04-08 00:27:00 138 mm[Hg] [facility] Diastolic blood pressure 2024-04-08 00:27:00 76 mm[Hg] [facility] Heart rate 2024-04-08 00:27:00 73 /min [facility] Body temperature 2024-04-08 00:27:00 36.5 Madeleine [facility] Respiratory rate 2024-04-08 00:27:00 18 /min [facility] Body height 2024-04-08 00:27:00 182.9 cm [facility] Body weight 2024-04-08 00:27:00 86.183 kg [facility] BMI 2024-04-08 00:27:00 25.77 kg/m2 [facility] Oxygen saturation in Arterial blood by Pulse oximetry 2024-04-08 00:27:00 100 /min [facility] Systolic blood pressure 2024-03-23 16:40:00 150 mm[Hg] [facility] Diastolic blood pressure 2024-03-23 16:40:00 79 mm[Hg] [facility] Heart rate 2024-03-23 16:40:00 68 /min [facility] Body temperature 2024-03-23 16:40:00 36.5 Madeleine [facility] Respiratory rate 2024-03-23 16:40:00 18 /min [facility] Body height 2024-03-23 16:40:00 180.3 cm [facility] Body weight 2024-03-23 16:40:00 77.111 kg [facility] BMI 2024-03-23 16:40:00 23.71 kg/m2 [facility] Oxygen saturation in Arterial blood by Pulse oximetry 2024-03-23 16:40:00 98 /min [facility] Systolic blood pressure 2023-12-05 03:20:00 144 mm[Hg] [facility] Diastolic blood pressure 2023-12-05 03:20:00 81 mm[Hg] [facility] Heart rate 2023-12-05 03:20:00 61 /min Unive [facility] Body temperature 2023-12-05 03:20:00 36.56 Madeleine [facility] Respiratory rate 2023-12-05 03:20:00 15 /min [facility] Oxygen saturation in Arterial blood by Pulse oximetry 2023-12-05 03:20:00 99 /min [facility] Body height 2023-12-05 00:04:00 200.7 cm [facility] Body weight 2023-12-05 00:04:00 76.204 kg [facility] BMI 2023-12-05 00:04:00 18.93 kg/m2 [facility] Systolic blood pressure 2023-09-15 01:36:00 140 mm[Hg] [facility] Diastolic blood pressure 2023-09-15 01:36:00 72 mm[Hg] [facility] Heart rate 2023-09-15 01:36:00 55 /min [facility] Body temperature 2023-09-15 01:36:00 36.56 Madeleine [facility] Respiratory rate 2023-09-15 01:36:00 16 /min [facility] Oxygen saturation in Arterial blood by Pulse oximetry 2023-09-15 01:36:00 100 /min [facility] Body height 2023-09-14 22:05:00 180.3 cm [facility] Body weight 2023-09-14 22:05:00 79.379 kg [facility] BMI 2023-09-14 22:05:00 24.41 kg/m2 [facility] Systolic blood pressure 2023-08-22 06:11:00 116 mm[Hg] [facility] Diastolic blood pressure 2023-08-22 06:11:00 82 mm[Hg] [facility] Heart rate 2023-08-22 06:11:00 57 /min [facility] Body temperature 2023-08-22 06:11:00 36.56 Madeleine [facility] Respiratory rate 2023-08-22 06:11:00 14 /min [facility] Oxygen saturation in Arterial blood by Pulse oximetry 2023-08-22 06:11:00 100 /min [facility] Body height 2023-08-22 04:07:00 180.3 cm [facility] Body weight 2023-08-22 04:07:00 81.647 kg [facility] BMI 2023-08-22 04:07:00 25.10 kg/m2 [facility] height 2023-07-03 14:20:00 72 [in_i] Commo n [facility] weight 2023-07-03 14:20:00 170.4 [lb_av] Co mmon [facility] temperature 2023-07-03 14:20:00 97.9 [degF] Com mon [facility] bmi 2023-07-03 14:20:00 23.11 kg/m2 Comm on [facility] oximetry 2023-07-03 14:20:00 100 % Commo n [facility] respiratory rate 2023-07-03 14:20:00 16 /min Common [facility] blood pressure systolic 2023-07-03 14:20:00 126 mm[Hg] Common [facility] blood pressure diastolic 2023-07-03 14:20:00 71 mm[Hg] [facility] Systolic blood pressure 2023-06-24 00:24:00 128 mm[Hg] [facility] Diastolic blood pressure 2023-06-24 00:24:00 72 mm[Hg] [facility] Heart rate 2023-06-24 00:24:00 62 /min [facility] Body temperature 2023-06-24 00:24:00 36.61 Madeleine [facility] Respiratory rate 2023-06-24 00:24:00 20 /min [facility] Body height 2023-06-24 00:24:00 172.7 cm [facility] Body weight 2023-06-24 00:24:00 81.647 kg [facility] BMI 2023-06-24 00:24:00 27.37 kg/m2 [facility] Oxygen saturation in Arterial blood by Pulse oximetry 2023-06-24 00:24:00 100 /min [facility] Systolic blood pressure 2023-04-13 16:13:00 130 mm[Hg] [facility] Diastolic blood pressure 2023-04-13 16:13:00 71 mm[Hg] [facility] Heart rate 2023-04-13 16:13:00 61 /min [facility] Body temperature 2023-04-13 16:13:00 36.72 Madeleine [facility] Respiratory rate 2023-04-13 16:13:00 18 /min [facility] Body height 2023-04-13 16:13:00 182.9 cm [facility] Body weight 2023-04-13 16:13:00 80.74 kg [facility] BMI 2023-04-13 16:13:00 24.14 kg/m2 [facility] Oxygen saturation in Arterial blood by Pulse oximetry 2023-04-13 16:13:00 99 /min [facility] Systolic blood pressure 2023-01-13 18:38:00 156 mm[Hg] [facility] Diastolic blood pressure 2023-01-13 18:38:00 72 mm[Hg] [facility] Heart rate 2023-01-13 18:38:00 66 /min [facility] Body temperature 2023-01-13 18:38:00 36.72 Madeleine [facility] Respiratory rate 2023-01-13 18:38:00 22 /min [facility] Body height 2023-01-13 18:38:00 182.9 cm [facility] Body weight 2023-01-13 18:38:00 80.74 kg [facility] BMI 2023-01-13 18:38:00 24.14 kg/m2 [facility] Oxygen saturation in Arterial blood by Pulse oximetry 2023-01-13 18:38:00 100 /min [facility] Systolic blood pressure 2022-07-25 04:18:00 157 mm[Hg] [facility] Diastolic blood pressure 2022-07-25 04:18:00 71 mm[Hg] [facility] Heart rate 2022-07-25 04:18:00 73 /min [facility] Body temperature 2022-07-25 04:18:00 36.5 Madeleine [facility] Respiratory rate 2022-07-25 04:18:00 18 /min [facility] Body height 2022-07-25 04:18:00 180.3 cm [facility] Body weight 2022-07-25 04:18:00 67.132 kg [facility] BMI 2022-07-25 04:18:00 20.64 kg/m2 [facility] Oxygen saturation in Arterial blood by Pulse oximetry 2022-07-25 04:18:00 100 /min [facility] height 2022-05-18 16:00:00 72 [in_i] Commo n [facility] weight 2022-05-18 16:00:00 173.8 [lb_av] Co mmon [facility] temperature 2022-05-18 16:00:00 97.9 [degF] Com mon [facility] bmi 2022-05-18 16:00:00 23.57 kg/m2 Comm on [facility] oximetry 2022-05-18 16:00:00 98 % Commo n [facility] respiratory rate 2022-05-18 16:00:00 15 /min [facility] blood pressure systolic 2022-05-18 16:00:00 126 mm[Hg] [facility] blood pressure diastolic 2022-05-18 16:00:00 59 mm[Hg] [facility] Systolic blood pressure 2022-03-05 21:34:00 119 mm[Hg] [facility] Diastolic blood pressure 2022-03-05 21:34:00 70 mm[Hg] [facility] Heart rate 2022-03-05 21:34:00 94 /min [facility] Body temperature 2022-03-05 21:34:00 37.89 Madeleine [facility] Respiratory rate 2022-03-05 21:34:00 18 /min [facility] Body weight 2022-03-05 21:34:00 68.04 kg [facility] BMI 2022-03-05 21:34:00 17.33 kg/m2 [facility] Oxygen saturation in Arterial blood by Pulse oximetry 2022-03-05 21:34:00 98 /min [facility] height 2022-02-13 16:40:00 72 [in_i] Commo n [facility] weight 2022-02-13 16:40:00 162 [lb_av] Comm on [facility] temperature 2022-02-13 16:40:00 97.2 [degF] Com mon [facility] bmi 2022-02-13 16:40:00 21.97 kg/m2 Comm on [facility] oximetry 2022-02-13 16:40:00 100 % Commo n [facility] respiratory rate 2022-02-13 16:40:00 19 /min [facility] blood pressure systolic 2022-02-13 16:40:00 116 mm[Hg] [facility] blood pressure diastolic 2022-02-13 16:40:00 67 mm[Hg] [facility] Systolic blood pressure 2022-01-23 00:56:00 140 mm[Hg] [facility] Diastolic blood pressure 2022-01-23 00:56:00 70 mm[Hg] [facility] Heart rate 2022-01-23 00:56:00 69 /min [facility] Body temperature 2022-01-23 00:56:00 36.89 Madeleine [facility] Respiratory rate 2022-01-23 00:56:00 16 /min [facility] Oxygen saturation in Arterial blood by Pulse oximetry 2022-01-23 00:56:00 98 /min [facility] Systolic blood pressure 2022-01-16 18:36:00 125 mm[Hg] [facility] Diastolic blood pressure 2022-01-16 18:36:00 59 mm[Hg] [facility] Heart rate 2022-01-16 18:36:00 85 /min [facility] Body temperature 2022-01-16 18:36:00 36.44 Madeleine [facility] Respiratory rate 2022-01-16 18:36:00 20 /min [facility] Body height 2022-01-16 18:36:00 198.1 cm [facility] Body weight 2022-01-16 18:36:00 68.04 kg [facility] BMI 2022-01-16 18:36:00 17.33 kg/m2 [facility] Oxygen saturation in Arterial blood by Pulse oximetry 2022-01-16 18:36:00 99 /min [facility] Diastolic blood pressure 2022-01-11 13:47:00 60 mm[Hg] [facility] Heart rate 2022-01-11 13:47:00 73 /min [facility] Body temperature 2022-01-11 13:47:00 36.39 Madeleine [facility] Respiratory rate 2022-01-11 13:47:00 16 /min [facility] Body height 2022-01-11 13:47:00 182.9 cm [facility] Body weight 2022-01-11 13:47:00 67.132 kg [facility] BMI 2022-01-11 13:47:00 20.07 kg/m2 [facility] Oxygen saturation in Arterial blood by Pulse oximetry 2022-01-11 13:47:00 98 /min [facility] Systolic blood pressure 2022-01-11 13:47:00 125 mm[Hg] [facility] Systolic blood pressure 2021-11-03 03:41:39 125 mm[Hg] [facility] Diastolic blood pressure 2021-11-03 03:41:39 64 mm[Hg] [facility] Heart rate 2021-11-03 03:41:39 60 /min [facility] Respiratory rate 2021-11-03 03:41:39 18 /min [facility] Oxygen saturation in Arterial blood by Pulse oximetry 2021-11-03 03:41:39 99 /min [facility] Body temperature 2021-11-02 23:56:00 37.06 Madeleine [facility] Body height 2021-11-02 23:56:00 188 cm [facility] Body weight 2021-11-02 23:56:00 63.504 kg [facility] BMI 2021-11-02 23:56:00 17.97 kg/m2 [facility] Systolic blood pressure 2021-10-23 15:32:00 115 mm[Hg] [facility] Diastolic blood pressure 2021-10-23 15:32:00 83 mm[Hg] [facility] Heart rate 2021-10-23 15:32:00 82 /min [facility] Body temperature 2021-10-23 15:32:00 36.72 Madeleine [facility] Respiratory rate 2021-10-23 15:32:00 15 /min [facility] Body height 2021-10-23 15:32:00 185.4 cm [facility] Body weight 2021-10-23 15:32:00 63.504 kg [facility] BMI 2021-10-23 15:32:00 18.47 kg/m2 [facility] Oxygen saturation in Arterial blood by Pulse oximetry 2021-10-23 15:32:00 96 /min [facility] Systolic blood pressure 2021-10-16 20:18:00 138 mm[Hg] [facility] Diastolic blood pressure 2021-10-16 20:18:00 68 mm[Hg] [facility] Heart rate 2021-10-16 20:18:00 68 /min [facility] Respiratory rate 2021-10-16 20:18:00 18 /min [facility] Oxygen saturation in Arterial blood by Pulse oximetry 2021-10-16 20:18:00 100 /min [facility] Body temperature 2021-10-16 17:53:00 36.44 Madeleine [facility] Body weight 2021-10-16 17:53:00 63.504 kg [facility] BMI 2021-10-16 17:53:00 19.53 kg/m2 [facility] Systolic blood pressure 2021-10-10 02:45:38 122 mm[Hg] [facility] Diastolic blood pressure 2021-10-10 02:45:38 73 mm[Hg] [facility] Heart rate 2021-10-10 02:45:38 98 /min [facility] Body temperature 2021-10-10 02:45:38 36.28 Madeleine [facility] Respiratory rate 2021-10-10 02:45:38 18 /min [facility] Oxygen saturation in Arterial blood by Pulse oximetry 2021-10-10 02:45:38 100 /min [facility] Body height 2021-10-10 00:46:00 180.3 cm [facility] Body weight 2021-10-10 00:46:00 58.968 kg [facility] BMI 2021-10-10 00:46:00 18.13 kg/m2 [facility] height 2021-08-29 16:20:00 74 [in_i] [facility] weight 2021-08-29 16:20:00 162.6 [lb_av] Co mmon [facility] temperature 2021-08-29 16:20:00 97.9 [degF] Com mon [facility] bmi 2021-08-29 16:20:00 20.87 kg/m2 Comm on [facility] oximetry 2021-08-29 16:20:00 98 % Commo n [facility] respiratory rate 2021-08-29 16:20:00 15 /min Common [facility] blood pressure systolic 2021-08-29 16:20:00 122 mm[Hg] Common [facility] blood pressure diastolic 2021-08-29 16:20:00 62 mm[Hg] [facility] Systolic blood pressure 2021-08-02 23:23:00 124 mm[Hg] [facility] Diastolic blood pressure 2021-08-02 23:23:00 72 mm[Hg] [facility] Heart rate 2021-08-02 23:23:00 76 /min [facility] Body temperature 2021-08-02 23:23:00 37.28 Madeleine [facility] Respiratory rate 2021-08-02 23:23:00 18 /min [facility] Body weight 2021-08-02 23:23:00 73.936 kg [facility] BMI 2021-08-02 23:23:00 20.37 kg/m2 [facility] Oxygen saturation in Arterial blood by Pulse oximetry 2021-08-02 23:23:00 99 /min [facility] Systolic blood pressure 2021-07-07 03:35:00 114 mm[Hg] [facility] Diastolic blood pressure 2021-07-07 03:35:00 64 mm[Hg] [facility] Heart rate 2021-07-07 03:35:00 92 /min [facility] Body temperature 2021-07-07 03:35:00 37.11 Madeleine [facility] Respiratory rate 2021-07-07 03:35:00 16 /min [facility] Body height 2021-07-07 03:35:00 190.5 cm [facility] Body weight 2021-07-07 03:35:00 74.027 kg [facility] BMI 2021-07-07 03:35:00 20.40 kg/m2 [facility] Oxygen saturation in Arterial blood by Pulse oximetry 2021-07-07 03:35:00 97 /min [facility] Systolic blood pressure 2021-06-13 03:01:00 142 mm[Hg] [facility] Diastolic blood pressure 2021-06-13 03:01:00 80 mm[Hg] [facility] Heart rate 2021-06-13 03:01:00 54 /min [facility] Respiratory rate 2021-06-13 03:01:00 16 /min [facility] Oxygen saturation in Arterial blood by Pulse oximetry 2021-06-13 03:01:00 100 /min [facility] Body temperature 2021-06-13 01:11:00 37.22 Madeleine [facility] Body height 2021-06-13 01:11:00 180.3 cm [facility] Body weight 2021-06-13 01:11:00 80.74 kg [facility] BMI 2021-06-13 01:11:00 24.83 kg/m2 [facility] Systolic blood pressure 2021-06-10 23:12:00 114 mm[Hg] [facility] Diastolic blood pressure 2021-06-10 23:12:00 81 mm[Hg] [facility] Heart rate 2021-06-10 23:12:00 73 /min [facility] Body temperature 2021-06-10 23:12:00 37.11 Madeleine [facility] Respiratory rate 2021-06-10 23:12:00 16 /min [facility] Body height 2021-06-10 23:12:00 180 cm [facility] Body weight 2021-06-10 23:12:00 70.308 kg [facility] BMI 2021-06-10 23:12:00 21.70 kg/m2 [facility] Oxygen saturation in Arterial blood by Pulse oximetry 2021-06-10 23:12:00 99 /min [facility] height 2021-05-26 10:00:00 74 [in_i] Commo n [facility] weight 2021-05-26 10:00:00 166.6 [lb_av] Co mmon [facility] temperature 2021-05-26 10:00:00 96.7 [degF] Com mon [facility] bmi 2021-05-26 10:00:00 21.39 kg/m2 Comm on [facility] oximetry 2021-05-26 10:00:00 98 % Commo n [facility] respiratory rate 2021-05-26 10:00:00 16 /min [facility] blood pressure systolic 2021-05-26 10:00:00 128 mm[Hg] [facility] blood pressure diastolic 2021-05-26 10:00:00 65 mm[Hg] [facility] Systolic blood pressure 2021-03-09 13:01:00 134 mm[Hg] [facility] Diastolic blood pressure 2021-03-09 13:01:00 73 mm[Hg] [facility] Heart rate 2021-03-09 13:01:00 76 [facility] 2021-03-09 13:01:00 36.39 Madeleine [facility] Respiratory rate 2021-03-09 13:01:00 18 /min [facility] Body weight 2021-03-09 13:01:00 77.111 kg [facility] BMI 2021-03-09 13:01:00 21.25 kg/m2 [facility] Oxygen saturation in Arterial blood by Pulse oximetry 2021-03-09 13:01:00 96 /min [facility] 2021-02-23 09:20:00 21.57 kg/m2 Comm on [facility] oximetry 2021-02-23 09:20:00 99 % Commo n [facility] respiratory rate 2021-02-23 09:20:00 16 /min Common [facility] blood pressure systolic 2021-02-23 09:20:00 131 mm[Hg] [facility] blood pressure diastolic 2021-02-23 09:20:00 61 mm[Hg] [facility] height 2021-02-23 09:20:00 74 [in_i] Commo n [facility] weight 2021-02-23 09:20:00 168.0 [lb_av] Co mmon [facility] temperature 2021-02-23 09:20:00 97.2 [degF] Com mon [facility] Systolic blood pressure 2020-12-20 03:00:00 152 mm[Hg] [facility] Diastolic blood pressure 2020-12-20 03:00:00 61 mm[Hg] [facility] Heart rate 2020-12-20 03:00:00 63 /min [facility] Respiratory rate 2020-12-20 03:00:00 16 /min [facility] Oxygen saturation in Arterial blood by Pulse oximetry 2020-12-20 03:00:00 97 /min [facility] Body temperature 2020-12-20 00:28:00 37.61 Madeleine [facility] Body height 2020-12-20 00:28:00 190.5 cm [facility] Body weight 2020-12-20 00:28:00 77.111 kg [facility] BMI 2020-12-20 00:28:00 21.25 kg/m2 [facility] Systolic blood pressure 2020-12-09 16:00:00 128 mm[Hg] [facility] Diastolic blood pressure 2020-12-09 16:00:00 74 mm[Hg] [facility] Heart rate 2020-12-09 16:00:00 58 /[facility] Respiratory rate 2020-12-09 16:00:00 16 /min [facility] Oxygen saturation in Arterial blood by Pulse oximetry 2020-12-09 16:00:00 99 /min [facility] Body temperature 2020-12-09 15:02:00 36.5 Madeleine [facility] Body weight 2020-12-09 15:02:00 74.844 kg [facility] BMI 2020-12-09 15:02:00 22.38 kg/m2 [facility] Systolic blood pressure 2020-09-02 21:51:34 134 mm[Hg] [facility] Diastolic blood pressure 2020-09-02 21:51:34 76 mm[Hg] [facility] Heart rate 2020-09-02 21:51:34 52 /min [facility] Respiratory rate 2020-09-02 21:51:34 16 /min [facility] Oxygen saturation in Arterial blood by Pulse oximetry 2020-09-02 21:51:34 99 /min [facility] Body temperature 2020-09-02 20:22:00 37.11 Madeleine [facility] Body height 2020-09-02 20:22:00 182.9 cm [facility] Body weight 2020-09-02 20:22:00 74.844 kg [facility] BMI 2020-09-02 20:22:00 22.38 kg/m2 [facility] Systolic blood pressure 2020-08-26 20:02:00 128 mm[Hg] [facility] Diastolic blood pressure 2020-08-26 20:02:00 61 mm[Hg] [facility] Heart rate 2020-08-26 20:02:00 52 /min [facility] Respiratory rate 2020-08-26 20:02:00 17 /min [facility] Oxygen saturation in Arterial blood by Pulse oximetry 2020-08-26 20:02:00 100 /min [facility] Body temperature 2020-08-26 18:06:00 36.44 Madeleine [facility] Body height 2020-08-26 18:06:00 188 cm [facility] Body weight 2020-08-26 18:06:00 81.647 kg [facility] BMI 2020-08-26 18:06:00 23.11 kg/m2 [facility] Systolic blood pressure 2020-07-16 16:00:00 135 mm[Hg] [facility] Diastolic blood pressure 2020-07-16 16:00:00 75 mm[Hg] [facility] Heart rate 2020-07-16 16:00:00 66 /min [facility] Respiratory rate 2020-07-16 16:00:00 19 /min [facility] Oxygen saturation in Arterial blood by Pulse oximetry 2020-07-16 16:00:00 98 /min [facility] Body temperature 2020-07-16 15:33:00 36.39 Madeleine [facility] Body weight 2020-07-16 15:33:00 81.647 kg [facility] BMI 2020-07-16 15:33:00 22.50 kg/m2 [facility] Systolic blood pressure 2020-07-11 23:16:00 149 mm[Hg] [facility] Diastolic blood pressure 2020-07-11 23:16:00 73 mm[Hg] [facility] Heart rate 2020-07-11 23:16:00 66 /min [facility] Body temperature 2020-07-11 23:16:00 36.83 Madeleine [facility] Respiratory rate 2020-07-11 23:16:00 20 /min [facility] Body weight 2020-07-11 23:16:00 81.647 kg [facility] BMI 2020-07-11 23:16:00 22.50 kg/m2 [facility] Oxygen saturation in Arterial blood by Pulse oximetry 2020-07-11 23:16:00 100 /min [facility] Body weight 2020-06-26 19:06:00 81.647 kg [facility] BMI 2020-06-26 19:06:00 22.50 kg/m2 [facility] Systolic blood pressure 2020-06-26 19:03:00 134 mm[Hg] [facility] Diastolic blood pressure 2020-06-26 19:03:00 64 mm[Hg] [facility] Heart rate 2020-06-26 19:03:00 70 /min [facility] Body temperature 2020-06-26 19:03:00 36.72 Madeleine [facility] Respiratory rate 2020-06-26 19:03:00 18 /min [facility] Body height 2020-06-26 19:03:00 190.5 cm [facility] Oxygen saturation in Arterial blood by Pulse oximetry 2020-06-26 19:03:00 96 /min [facility] Systolic blood pressure 2020-01-28 19:30:00 132 mm[Hg] [facility] Diastolic blood pressure 2020-01-28 19:30:00 80 mm[Hg] [facility] Heart rate 2020-01-28 19:30:00 56 /min [facility] Respiratory rate 2020-01-28 19:30:00 19 /min [facility] Oxygen saturation in Arterial blood by Pulse oximetry 2020-01-28 19:30:00 99 /min [facility] Body temperature 2020-01-28 17:09:00 37 Madeleine [facility] Body height 2020-01-28 17:09:00 188 cm [facility] Body weight 2020-01-28 17:09:00 81.647 kg [facility] BMI 2020-01-28 17:09:00 23.11 kg/m2 [facility] Systolic blood pressure 2019-02-17 02:05:00 129 mm[Hg] [facility] Diastolic blood pressure 2019-02-17 02:05:00 73 mm[Hg] [facility] Heart rate 2019-02-17 02:05:00 72 /min [facility] Body temperature 2019-02-17 02:05:00 36.83 Madeleine [facility] Respiratory rate 2019-02-17 02:05:00 18 /min [facility] Oxygen saturation in Arterial blood by Pulse oximetry 2019-02-17 02:05:00 99 /min [facility] Body height 2019-02-16 21:30:00 193 cm [facility] Body weight 2019-02-16 21:30:00 77.111 kg [facility] BMI 2019-02-16 21:30:00 20.69 kg/m2 [facility] Procedures Procedure Date / Time Performed Performing Clinician Source URINALYSIS 2024-06-14 05:25:00 Vibha Chandler [facility] URINALYSIS 2024-06-02 13:41:00 Karen Stewart [facility] CT HEAD WO CONTRAST 2024-06-02 13:30:00 Brigida Stewart ra [facility] MAGNESIUM 2024-06-02 13:16:00 Karen Stewart [facility] COMP. METABOLIC PANEL ([id number]) 2024-06-02 13:16:00 Karen Stewart [facility] CBC WITH DIFF 2024-06-02 13:16:00 Karen Stewart [facility] HIV 1/2 AG-AB WITH REFLEX 2024-06-02 13:16:00 Karen Stewart [facility] RAPID STREP SCREEN FOR GROUP A 2024-04-08 01:22:00 Eryn Watt [facility] INFLUENZA A/B RSV COVID NAAT 2024-04-08 01:22:00 Eryn Watt [facility] RAPID STREP SCREEN FOR GROUP A 2024-03-23 17:33:00 Enrike Beauchamp [facility] INFLUENZA A/B RSV COVID NAAT 2024-03-23 17:33:00 Enrike Beauchamp [facility] URINALYSIS 2023-12-05 01:26:00 Marcia Camacho [facility] CREATINE KINASE 2023-12-05 00:54:00 Marcia Camacho [facility] MAGNESIUM 2023-12-05 00:54:00 Marcia Camacho [facility] COMP. METABOLIC PANEL ([id number]) 2023-12-05 00:54:00 Marcia Camacho [facility] CBC WITH DIFF 2023-12-05 00:54:00 Marcia Camacho [facility] URINALYSIS 2023-09-14 23:37:00 [facility] LIPASE 2023-09-14 23:33:00 [facility] HEPATIC FUNCTION PANEL ([id number]) (ALB,T.PRO,BILI T,BU/BC,ALT,AST,ALK PHOS) 2023-09-14 23:33:00 Waqas Rios [facility] BASIC METABOLIC PANEL (NA, K, CL, CO2, GLUCOSE, BUN, CREATININE, CA) 2023-09-14 23:33:00 Waqas Rios [facility] CBC WITH DIFF 2023-09-14 23:33:00 Waqas Rios [facility] CT ABDOMEN PELVIS WO CONTRAST 2023-09-14 23:15:53 [facility] 2023-09-14 22:51:55 Docto r Unassigned, [place] [facility] CONSENT/REFUSAL FOR DIAGNOSIS AND TREATMENT 2023-09-14 21:51:50 Doctor Unassigned, [place] [facility] XR CHEST 2 VW 2023-08-22 04:40:58 [facility] ASSIGNMENT OF BENEFITS 2023-08-22 04:35:06 Docto r Unassigned, [place] [facility] RAPID INFLUENZA A/B 2023-08-22 04:17:00 Saul Chambers [facility] COVID-19 (ID NOW RAPID TESTING) 2023-08-22 04:17:00 Saul Chambers [facility] CONSENT/REFUSAL FOR DIAGNOSIS AND TREATMENT 2023-08-22 03:39:13 Doctor Unassigned, [place] [facility] RAPID INFLUENZA A/B 2023-06-24 00:48:00 Brett Thorpe [facility] COVID-19 (ID NOW RAPID TESTING) 2023-06-24 00:48:00 Leonidas Brett [facility] CONSENT/REFUSAL FOR DIAGNOSIS AND TREATMENT 2023-06-24 00:10:13 Doctor Unassigned, [place] [facility] ASSIGNMENT OF BENEFITS 2023-04-13 17:51:22 Docto r Unassigned, [place] [facility] COVID-19 (ID NOW RAPID TESTING) 2023-04-13 17:02:00 Damien Mclaughlin [facility] CONSENT/REFUSAL FOR DIAGNOSIS AND TREATMENT 2023-04-13 15:56:27 Doctor Unassigned, [place] [facility] ASSIGNMENT OF BENEFITS 2023-01-13 19:04:38 Docto r Unassigned, [place] [facility] CONSENT/REFUSAL FOR DIAGNOSIS AND TREATMENT 2023-01-13 18:36:39 Doctor Unassigned, [place] [facility] XR CHEST 2 VW 2022-07-25 05:14:39 Waqas Rios [facility] RAPID INFLUENZA A/B 2022-07-25 04:55:00 Abby Rios [facility] COVID-19 (ID NOW RAPID TESTING) 2022-07-25 04:55:00 Waqas Rios [facility] CONSENT/REFUSAL FOR DIAGNOSIS AND TREATMENT 2022-07-25 04:14:04 Doctor Unassigned, [place] [facility] XR CHEST 1 VW 2022-03-05 22:42:22 Venu Rider [facility] RAPID INFLUENZA A/B 2022-03-05 22:31:00 Venu Rider [facility] COVID-19 (ID NOW RAPID TESTING) 2022-03-05 22:31:00 Venu Rider [facility] CONSENT/REFUSAL FOR DIAGNOSIS AND TREATMENT 2022-03-05 21:24:42 Doctor Unassigned, [place] [facility] XR KNEE 3 VW LEFT 2022-01-23 01:18:24 Karen Stewart [facility] XR CHEST 2 VW 2022-01-11 14:12:17 Damien Mclaughlin [facility] CONSENT/REFUSAL FOR DIAGNOSIS AND TREATMENT 2022-01-11 13:44:33 Doctor Unassigned, [place] [facility] CT ABDOMEN PELVIS WO CONTRAST 2021-11-03 02:14:00 Vibha Chandler [facility] LIPASE 2021-11-03 00:45:00 Vibha Chandler [facility] COMP. METABOLIC PANEL ([id number]) 2021-11-03 00:45:00 Vibha Chandler [facility] CBC WITH DIFF 2021-11-03 00:45:[address] [facility] URINALYSIS 2021-11-03 00:45:00 Vibha Chandler [facility] CONSENT/REFUSAL FOR DIAGNOSIS AND TREATMENT 2021-11-02 23:52:10 Doctor Unassigned, [place] [facility] ASSIGNMENT OF BENEFITS 2021-10-23 15:39:10 Docto r Unassigned, [place] [facility] CONSENT/REFUSAL FOR DIAGNOSIS AND TREATMENT 2021-10-23 15:16:02 Doctor Unassigned, [place] [facility] URINALYSIS 2021-10-16 18:00:00 Karen Stewart [facility] CONSENT/REFUSAL FOR DIAGNOSIS AND TREATMENT 2021-10-16 17:44:53 Doctor Unassigned, [place] [facility] XR CHEST 1 VW 2021-10-10 01:34:[address] [facility] RAPID INFLUENZA A/B 2021-10-10 01:09:00 Damon Vasquez [facility] COVID-19 (ID NOW RAPID TESTING) 2021-10-10 01:09:00 Damon Vasquez [facility] CONSENT/REFUSAL FOR DIAGNOSIS AND TREATMENT 2021-10-10 00:35:14 Doctor Unassigned, [place] [facility] NOTICE OF PRIVACY PRACTICES 2021-08-02 23:17:17 Doctor Unassigned, [place] [facility] CONSENT/REFUSAL FOR DIAGNOSIS AND TREATMENT 2021-08-02 23:16:59 Doctor Unassigned, [place] [facility] URINALYSIS 2021-07-07 03:57:00 Diomedes Russo [facility] RAPID INFLUENZA A/B 2021-07-07 03:57:00 Diomedes Russo [facility] COVID-19 (ID NOW RAPID TESTING) 2021-07-07 03:57:00 Diomedes Russo [facility] CONSENT/REFUSAL FOR DIAGNOSIS AND TREATMENT 2021-07-07 03:21:45 Doctor Unassigned, [place] [facility] XR ABDOMEN ACUTE SERIES 2021-06-13 01:52:53 Do radha Mclaughlin [facility] LACTIC ACID WHOLE BLOOD 2021-06-13 01:42:00 Do radha Mclaughlin [facility] URINALYSIS 2021-06-13 01:35:00 Damien Mclaughlin [facility] URINE DRUG (IMMUNOASSAY) - COMPREHENSIVE DRUG SCREEN W/O REFLEX 2021-06-13 01:35:00 Damien Mclaughlin [facility] LIPASE 2021-06-13 01:33:00 [facility] COMP. METABOLIC PANEL ([id number]) 2021-06-13 01:33:00 Damien Mclaughlin [facility] CBC WITH DIFF 2021-06-13 01:33:00 Damien Mclaughlin [facility] NOTICE OF PRIVACY PRACTICES 2021-06-13 00:55:20 Doctor Unassigned, [place] [facility] CONSENT/REFUSAL FOR DIAGNOSIS AND TREATMENT 2021-06-13 00:54:57 Doctor Unassigned, [place] [facility] CONSENT/REFUSAL FOR DIAGNOSIS AND TREATMENT 2021-06-10 23:05:00 Doctor Unassigned, [place] [facility] XR CHEST 1 2021-03-09 14:05:24 Greg Chawla [facility] COVID-19 (ID NOW RAPID TESTING) 2021-03-09 13:05:00 Greg Chawla [facility] NOTICE OF PRIVACY PRACTICES 2021-03-09 13:04:32 Doctor Unassigned, [place] [facility] CONSENT/REFUSAL FOR DIAGNOSIS AND TREATMENT 2021-03-09 12:53:08 Doctor Unassigned, [place] [facility] XR CHEST 1 2020-12-20 02:26:52 Enrike Beauchamp [facility] CONSENT/REFUSAL FOR DIAGNOSIS AND TREATMENT 2020-12-20 00:22:06 Doctor Unassigned, [place] [facility] COVID-19 (ID NOW RAPID TESTING) 2020-12-09 16:11:00 Brendan Mcqueen [facility] XR CHEST 1 VW 2020-12-09 15:55:25 Brendan Mcqueen [facility] CONSENT/REFUSAL FOR DIAGNOSIS AND TREATMENT 2020-12-09 14:44:01 Doctor Unassigned, [place] [facility] COMP. METABOLIC PANEL ([id number]) 2020-09-02 20:52:[address] [facility] CBC WITH DIFF 2020-09-02 20:52:00 [place] [facility] CONSENT/REFUSAL FOR DIAGNOSIS AND TREATMENT 2020-09-02 20:10:21 Doctor Unassigned, [place] [facility] CT ABDOMEN PELVIS WO CONTRAST 2020-08-26 19:51:01 Marcia Camacho [facility] LIPASE 2020-08-26 19:09:00 Marcia Camacho [facility] HEPATIC FUNCTION PANEL ([id number]) (ALB,T.PRO,BILI T,BU/BC,ALT,AST,ALK PHOS) 2020-08-26 19:09:00 Marcia Camacho [facility] BASIC METABOLIC PANEL (NA, K, CL, CO2, GLUCOSE, BUN, CREATININE, CA) 2020-08-26 19:09:00 Marcia Camacho [facility] CBC WITH DIFF 2020-08-26 19:09:[address] [facility] URINALYSIS 2020-08-26 19:09:00 Marcia Camacho [facility] NOTICE OF PRIVACY PRACTICES 2020-08-26 17:54:01 Doctor Unassigned, [place] [facility] CONSENT/REFUSAL FOR DIAGNOSIS AND TREATMENT 2020-08-26 17:53:44 Doctor Unassigned, [place] [facility] CREATINE KINASE 2020-07-16 16:06:00 [facility] 2020-07-16 16:06:00 Damien Mclaughlin [facility] HEPATIC FUNCTION PANEL ([id number]) (ALB,T.PRO,BILI T,BU/BC,ALT,AST,ALK PHOS) 2020-07-16 16:06:00 Damien Mclaughlin [facility] BASIC METABOLIC PANEL (NA, K, CL, CO2, GLUCOSE, BUN, CREATININE, CA) 2020-07-16 16:06:00 Damien Mclaughlin [facility] CBC WITH DIFF 2020-07-16 16:06:00 Damien Mclaughlin [facility] URINALYSIS 2020-07-11 23:45:00 Greg Chawla [facility] CONSENT/REFUSAL FOR DIAGNOSIS AND TREATMENT 2020-07-11 23:01:13 Doctor Unassigned, [place] [facility] COVID-19 (ID NOW RAPID TESTING) 2020-06-26 19:37:00 Damien Mclaughlin [facility] XR CHEST 1 VW 2020-06-26 19:21:30 Damien Mclaughlin [facility] CONSENT/REFUSAL FOR DIAGNOSIS AND TREATMENT 2020-06-26 18:28:35 Doctor Unassigned, [place] [facility] XR CHEST 1 VW COVID 2020-01-28 18:00:48 Charmaine Mclaughlin [facility] COVID-19 (ID NOW RAPID TESTING) 2020-01-28 17:46:00 Damien Mclaughlin [facility] LIPASE 2020-01-28 17:45:00 [facility] TROPONIN I 2020-01-28 17:45:00 [facility] HEPATIC FUNCTION PANEL ([id number]) (ALB,T.PRO,BILI T,BU/BC,ALT,AST,ALK PHOS) 2020-01-28 17:45:00 Damien Mclaughlin [facility] BASIC METABOLIC PANEL (NA, K, CL, CO2, GLUCOSE, BUN, CREATININE, CA) 2020-01-28 17:45:00 Damien Mclaughlin [facility] CBC WITH DIFFERENTIAL 2020-01-28 17:45:00 David Mclaughlin [facility] PROTHROMBIN TIME / INR 2020-01-28 17:45:00 Chilo Mclaughlin [facility] ACTIVATED PARTIAL THRMPLAS TARA 2020-01-28 17:45:00 Damien Mclaughlin [facility] N-TERMINAL PRO-BNP 2020-01-28 17:45:00 Damien Mclaughlin [facility] NOTICE OF PRIVACY PRACTICES 2020-01-28 16:57:05 Doctor Unassigned, [place] [facility] CONSENT/REFUSAL FOR DIAGNOSIS AND TREATMENT 2020-01-28 16:56:50 Doctor Unassigned, [place] [facility] EMERGENCY SERVICES AGREEMENTS AND AUTHORIZATIONS 2019-08-21 06:01:00 Doctor Unassigned, [place] [facility] CONSENT/REFUSAL FOR DIAGNOSIS AND TREATMENT 2019-08-21 05:45:14 Doctor Unassigned, [place] [facility] US TESTICULAR TORSION 2019-02-17 01:11:26 Enrike Beauchamp ige [facility] COMP. METABOLIC PANEL ([id number]) 2019-02-17 00:22:00 Enrike Beauchamp [facility] CBC WITH DIFFERENTIAL 2019-02-17 00:22:00 Enrike Beauchamp ige [facility] URINALYSIS 2019-02-16 22:48:00 Enrike Beauchamp [facility] CONSENT/REFUSAL FOR DIAGNOSIS AND TREATMENT 2019-02-16 21:18:34 Doctor Unassigned, [place] [facility] Encounters Start Date/Time End Date/Time Encounter Type Admission Type Attending [facility] Care Facility Care Department Encounter ID Source 2024-06-04 08:17:00 Outpatient KyreetimothyOmayra [facility] [id number] [facility] 2023-07-02 15:46:00 Outpatient Barb Cooper [facility] [id number] [facility] 2022-09-18 13:14:00 Outpatient Claudia[facility] [id number] [facility] 2022-05-16 13:58:00 Outpatient [facility] [id number] [facility] 2021-12-12 10:22:00 [facility] [id number] [facility] 2021-08-16 14:09:19 Outpatient Saul Na [facility] [id number] [facility] 2021-08-16 14:08:09 Outpatient Hughes, Na [facility] [id number] [facility] 2021-08-16 13:38:29 Outpatient Hughes, Na [facility] ST[facility] [id number] [facility] 2021-08-16 12:54:19 Outpatient Hughes, Na [facility] ST[facility] [id number] [facility] 2021-08-16 12:52:40 Outpatient Hughes, Na [facility] ST[facility] [id number] [facility] 2021-08-16 12:51:52 Outpatient Hughes, Na [facility] ST[facility] [id number] [facility] 2021-08-16 12:23:14 Outpatient Hughes, Na [facility] ST[facility] [id number] [facility] 2021-08-16 12:22:52 Outpatient Hughes, Na [facility] ST[facility] [id number] [facility] 2021-08-16 12:21:41 Outpatient [facility] ST[facility] [id number] [facility] 2021-08-16 12:15:22 Outpatient STLMLC ST[facility] [id number] [facility] 2021-08-16 11:53:33 Outpatient Zabrina Aguilar [facility] ST[facility] [id number] [facility] 2021-08-16 11:26:07 Outpatient Zabrina Aguilar STL[facility] ST[facility] [id number] [facility] 2024-06-13 22:19:00 2024-06-14 01:30:00 Emergency X TAM, VIBHA CHANDLER, VIBHA [facility] [id number] [facility] 2024-06-13 22:19:00 2024-06-14 01:30:00 Emergency Yarima, Wakili S [facility] [id number] [facility] 2024-06-08 00:00:00 2024-06-08 00:00:00 OFFICE VISIT NEW PT LEVEL 4 [facility] [id number] [facility] 2024-06-04 00:00:00 2024-06-04 00:00:00 (TEL) [facility] [id number] 2024-06-02 06:49:00 2024-06-02 09:55:00 Emergency Karen Stewart [facility] [id number] [facility] 2024-04-07 19:29:00 2024-04-07 23:07:00 Emergency ERYN LANDEROS [facility] E[facility] [id number] [facility] [facility] 2024-04-07 19:29:00 2024-04-07 23:07:00 Emergency Enrike Beauchamp Terrence C [facility] 1.2.840.114 350.1.13.10 4.2.7.2.686 [id number] [facility] 2024-03-23 11:41:00 2024-03-23 15:58:00 Emergency X Enrike BEAUCHAMP K [facility] ERT [id number] [facility] 2024-03-23 11:41:00 2024-03-23 15:58:00 Emergency Enrike Beauchamp [facility] 1.2.840.114 350.1.13.10 4.2.7.2.686 [id number] [id number] [facility] 2023-12-04 19:05:00 2023-12-05 00:01:00 Emergency X MARCIA CAMACHO [facility] ERT [id number] [facility] 2023-12-04 19:05:00 2023-12-05 00:01:00 Emergency Marcia Camacho [facility] 1.2.840.114 350.1.13.10 4.2.7.2.686 [id number] [facility] 2023-09-14 16:20:00 2023-09-14 19:43:00 Emergency X WAQAS RIOS [facility] ERT [id number] [facility] 2023-09-14 16:20:00 2023-09-14 19:43:00 Emergency Waqas Rios [facility] 1.2.840.114 350.1.13.10 4.2.7.2.686 [id number] [id number] [facility] 2023-08-21 22:17:00 2023-08-22 00:32:00 Emergency X SAUL CHAMBERS [facility] ERT [id number] [facility] 2023-08-21 22:17:00 2023-08-22 00:32:00 Emergency Saul Chambers [facility] 1.2.840.114 350.1.13.10 4.2.7.2.686 [id number] [facility] 2023-07-03 00:00:00 2023-07-03 00:00:00 OFFICE VISIT ESTAB PT LEVEL 4 STLMLC STLMLC [id number] [facility] 2023-06-23 18:28:00 2023-06-23 21:05:00 Emergency X THORPEBRETT TIMOTHY [facility] ERT [id number] [facility] 2023-06-23 18:28:00 2023-06-23 21:05:00 Emergency Brett Thorpe [facility] 1.2.840.114 350.1.13.10 4.2.7.2.686 [id number] [id number] [facility] 2023-04-13 11:15:00 2023-04-13 13:14:00 Emergency X DAMIEN MCLAUGHLIN [facility] ERT [id number] [facility] 2023-04-13 11:15:00 2023-04-13 13:14:00 Emergency Damien Mclaughlin [facility] 1.2.840.114 350.1.13.10 4.2.7.2.686 [id number] [id number] [facility] 2023-01-13 13:40:00 2023-01-13 14:48:00 [facility] [id number] [facility] 2023-01-13 13:40:00 2023-01-13 14:48:00 Emergency Lilia Rowland Alexandra [facility] 1.2.840.114 350.1.13.10 4.2.7.2.686 [id number] [id number] [facility] 2022-07-24 22:22:00 2022-07-25 00:33:00 Emergency X WAQAS RIOS [facility] ERT [id number] [facility] 2022-07-24 22:22:00 2022-07-25 00:33:00 Emergency Waqas Rios [facility] 1.2.840.114 350.1.13.10 4.2.7.2.686 [id number] [facility] 2022-05-21 00:00:00 2022-05-21 00:00:00 (TEL) STLMLC STLMLC [id number] [facility] 2022-05-18 00:00:00 2022-05-18 00:00:00 OFFICE VISIT EST PT LEVEL 3 STLMLC STLMLC [id number] [facility] 2022-05-01 00:00:00 2022-05-01 00:00:00 (TEL) STLC STLC [id number] [facility] 2022-05-01 00:00:00 2022-05-01 00:00:00 (TEL) STLMLC STLMLC [id number] [facility] 2022-03-05 16:36:00 2022-03-05 18:39:00 Emergency X VENU RIDER [facility] ERT [id number] [facility] 2022-03-05 16:36:00 2022-03-05 18:39:00 Emergency Venu Rider [facility] 1.2.840.114 350.1.13.10 4.2.7.2.686 [id number] [id number] [facility] 2022-02-13 00:00:00 2022-02-13 00:00:00 OFFICE VISIT EST PT LEVEL 3 [facility] [id number] 2022-01-22 20:01:00 2022-01-22 21:51:00 Emergency X KAREN STEWART [facility] ERT [id number] [facility] 2022-01-22 20:01:00 2022-01-22 21:51:00 Emergency Karen Stewart [facility] 1.2.840.114 350.1.13.10 4.2.7.2.686 [id number] 084 [id number] [facility] 2022-01-16 13:38:00 2022-01-16 14:01:00 Emergency X TERRY KAREN [facility] ERT [id number] [facility] 2022-01-16 13:38:00 2022-01-16 14:01:00 Emergency Karen Stewart [facility] 1.2.840.114 350.1.13.10 4.2.7.2.686 [id number] [id number] [facility] 2022-01-11 08:49:00 2022-01-11 09:41:00 Emergency X DAMIEN MCLAUGHLIN [facility] ERT [id number] [facility] 2022-01-11 08:49:00 2022-01-11 09:41:00 Emergency Damien Mclaughlin [facility] 1.2.840.114 350.1.13.10 4.2.7.2.686 [id number] [facility] 2021-11-02 19:00:00 2021-11-02 22:52:00 Emergency X VIBHA CHANDLER [facility] ERT [id number] [facility] 2021-11-02 19:00:00 2021-11-02 22:52:00 Emergency Vibha Chandler [facility] 1.2.840.114 350.1.13.10 4.2.7.2.686 [id number] [id number] [facility] 2021-10-23 10:35:00 2021-10-23 11:34:00 Emergency DIOMEDES BAEZ [facility] ERT [id number] [facility] 2021-10-23 10:35:00 2021-10-23 11:34:00 Emergency Diomedes Russo [facility] 1.2.840.114 350.1.13.10 4.2.7.2.686 [id number] [id number] [facility] 2021-10-16 13:09:00 2021-10-16 15:19:00 Emergency X TERRY KAREN [facility] ERT [id number] [facility] 2021-10-16 13:09:00 2021-10-16 15:19:00 Emergency Karen Stewart [facility] 1.2.840.114 350.1.13.10 4.2.7.2.686 [id number] [id number] [facility] 2021-10-16 00:00:00 2021-10-16 00:00:00 Orders Only Doctor Unassigned, [place] [facility] 1..114 350.1.13.10 4.2.7.2.686 [id number] [facility] 2021-10-09 19:51:00 2021-10-09 21:58:00 Emergency X DAMON VASQUEZ [facility] ERT [id number] [facility] 2021-10-09 19:51:00 2021-10-09 21:58:00 Emergency Damon Vasquez [facility] 1.0.114 350.1.13.10 4.2.7.2.686 [id number] [facility] 2021-10-09 00:00:00 2021-10-09 00:00:00 Orders Only Doctor Unassigned, [place] [facility] 1..114 350.1.13.10 4.2.7.2.686 [id number] [facility] 2021-09-27 00:00:00 2021-09-27 00:00:00 (TEL) STLMLC STLMLC [id number] [facility] 2021-08-29 00:00:00 2021-08-29 00:00:00 OFFICE VISIT EST PT LEVEL 3 STLMLC STLMLC [id number] [facility] 2021-08-02 17:25:00 2021-08-02 17:51:00 Emergency X DIOMEDES RUSSO [facility] ERT [id number] [facility] 2021-08-02 17:25:00 2021-08-02 17:51:00 Emergency Diomedes Russo R [facility] 1..114 350.1.13.10 4.2.7.2.686 [id number] [id number] [facility] 2021-08-02 00:00:00 2021-08-02 00:00:00 Orders Only Doctor Unassigned, [place] [facility] 1.2.114 350.1.13.10 4.2.7.2.686 [id number] [facility] 2021-07-25 00:00:00 2021-07-25 00:00:00 (TEL) STLMLC STLMLC [id number] [facility] 2021-07-06 21:39:00 2021-07-06 22:53:00 Emergency X CARITO RUSSON [facility] ERT [id number] [facility] 2021-07-06 21:39:00 2021-07-06 22:53:00 Emergency RussoCarito munguian R [facility] 1.2.840.114 350.1.13.10 4.2.7.2.686 [id number] [id number] [facility] 2021-06-12 19:05:00 2021-06-12 21:21:00 Emergency X DAMIEN MCLAUGHLIN [facility] ERT [id number] [facility] 2021-06-12 19:05:00 2021-06-12 21:21:00 Emergency Damien Mclaughlin [facility] 1.2.840.114 350.1.13.10 4.2.7.2.686 [id number] [facility] 2021-06-10 17:13:00 2021-06-10 17:28:00 Emergency X JOY SANTOS [facility] ERT [id number] [facility] 2021-06-10 17:13:00 2021-06-10 17:28:00 Emergency Marva Santosanne [facility] 1.2.840.114 350.1.13.10 4.2.7.2.686 [id number] [id number] [facility] 2021-05-26 00:00:00 2021-05-26 00:00:00 PREV VISIT EST AGE 40-64 STLMLC STLMLC [id number] [facility] 2021-03-17 00:00:00 2021-03-17 00:00:00 (TEL) STLMLC STLMLC [id number] [facility] 2021-03-09 08:05:00 2021-03-09 09:49:00 Emergency Greg Chawla [facility] 1.2.840.114 350.1.13.10 4.2.7.2.686 [id number] [facility] 2021-03-09 07:52:00 2021-03-09 07:52:00 Emergency X GREG CHAWLA [facility] ERT [id number] [facility] 2021-03-08 00:00:00 2021-03-08 00:00:00 (TEL) STLMLC STLMLC [id number] [facility] 2021-02-23 00:00:00 2021-02-23 00:00:00 OFFICE VISIT EST PT LEVEL 3 STLMLC STLMLC [id number] [facility] 2020-12-19 19:32:00 2020-12-19 22:24:00 Emergency Enrike Beauchamp [facility] 1.2.840.114 350.1.13.10 4.2.7.2.686 [id number] [id number] [facility] 2020-12-19 19:32:00 2020-12-19 19:32:00 Emergency X Enrike BEAUCHAMP [facility] ERT [id number] [facility] 2020-12-09 10:17:00 2020-12-09 12:57:00 Emergency Brendan Mcqueen [facility] 1.2.840.114 350.1.13.10 4.2.7.2.686 [id number] [id number] [facility] 2020-12-09 10:17:00 2020-12-09 12:57:00 Emergency X BRENDAN MCQUEEN [facility] ERT [id number] [facility] 2020-11-22 00:00:00 2020-11-22 00:00:00 Patient Secure Msg Doctor Unassigned, [place] [facility] 1..114 350.1.13.10 4.2.7.2.686 [id number] [facility] 2020-11-10 00:00:00 2020-11-10 00:00:00 Outpatient STLMLC STLMLC [id number] [facility] 2020-11-03 00:00:00 2020-11-03 00:00:00 Outpatient STLMLC STLMLC [id number] [facility] 2020-11-03 00:00:00 2020-11-03 00:00:00 Outpatient STLMLC STLMLC [id number] [facility] 2020-09-02 14:28:00 2020-09-02 16:23:00 Emergency Samantha Glez [facility] 1.84.114 350.1.13.10 4.2.7.2.686 [id number] [facility] 2020-09-02 14:12:00 2020-09-02 14:12:00 Emergency X [facility] ERT [id number] [facility] 2020-08-26 12:08:00 2020-08-26 15:10:00 Emergency Marcia Camacho G [facility] 1..114 350.1.13.10 4.2.7.2.686 [id number] [facility] 2020-08-26 12:08:00 2020-08-26 12:08:00 Emergency X MARCIA CAMACHO [facility] ERT [id number] [facility] 2020-08-26 00:00:00 2020-08-26 00:00:00 Orders Only Doctor Unassigned, [place] [facility] 1.84.114 350.1.13.10 4.2.7.2.686 [id number] [facility] 2020-08-20 00:00:00 2020-08-20 00:00:00 Outpatient STLMLC STLMLC [id number] [facility] 2020-08-10 00:00:00 2020-08-10 00:00:00 Outpatient STLMLC STLMLC [id number] [facility] 2020-08-09 00:00:00 2020-08-09 00:00:00 Outpatient STLMLC STLMLC [id number] [facility] 2020-08-09 00:00:00 2020-08-09 00:00:00 Outpatient STLMLC STLMLC [id number] [facility] 2020-07-16 09:32:00 2020-07-16 11:31:00 Emergency Arnoldo [facility] 1.2.840.114 350.1.13.10 4.2.7.2.686 [id number] [facility] 2020-07-16 09:32:00 2020-07-16 09:32:00 Emergency X [facility] ERT [id number] [facility] 2020-07-11 18:39:00 2020-07-11 18:59:00 Emergency Amarilys Thompson [facility] 1.2.840.114 350.1.13.10 4.2.7.2.686 [id number] [facility] 2020-07-11 17:01:00 2020-07-11 17:01:00 Emergency X MAMB ERT [id number] [facility] 2020-06-26 12:58:00 2020-06-26 14:42:00 Emergency Arnoldo [facility] 1.2.840.114 350.1.13.10 4.2.7.2.686 [id number] [facility] 2020-06-26 12:27:00 2020-06-26 12:27:00 Emergency X [facility] ERT [id number] [facility] 2020-05-02 00:00:00 2020-05-02 00:00:00 Outpatient STLMLC STLMLC [id number] [facility] 2020-04-28 00:00:00 2020-04-28 00:00:00 Outpatient STLMLC STLMLC [id number] [facility] 2020-01-30 00:00:00 2020-01-30 00:00:00 Patient Secure Msg Doctor Unassigned, [place] [facility] 1.2.840.114 350.1.13.10 4.2.7.2.686 [id number] [facility] 2020-01-28 12:25:33 2020-01-28 14:45:00 Emergency Damien Mclaughlin [facility] 1.2.840.114 350.1.13.10 4.2.7.2.686 [id number] [facility] 2020-01-28 11:57:00 2020-01-28 11:57:00 Emergency X [facility] ERT [id number] [facility] 2020-01-28 00:00:00 2020-01-28 00:00:00 Orders Only Doctor Unassigned, [place] [facility] 1.2.840.114 350.1.13.10 4.2.7.2.686 [id number] [facility] 2020-01-10 20:16:00 2020-01-10 20:16:00 Outpatient [facility] [id number] [facility] 2020-01-01 13:00:00 2020-01-01 13:00:00 Outpatient [facility] [id number] [facility] 2019-10-15 14:36:00 2019-10-15 14:36:00 Outpatient [facility] [id number] [facility] 2019-10-12 13:24:00 2019-10-12 13:24:00 [facility] Medicine [id number] [facility] 2019-10-01 13:15:00 2019-10-01 13:15:00 [facility] [id number] [facility] 2019-08-21 00:00:00 2019-08-21 00:00:00 Orders Only Doctor Unassigned, [place] [facility] 1.2.840.114 350.1.13.10 4.2.7.2.686 [id number] [facility] 2019-08-20 00:00:00 2019-08-20 00:00:00 Orders Only Doctor Unassigned, [place] [facility] 1.2.840.114 350.1.13.10 4.2.7.2.686 [id number] [facility] 2019-06-12 00:37:00 2019-06-12 00:37:[address] [facility] Medicine [id number] [facility] 2019-05-29 13:40:00 2019-05-29 13:40:00 [facility] Medicine [id number] [facility] 2019-02-20 13:40:00 2019-02-20 13:40:00 [facility] Medicine [id number] [facility] 2019-02-16 17:36:38 2019-02-16 21:18:00 Emergency Enrike Beauchamp [facility] 1.2.840.114 350.1.13.10 4.2.7.2.686 [id number] [facility] 2019-01-01 13:16:00 2019-01-01 13:16:[address] [facility] [facility] [address] [facility] [place] [facility] [id number] [facility] 2018-11-10 13:18:00 2018-11-10 13:18:[address] [facility] [address] [facility] [place] [facility] [id number] [facility] 2018-11-07 14:40:00 2018-11-07 14:40:[address] [facility] [address] [facility] [id number] [facility] 2018-10-06 12:57:00 2018-10-06 12:57:[address] [facility] [facility] [address] [facility] [place] [facility] [id number] [facility] 2018-09-30 16:25:00 2018-09-30 16:25:[address] [facility] [facility] [place] [facility] [id number] [facility] 2018-09-19 13:30:00 2018-09-19 13:30:[address] [facility] [address] [facility] [place] [facility] [id number] [facility] 2018-08-08 15:00:00 2018-08-08 15:00:[address] [facility] [address] [facility] [place] [facility] [id number] [facility] 2018-03-19 10:58:00 2018-03-19 10:58:[address] [facility] [facility] [address] [facility] [place] [facility] [id number] [facility] 2018-03-19 09:30:00 2018-03-19 09:30:[address] [facility] [address] [facility] [place] [facility] [id number] [facility] 2018-03-04 10:03:00 2018-03-04 10:03:[address] [facility] [facility] [place] [facility] [id number] [facility] 2018-02-07 14:30:00 2018-02-07 14:30:[address] [facility] [facility] [place] [facility] [id number] [facility] 2017-11-08 14:15:00 2017-11-08 14:15:00 Outpatient [facility] [id number] [facility] 2017-11-08 11:21:00 2017-11-08 11:21:00 Outpatient [facility] [id number] [facility] Results Test Description Test Time Test Comments [...] Thecalvarium and central skull base are unremarkable. [facility] (ALB,T.PRO,BILI T,BU/BC,ALT,AST,ALK PHOS)2023-09-15 00:45:56* Test Item Value Reference Range Interpretation Comme nts TOTAL BILI (test code = 4990984564) 0.4 mg/dL 0.1-1.1 BILI UNCON (test code = 9874563704) 0.2 mg/dL 0.1-1.1 BILI CONJ (test code = 7610244768) 0.0 mg/dL 0.0-0.3 T PROTEIN (test code = 6906884027) 7.5 g/dL 6.3-8.2 ALBUMIN (test code = 6727591900) 4.2 g/dL 3.5-5.0 ALK PHOS (test code = 4921305550) 97 U/L 34-122 ALTv (test code = 1742-6) 22 U/L 5-50 AST(SGOT) (test code = 6172444402) 42 U/L 13-40 H Lab Interpretation (test cod e = 39256-2) [facility]normal [facility] (NA, K, CL, CO2, GLUCOSE, BUN, CREATININE, CA)2023-09-15 00:45:36* Test Item Value Reference Range Interpretation Comme nts NA (test code = 4145865254) 139 mmol/L 135-145 K (test code = 8661461032) 4.0 mmol/L 3.5-5.0 CL (test code = 5095975207) 108 mmol/L 98-108 CO2 TOTAL (test code = 2886890258) 30 mmol/L 23-31 AGAP (test code = 3321676676) 1 2-16 L BUN (test code = 8242239132) 17 mg/dL 7-23 GLUCOSE (test code = 3147876448) 83 mg/dL 70-110 CREATININE (test code = 2160-0) 0.89 mg/dL 0.60-1.25 CALCIUM (test code = 9542866220) 9.3 mg/dL 8.6-10.6 eGFR (test code = 00775-8) 95.7 mL/min/1.73m2 CKD-EPI eGFR (2020). Assuming creatinine has been stable day-to-day for at least three months, the eGFR indicates Category G1 (>= 90 mL/min/1.73 m2) Lab Interpretation (test code = 93508-2) [facility]normal [facility] 00:45:36* Test Item Value Reference Range Interpretation Comme nts LIPASE (test code = 6574619843) 79 U/L 0-220 Lab Interpretation (test cod e = 93352-7) Normal [facility]OM[facility] PELVIS WO [id number] 00:08:31Exam: CT Abdomen and Pelvis without Contrast, [...] osseous abnormality.Soft tissues: Bilateral small fat-containing inguinal hernias.[facility] CHEST 2 [id number] 04:54:31Ordering Physician: SAUL CHAMBERS Clinical Indication: cough Additional Clinical Information: Technical Limitations: None Comparison: None Technique: PA and lateral chest Findings: No infiltrates or effusions. Heart size and mediastinum arenormal.[facility] METABOLIC PANEL (10676)2021-11-03 01:09:40* Test Item Value Reference Range Interpretation Comme nts NA (test code = 2193074973) 140 mmol/L 135-145 K (test code = 4338777102) 4.1 mmol/L 3.5-5.0 CL (test code = 8328982636) 107 mmol/L 98-108 CO2 TOTAL (test code = 3819265559) 27 mmol/L 23-31 AGAP (test code = 1610193171) 2-16 BUN (test code = 1207537714) 16 mg/dL 7-23 GLUCOSE (test code = 5884875816) 95 mg/dL 70-110 CREATININE (test code = 9133699443) 0.70 mg/dL 0.60-1.25 TOTAL BILI (test code = 3481767461) 0.4 mg/dL 0.1-1.1 CALCIUM (test code = 2306064857) 8.7 mg/dL 8.6-10.6 T PROTEIN (test code = 4053201962) 6.6 g/dL 6.3-8.2 ALBUMIN (test code = 7893893687) 4.1 g/dL 3.5-5.0 ALK PHOS (test code = 5256720207) 99 U/L 34-122 ALTv (test code = 1742-6) 21 U/L 5-50 AST(SGOT) (test code = 3121277075) 37 U/L 13-40 eGFR (test code = 5783027557) mL/min/1.73m2 LITZY (test code = LITZY) Association [...] or urine or abnormalities in imaging tests). [facility]22-[facility]-15 01:09:20* Test Item Value Reference Range Interpretation Comme nts LIPASE (test code = 7536788932) 118 U/L 0-220 Lab Interpretation (test cod e = 17397-4) Normal [facility] WITH [id number] 00:53:15* Test Item Value Reference Range Interpretation [...] 34.0 g/dL 31.2-35.0 RDW-SD (test code = 22472-4) 46.6 fL 38.5-51.6 RDW-CV (test code = 788-0) 13.1 % 12.1-15.4 PLT (test code = 777-3) See_Comment [Automated Breathe[employer] ge] The system which generated this result transmitted reference range: 150 - 328 10*3/?L. The reference range was not used to interpret this result as normal/abnormal. MPV (test code = 08735-9) 10.4 fL 9.8-13.0 NRBC/100 WBC (test code = 0619344143) See_Comment [Automated [employer] ssage] The system which generated this result transmitted reference range: 0.0 - 10.0 /100 WBCs. The reference range was not used to interpret this result as normal/abnormal. NRBC x10^3 (test code = 9398804946) <0.01 See_Comment [Automated Breathe[employer] ge] The system which generated this result transmitted reference range: 10*3/?L. The reference range was not used to interpret this result as normal/abnormal. GRAN MAT (NEUT) % (test code = 770-8) 42.5 % IMM GRAN % (test code = 5428815574) 0.20 % LYMPH % (test code = 736-9) 42.0 % MONO % (test code = 5905-5) 13.1 % EOS % (test code = 713-8) 1.8 % BASO % (test code = 706-2) 0.4 % GRAN MAT x10^3(ANC) (test code = 2606458482) 2.08 10*3/uL 1.99-6.95 IMM GRAN x10^3 (test code = 5675567511) <0.03 0.00-0.06 LYMPH x10^3 (test code = 731-0) 2.06 10*3/uL 1.09-3.23 MONO x10^3 (test code = 742-7) 0.64 10*3/uL 0.36-1.02 EOS x10^3 (test code = 711-2) 0.09 10*3/uL 0.06-0.53 BASO x10^3 (test code = 704-7) <0.03 0.01-0.09 Lab Interpretation (test code = 85696-6) [facility]normal [facility]OL[facility] PAN[facility] (93794)2021-06-13 02:10:08* Test Item Value Reference Range Interpretation Comme nts NA (test code = 0024570341) 138 mmol/L 135-145 K (test code = 8034066094) 4.3 mmol/L 3.5-5.0 CL (test code = 4661812633) 105 mmol/L 98-108 CO2 TOTAL (test code = 8734614641) 30 mmol/L 23-31 AGAP (test code = 2174870712) 2-16 BUN (test code = 1607381240) 18 mg/dL 7-23 GLUCOSE (test code = 4203325359) 86 mg/dL 70-110 CREATININE (test code = 2662717855) 0.64 mg/dL 0.60-1.25 TOTAL BILI (test code = 4840607322) 0.4 mg/dL 0.1-1.1 CALCIUM (test code = 4829403383) 9.7 mg/dL 8.6-10.6 T PROTEIN (test code = 0075090149) 7.0 g/dL 6.3-8.2 ALBUMIN (test code = 6159055773) 4.2 g/dL 3.5-5.0 ALK PHOS (test code = 6029709108) 86 U/L 34-122 ALTv (test code = 1742-6) 20 U/L 5-50 AST(SGOT) (test code = 4819462855) 39 U/L 13-40 eGFR (test code = 9786060845) mL/min/1.73m2 LITZY (test code = LITZY) Association [...] or urine or abnormalities in imaging tests). [facility] 02:09:27* Test Item Value Reference Range Interpretation Comme nts LIPASE (test code = 8541585594) 113 U/L 0-220 Lab Interpretation (test cod e = 86585-4) Normal [facility] WITH [id number] 01:57:23* Test Item Value Reference Range Interpretation [...] 33.2 g/dL 31.2-35.0 RDW-SD (test code = 18236-2) 46.7 fL 38.5-51.6 RDW-CV (test code = 788-0) 13.1 % 12.1-15.4 PLT (test code = 777-3) See_Comment [Automated [employer] ge] The system which generated this result transmitted reference range: 150 - 328 10*3/?L. The reference range was not used to interpret this result as normal/abnormal. MPV (test code = 62150-3) 10.9 fL 9.8-13.0 NRBC/100 WBC (test code = 6076538984) See_Comment [Automated [employer] ssage] The system which generated this result transmitted reference range: 0.0 - 10.0 /100 WBCs. The reference range was not used to interpret this result as normal/abnormal. NRBC x10^3 (test code = 5183719358) <0.01 See_Comment [Automated messa ge] The system which generated this result transmitted reference range: 10*3/?L. The reference range was not used to interpret this result as normal/abnormal. GRAN MAT (NEUT) % (test code = 770-8) 48.1 % IMM GRAN % (test code = 3310009403) 0.40 % LYMPH % (test code = 736-9) 39.4 % MONO % (test code = 5905-5) 9.2 % EOS % (test code = 713-8) 2.2 % BASO % (test code = 706-2) 0.7 % GRAN MAT x10^3(ANC) (test code = 8352236873) 2.67 10*3/uL 1.99-6.95 IMM GRAN x10^3 (test code = 8268876743) <0.03 0.00-0.06 LYMPH x10^3 (test code = 731-0) 2.18 10*3/uL 1.09-3.23 MONO x10^3 (test code = 742-7) 0.51 10*3/uL 0.36-1.02 EOS x10^3 (test code = 711-2) 0.12 10*3/uL 0.06-0.53 BASO x10^3 (test code = 704-7) 0.04 10*3/uL 0.01-0.09 Lab Interpretation (test code = 58210-6) Abnormal [facility] 1 [id number] 14:45:17No radiographic evidence of acute cardiopulmonary abnormality Preliminary Report Dictated by Resident: Ese Ball MD., have reviewed this study and agree with theabovereport.EXAM: XR CHEST 1 VW HISTORY: 60 years-old Male; shortness of breath TECHNIQUE: Frontal radiograph of the chest. COMPARISON: 12/19/2020. FINDINGS: The lung volumes are hyperexpanded. Prominent bilateral pulmonaryvasculature. Subsegmental atelectatic band/scarring in the left lower lobe.No pleural abnormality. The cardiomediastinal silhouette is normal. No osseous lesions are identified. [facility], Radiant Results Inft User - 03/09/2021 9:47 [...] this study and agree with theabove report. [place] [address] (ID NOW RAPID TESTING)2021-03-09 13:30:46* Test Item Value Reference Range Interpretation Comme nts SARS-CoV-2 Rapid ID NOW (test code = 93250-7) Not Detected Not Detected LITZY (test code = LITZY) ID NOW COVID-19 As say is an isothermal nucleic acid amplification test intended for the qualitative detection of nucleic acid from SARS-CoV-2 viral RNA in nasopharyngeal (ELECTRIC SWITCH REPAIRER) specimens. It is used under Emergency Use [...] clinically indicated. Lab Interpretation (test code = 00833-8) Normal [place] [address] (ID NOW RAPID TESTING)2020-12-09 17:21:38* Test Item Value Reference Range Interpretation Comme nts SARS-CoV-2 Rapid ID NOW (test code = 66266-2) Not Detected Not Detected LITZY (test code = LITZY) ID NOW COVID-19 As say is an isothermal nucleic acid amplification test intended for the qualitative detection of nucleic acid from SARS-CoV-2 viral RNA in nasopharyngeal (ELECTRIC SWITCH REPAIRER) specimens. It is used under Emergency Use [...] clinically indicated. Lab Interpretation (test code = 00232-8) Normal [facility] 1 [id number] 17:00:31Clear lungs. Preliminary Report Dictated by Resident: [...] normal. No acute osseous abnormality is present. [facility], Radiant Results Inft User - 12/09/2020 12:01 [...] reviewed this study and agree with theabove report.[facility]. METABOLIC PANEL ([id number])2020-09-02 21:19:00* Test Item Value Reference Range Interpretation Comme nts NA (test code = 6818696501) 140 mmol/L 135-145 K (test code = 2924017821) 3.8 mmol/L 3.5-5 CL (test code = 8693886546) 105 mmol/L 98-108 CO2 TOTAL (test code = 9568104726) 30 mmol/L 23-31 AGAP (test code = 5071203594) 2-16 BUN (test code = 1727313082) 13 mg/dL 7-23 GLUCOSE (test code = 5862952740) 89 mg/dL 70-110 CREATININE (test code = 3262177883) 0.72 mg/dL 0.6-1.25 TOTAL BILI (test code = 9977982886) 0.5 mg/dL 0.1-1.1 CALCIUM (test code = 1790503823) 8.9 mg/dL 8.6-10.6 T PROTEIN (test code = 9749208752) 7.2 g/dL 6.3-8.2 ALBUMIN (test code = 2505149007) 4.5 g/dL 3.5-5 ALK PHOS (test code = 6355398279) 82 U/L 34-122 ALTv (test code = 1742-6) 16 U/L 5-50 AST(SGOT) (test code = 9376957816) 36 U/L 13-40 eGFR Calculation (Non-) (test code = 4438986900) mL/min/1.73m2 eGFR Calculation () (test code = 2890628201) mL/min/1.73m2 LITZY (test code = LITZY) Association [...] or urine or abnormalities in imaging tests). [facility] WITH [id number] 21:00:00* Test Item Value Reference Range Interpretation Comme nts WBC (test code = 6690-2) See_Comment [Automated [employer]he[employer] ge] The system which generated this result transmitted reference range: 4.20 - 10.70 10*3/?L. The reference range was not used to interpret this result as normal/abnormal. RBC (test code = 789-8) See_Comment [Automated [employer] ge] The system which generated this result [...] 34.6 g/dL 31.2-35 RDW-SD (test code = 04949-0) 44.7 fL 38.5-51.6 RDW-CV (test code = 788-0) 13.0 % 12.1-15.4 PLT (test code = 777-3) See_Comment [Automated [employer] ge] The system which generated this result transmitted reference range: 150 - 328 10*3/?L. The reference range was not used to interpret this result as normal/abnormal. MPV (test code = 42478-0) 10.5 fL 9.8-13 NRBC/100 WBC (test code = 3244827912) See_Comment [Automated [employer] ssage] The system which generated this result transmitted reference range: 0.0 - 10.0 /100 WBCs. The reference range was not used to interpret this result as normal/abnormal. NRBC x10^3 (test code = 0014568312) <0.01 See_Comment [Automated me ssage] The system which generated this result transmitted reference range: 10*3/?L. The reference range was not used to interpret this result as normal/abnormal. GRAN MAT (NEUT) % (test code = 770-8) 47.4 % IMM GRAN % (test code = 2981336969) 0.20 % LYMPH % (test code = 736-9) 40.8 % MONO % (test code = 5905-5) 9.6 % EOS % (test code = 713-8) 1.3 % BASO % (test code = 706-2) 0.7 % GRAN MAT x10^3(ANC) (test code = 9600886827) 2.16 10*3/uL 1.99-6.95 IMM GRAN x10^3 (test code = 4633929783) <0.03 0-0.06 LYMPH x10^3 (test code = 731-0) 1.86 10*3/uL 1.09-3.23 MONO x10^3 (test code = 742-7) 0.44 10*3/uL 0.36-1.02 EOS x10^3 (test code = 711-2) 0.06 10*3/uL 0.06-0.53 BASO x10^3 (test code = 704-7) 0.03 10*3/uL 0.01-0.09 [facility] ABDOMEN PELVIS WO [id number] 20:16:13No acute abnormality. No diverticulitis or appendicitis. [...] osseous lesion.IMPRESSIONNo acute abnormality. No diverticulitis or appendicitis.[facility] (NA, K, CL, CO2, GLUCOSE, BUN, CREATININE, CA) 2020-08-26 20:12:00* Test Item Value Reference Range Interpretation Comme nts NA (test code = 1635945050) 141 mmol/L 135-145 K (test code = 4160604595) 3.7 mmol/L 3.5-5 CL (test code = 8648932772) 102 mmol/L 98-108 CO2 TOTAL (test code = 5926327533) 30 mmol/L 23-31 AGAP (test code = 1614779361) 2-16 BUN (test code = 0591167283) 13 mg/dL 7-23 GLUCOSE (test code = 1159331937) 81 mg/dL 70-110 CREATININE (test code = 0002476308) 0.71 mg/dL 0.6-1.25 CALCIUM (test code = 0533482535) 9.6 mg/dL 8.6-10.6 eGFR Calculation (Non-) (test code = 2336643686) mL/min/1.73m2 eGFR Calculation () (test code = 1277336439) mL/min/1.73m2 LITZY (test code = LITZY) Association [...] or urine or abnormalities in imaging tests). [facility] (ALB, T.PRO, BILI T, BU/BC, ALT, AST, ALK PHOS)2020-08-26 20:12:00* Test Item Value Reference Range Interpretation Comme nts TOTAL BILI (test code = 0372272765) 0.8 mg/dL 0.1-1.1 BILI UNCON (test code = 7753659402) 0.7 mg/dL 0.1-1.1 BILI CONJ (test code = 0631651200) 0.0 mg/dL 0-0.3 T PROTEIN (test code = 4374279815) 8.6 g/dL 6.3-8.2 H ALBUMIN (test code = 4529681439) 5.0 g/dL 3.5-5 ALK PHOS (test code = 6875073791) 86 U/L 34-122 ALTv (test code = 1742-6) 23 U/L 5-50 AST(SGOT) (test code = 1216795298) 44 U/L 13-40 H Lab Interpretation (test cod e = 93630-9) Abnormal [facility] TempleLipase Brapv0050-72-97 20:12:00* Test Item Value Reference Range Interpretation Comme nts LIPASE (test code = 1972027967) 67 U/L 0-220 Lab Interpretation (test cod e = 65781-1) Normal [facility] TempleUrinalysis2021-02-05 20:00:00* Test Item Value Reference Range Interpretation Comme nts APPEARANCE (test code = 9002351121) Clear Clear COLOR (test code = 0974526590) Yellow Yellow PH (test code = 5627562148) 4.8-8.0 SP GRAVITY (test code = 0544360855) 1.003-1.030 GLU U QUAL (test code = 3310965380) Normal Normal BLOOD (test code = 7938078998) Negative Negative KETONES (test code = 4059449313) Negative Negative PROTEIN (test code = 2887-8) Negative Negative UROBILIN (test code = 1586197407) Normal Normal BILIRUBIN (test code = 6586184638) Negative Negative NITRITE (test code = 0266841243) Negative Negative LEUK KENDELL (test code = 1992037645) Negative Negative RBC/HPF (test code = 4078364348) See_Comment [Automated [employer] ge] The system which generated this result transmitted reference range: 0 - 3 HPF. The reference range was not used to interpret this result as normal/abnormal. WBC/HPF (test code = 0998154620) See_Comment [Automated [employer] ge] The system which generated this result transmitted reference range: 0 - 5 HPF. The reference range was not used to interpret this result as normal/abnormal. BACTERIA (test code = 0587366284) Negative Negative MUCOUS (test code = 0720605897) Slight Negative LPF A Lab Interpretation (test code = 55125-0) Abnormal [facility] with Koptgssyvdml2108-08-97 19:54:00* Test Item Value Reference Range Interpretation [...] 34.3 g/dL 31.2-35 RDW-SD (test code = 99839-9) 46.3 fL 38.5-51.6 RDW-CV (test code = 788-0) 13.2 % 12.1-15.4 PLT (test code = 777-3) See_Comment [Automated messa ge] The system which generated this result transmitted reference range: 150 - 328 10*3/?L. The reference range was not used to interpret this result as normal/abnormal. MPV (test code = 31926-9) 11.1 fL 9.8-13 NRBC/100 WBC (test code = 1995193251) See_Comment [[facility]ated [employer] ssage] The system which generated this result transmitted reference range: 0.0 - 10.0 /100 WBCs. The reference range was not used to interpret this result as normal/abnormal. NRBC x10^3 (test code = 6939980532) <0.01 See_Comment [Automated messa ge] The system which generated this result transmitted reference range: 10*3/?L. The reference range was not used to interpret this result as normal/abnormal. GRAN MAT (NEUT) % (test code = 770-8) 51.0 % IMM GRAN % (test code = 3721555074) 0.00 % LYMPH % (test code = 736-9) 40.1 % MONO % (test code = 5905-5) 6.2 % EOS % (test code = 713-8) 2.0 % BASO % (test code = 706-2) 0.7 % GRAN MAT x10^3(ANC) (test code = 8249132135) 2.30 10*3/uL 1.99-6.95 IMM GRAN x10^3 (test code = 6123869134) <0.03 0-0.06 LYMPH x10^3 (test code = 731-0) 1.81 10*3/uL 1.09-3.23 MONO x10^3 (test code = 742-7) 0.28 10*3/uL 0.36-1.02 L EOS x10^3 (test code = 711-2) 0.09 10*3/uL 0.06-0.53 BASO x10^3 (test code = 704-7) 0.03 10*3/uL 0.01-0.09 Lab Interpretation (test code = 97425-2) Abnormal [facility] Metabolic Panel (NA, K, CL, CO2, GLUCOSE, BUN, CREATININE, CA)2020-07-16 16:25:00* Test Item Value Reference Range Interpretation Comme nts NA (test code = 6068076980) 139 mmol/L 135-145 K (test code = 9663823947) 4.1 mmol/L 3.5-5 CL (test code = 6313658033) 102 mmol/L 98-108 CO2 TOTAL (test code = 1413921305) 30 mmol/L 23-31 AGAP (test code = 5844629722) 2-16 BUN (test code = 8276214293) 16 mg/dL 7-23 GLUCOSE (test code = 6706914860) 115 mg/dL 70-110 H CREATININE (test code = 2999994533) 0.74 mg/dL 0.6-1.25 CALCIUM (test code = 3120506203) 9.5 mg/dL 8.6-10.6 eGFR Calculation (Non-) (test code = 4156455482) mL/min/1.73m2 eGFR Calculation () (test code = 3668606155) mL/min/1.73m2 LITZY (test code = LITZY) Association [...] imaging tests). Lab Interpretation (test code = 30072-9) Abnormal [facility] Temple[facility] (ALB, T.PRO, BILI T, BU/BC, ALT, AST, ALK PHOS)2020-07-16 16:25:00* Test Item Value Reference Range Interpretation Comme nts TOTAL BILI (test code = 3736940789) 0.4 mg/dL 0.1-1.1 BILI UNCON (test code = 0654908701) 0.3 mg/dL 0.1-1.1 BILI CONJ (test code = 1281964494) 0.0 mg/dL 0-0.3 T PROTEIN (test code = 7480557921) 7.0 g/dL 6.3-8.2 ALBUMIN (test code = 4839201814) 4.2 g/dL 3.5-5 ALK PHOS (test code = 4527758341) 112 U/L 34-122 ALTv (test code = 1742-6) 23 U/L 5-50 AST(SGOT) (test code = 0757439484) 34 U/L 13-40 Lab Interpretation (test cod e = 19014-3) Normal [facility] TempleMAGNESIUM2020-12-26 16:25:00* Test Item Value Reference Range Interpretation Comme nts MAGNESIUM (test code = 0279400655) 2.2 mg/dL 1.7-2.4 Lab Interpretation (test cod e = 79780-3) Normal [facility] TempleCREATINE [id number] 16:25:00* Test Item Value Reference Range Interpretation Comme nts CK (test code = 5464304150) 123 U/L 33-194 Lab Interpretation (test cod e = 99293-0) Normal [facility] TempleCBC with Ozyjchfrvohj5144-14-19 16:13:00* Test Item Value Reference Range Interpretation Comme nts WBC (test code = 6690-2) See_Comment [Automated [employer] ge] The system which generated this result transmitted reference range: 4.20 - 10.70 10*3/?L. The reference range was not used to interpret this result as normal/abnormal. RBC (test code = 789-8) See_Comment [Automated [employer] ge] The system which generated this result [...] 33.4 g/dL 31.2-35 RDW-SD (test code = 48659-4) 46.4 fL 38.5-51.6 RDW-CV (test code = 788-0) 13.1 % 12.1-15.4 PLT (test code = 777-3) See_Comment [Automated [employer] ge] The system which generated this result transmitted reference range: 150 - 328 10*3/?L. The reference range was not used to interpret this result as normal/abnormal. MPV (test code = 73854-8) 10.8 fL 9.8-13 NRBC/100 WBC (test code = 0103964331) See_Comment [[facility]ated [facility] [facility] ssage] The system which generated this result transmitted reference range: 0.0 - 10.0 /100 WBCs. The reference range was not used to interpret this result as normal/abnormal. NRBC x10^3 (test code = 6818259341) <0.01 See_Comment [Automated messa ge] The system which generated this result transmitted reference range: 10*3/?L. The reference range was not used to interpret this result as normal/abnormal. GRAN MAT (NEUT) % (test code = 770-8) 66.2 % IMM GRAN % (test code = 7079724011) 0.60 % LYMPH % (test code = 736-9) 23.8 % MONO % (test code = 5905-5) 9.0 % EOS % (test code = 713-8) 0.1 % BASO % (test code = 706-2) 0.3 % GRAN MAT x10^3(ANC) (test code = 4049599468) 4.57 10*3/uL 1.99-6.95 IMM GRAN x10^3 (test code = 8120735348) 0.04 10*3/uL 0-0.06 LYMPH x10^3 (test code = 731-0) 1.64 10*3/uL 1.09-3.23 MONO x10^3 (test code = 742-7) 0.62 10*3/uL 0.36-1.02 EOS x10^3 (test code = 711-2) <0.03 0.06-0.53 L BASO x10^3 (test code = 704-7) <0.03 0.01-0.09 Lab Interpretation (test code = 96855-6) Abnormal [facility]IS2020-12-22 00:03:00* Test Item Value Reference Range Interpretation Comme nts APPEARANCE (test code = 5470674330) Clear Clear COLOR (test code = 4249984048) Yellow Yellow PH (test code = 7826213785) 4.8-8.0 SP GRAVITY (test code = 0506449014) 1.003-1.030 GLU U QUAL (test code = 2990884812) Normal Normal BLOOD (test code = 4678089045) Negative Negative KETONES (test code = 6461831988) Negative Negative PROTEIN (test code = 2887-8) Negative Negative UROBILIN (test code = 9073546953) Normal Normal BILIRUBIN (test code = 8453839327) Negative Negative NITRITE (test code = 2204830883) Negative Negative LEUK KENDELL (test code = 8933726011) Negative Negative RBC/HPF (test code = 7033831387) See_Comment [Automated messa ge] The system which generated this result transmitted reference range: 0 - 3 HPF. The reference range was not used to interpret this result as normal/abnormal. WBC/HPF (test code = 7478303221) See_Comment [Automated messa ge] The system which generated this result transmitted reference range: 0 - 5 HPF. The reference range was not used to interpret this result as normal/abnormal. BACTERIA (test code = 8598458876) Few Negative A SQ EPITH (test code = 2057496402) <1 HPF TRANS EPI (test code = 2743733110) <1 See_Comment [Automated messa ge] The system which generated this result transmitted reference range: <=1 HPF. The reference range was not used to interpret this result as normal/abnormal. Lab Interpretation (test code = 96044-9) Abnormal [facility]OVID[facility] (ID NOW RAPID TESTING)2020-06-26 20:08:00* Test Item Value Reference Range Interpretation Comme nts SARS-CoV-2 Rapid ID NOW (test code = 20840-4) Not Detected Not Detected LITZY (test code = LITZY) ID NOW COVID-19 As say is an isothermal nucleic acid amplification test intended for the qualitative detection of nucleic acid from SARS-CoV-2 viral RNA in nasopharyngeal (ELECTRIC SWITCH REPAIRER) specimens. It is used under Emergency Use [...] clinically indicated. Lab Interpretation (test code = 34530-4) Normal [facility] 1 VW [id number] 18:30:24No acute cardiopulmonary abnormality, specifically no detectableradiographic findings to suggest COVID-19 pneumonia. Disclaimer: Generally, the findings on chest imaging in COVID-19 are notspecific, and overlap with other infections, including influenza, H1N1,SARS and MERS.According to the Centers for Disease Control (CDC) and recent statement ofthe [employer], viral testing remains the [...] Disease Control (CDC) and recent statement ofthe [place], viral testing remains the only specificmethod of diagnosis. Confirmation with the viral test is required, even ifradiologic findings are suggestive of COVID-[address]. Preliminary Report Dictated by Resident: Roger Baker MD., have reviewed this study and agree with theabove report.[facility] TempleTroponin [id number] 18:30:00* Test Item Value Reference Range Interpretation Comme nts TROPONIN I (test code = 6675438062) <0.012 See_Comment [Automated message] The system which [...] biotin. ? Lab Interpretation (test code = 51839-8) Normal [facility] TempleN-TERMINAL TKK-[id number] 18:27:00* Test Item Value Reference Range Interpretation Comme nts NT-proBNP (test code = 6538004825) 27 pg/mL See_Comment [Automated message] The system which generated this result transmitted reference range: <=125. The reference range was not used to interpret this result as normal/abnormal. LITZY (test code = LITZY) Biotin has been reported to cause a negative bias, interpret results relative to patient's use of biotin. Lab Interpretation (test code = 44252-2) Normal [facility] (ID NOW RAPID TESTING)2020-01-28 18:23:00* Test Item Value Reference Range Interpretation Comme nts SARS-CoV-2 Rapid ID NOW (test code = 56594-3) Not Detected Not Detected LITZY (test code = LITZY) ID NOW COVID-19 As say is an isothermal nucleic acid amplification test intended for the qualitative detection of nucleic acid from SARS-CoV-2 viral RNA in nasopharyngeal (ELECTRIC SWITCH REPAIRER) specimens. It is used under Emergency Use [...] clinically indicated. Lab Interpretation (test code = 54290-8) Normal [facility] Temple[facility] WITH [id number] 18:22:00* Test Item Value Reference Range Interpretation Comme nts WBC (test code = 6690-2) See_Comment [Automated [employer]] The system which generated this result transmitted reference range: 4.20 - 10.70 10*3/?L. The reference range was not used to interpret this result as normal/abnormal. RBC (test code = 789-8) See_Comment [Automated [employer]] The system which generated this result transmitted [...] 33.6 g/dL 31.2-35 RDW-SD (test code = 36785-0) 47.2 fL 38.5-51.6 RDW-CV (test code = 788-0) 13.2 % 12.1-15.4 PLT (test code = 777-3) See_Comment [Automated messa ge] The system which generated this result transmitted reference range: 150 - 328 10*3/?L. The reference range was not used to interpret this result as normal/abnormal. MPV (test code = 52170-0) 11.0 fL 9.8-13 NRBC/100 WBC (test code = 7650956613) See_Comment [[employer]ated [employer] ssage] The system which generated this result transmitted reference range: 0.0 - 10.0 /100 WBCs. The reference range was not used to interpret this result as normal/abnormal. NRBC x10^3 (test code = 3003866196) <0.01 See_Comment [Automated messa ge] The system which generated this result transmitted reference range: 10*3/?L. The reference range was not used to interpret this result as normal/abnormal. GRAN MAT (NEUT) % (test code = 770-8) 46.4 % IMM GRAN % (test code = 9674535040) 0.60 % LYMPH % (test code = 736-9) 39.6 % MONO % (test code = 5905-5) 10.2 % EOS % (test code = 713-8) 2.4 % BASO % (test code = 706-2) 0.8 % GRAN MAT x10^3(ANC) (test code = 6039826262) 2.33 10*3/uL 1.99-6.95 IMM GRAN x10^3 (test code = 0719649858) 0.03 10*3/uL 0-0.06 LYMPH x10^3 (test code = 731-0) 1.99 10*3/uL 1.09-3.23 MONO x10^3 (test code = 742-7) 0.51 10*3/uL 0.36-1.02 EOS x10^3 (test code = 711-2) 0.12 10*3/uL 0.06-0.53 BASO x10^3 (test code = 704-7) 0.04 10*3/uL 0.01-0.09 Lab Interpretation (test code = 91621-6) Abnormal [facility] Metabolic Panel (NA, K, CL, CO2, GLUCOSE, BUN, CREATININE, CA)2020-01-28 18:19:00* Test Item Value Reference Range Interpretation Comme nts NA (test code = 8380375668) 140 mmol/L 135-145 K (test code = 9425509285) 4.0 mmol/L 3.5-5 CL (test code = 6803425902) 105 mmol/L 98-108 CO2 TOTAL (test code = 6617376334) 29 mmol/L 23-31 AGAP (test code = 3024310206) 2-16 BUN (test code = 3704788649) 14 mg/dL 7-23 GLUCOSE (test code = 2108433036) 111 mg/dL 70-110 H CREATININE (test code = 1320842666) 0.80 mg/dL 0.6-1.25 CALCIUM (test code = 1728119787) 9.5 mg/dL 8.6-10.6 eGFR Calculation (Non-) (test code = 8671697341) mL/min/1.73m2 eGFR Calculation () (test code = 7083430831) mL/min/1.73m2 LITZY (test code = LITZY) Association [...] imaging tests). Lab Interpretation (test code = 62319-5) [facility] (ALB, T.PRO, BILI T, BU/BC, ALT, AST, ALK PHOS)2020-01-28 18:19:00* Test Item Value Reference Range Interpretation Comme nts TOTAL BILI (test code = 2545915233) 0.4 mg/dL 0.1-1.1 BILI UNCON (test code = [id number]) 0.5 mg/dL 0.1-1.1 BILI CONJ (test code = 9836339351) 0.0 mg/dL 0-0.3 T PROTEIN (test code = 1690644172) 7.6 g/dL 6.3-8.2 ALBUMIN (test code = 2847595373) 4.3 g/dL 3.5-5 ALK PHOS (test code = 6623563250) 87 U/L 34-122 ALTv (test code = 1742-6) 20 U/L 5-50 AST(SGOT) (test code = 7760701435) 36 U/L 13-40 Lab Interpretation (test cod e = 98505-0) [facility] [id number] 18:19:00* Test Item Value Reference Range Interpretation Comme nts LIPASE (test code = 9736224402) 110 U/L 0-220 Lab Interpretation (test cod e = 10445-6) Normal [facility]PTT2020-07-09 18:09:00* Test Item Value Reference Range Interpretation Comme nts APTT Patient (test code = 3173-2) See_Comment [Automated message] The system which generated this result transmitted reference range: 23 - 38 Seconds. The reference range was not used to interpret this result as normal/abnormal. LITZY (test code = LITZY) The [facility] patient population mean normal value for aPTT is 30 seconds. Lab Interpretation (test code = 30646-8) Normal [facility] Temple[facility]thrombin Time (PT) / [id number] 18:07:00 * Test Item Value Reference Range [...] the indications. Lab Interpretation (test code = 51343-8) Abnormal [facility] TESTICULAR [id number] 02:04:04 Sonographic findings consistent with left epidermidis [...] increase flow on color Doppler with Valsalvamaneuver. [facility], Radiant Results Inft User - 02/16/2019 9:04 [...] reviewed this study and agree with the abovereport.[facility]. METABOLIC PANEL (99962)2019-02-17 01:12:00* Test Item Value Reference Range Interpretation Comme nts NA (test code = 5338971735) 143 mmol/L 135-145 K (test code = 6339198783) 4.5 mmol/L 3.5-5 CL (test code = 9996980345) 103 mmol/L 98-108 CO2 TOTAL (test code = 0417033556) 29 mmol/L 23-31 AGAP (test code = 0750868721) 2-16 BUN (test code = 4083741996) 14 mg/dL 7-23 GLUCOSE (test code = 1123902752) 86 mg/dL 70-110 CREATININE (test code = 4516923571) 0.79 mg/dL 0.6-1.25 TOTAL BILI (test code = 1181030545) 0.5 mg/dL 0.1-1.1 CALCIUM (test code = 8054945491) 10.0 mg/dL 8.6-10.6 T PROTEIN (test code = 3450685352) 8.7 g/dL 6.3-8.2 H ALBUMIN (test code = 5478237496) 5.1 g/dL 3.5-5 H ALK PHOS (test code = 2487690210) 110 U/L 34-122 ALT(SGPT) (test code = 1822240358) 31 U/L 9-51 AST(SGOT) (test code = 6673866170) 49 U/L 13-40 H eGFR Calculation (Non-) (test code = 3783346714) mL/min/1.73m2 eGFR Calculation () (test code = 8001570781) mL/min/1.73m2 LITZY (test code = LITZY) Association [...] imaging tests). Lab Interpretation (test code = 91161-8) Abnormal [facility] WITH [id number] 00:39:00* Test Item Value Reference Range Interpretation Comme nts WBC (test code = 6690-2) See_Comment H [Automated [employer]] The system which generated this result transmitted reference range: 4.20 - 10.70 10*3/?L. The reference range was not used to interpret this result as normal/abnormal. RBC (test code = 789-8) See_Comment [Automated [employer]] The system which generated this result [...] 33.3 g/dL 31.2-35 RDW-SD (test code = 55721-4) 46.9 fL 38.5-51.6 RDW-CV (test code = 788-0) 13.3 % 12.1-15.4 PLT (test code = 777-3) See_Comment [Automated [employer]] The system which generated this result transmitted reference range: 150 - 328 10*3/?L. The reference range was not used to interpret this result as normal/abnormal. MPV (test code = 67338-6) 10.6 fL 9.8-13 NRBC/100 WBC (test code = 8056059989) See_Comment [Automated [employer]] The system which generated this result transmitted reference range: 0.0 - 10.0 /100 WBCs. The reference range was not used to interpret this result as normal/abnormal. NRBC x10^3 (test code = 8822495564) <0.01 See_Comment [Automated [employer]] The system which generated this result transmitted reference range: 10*3/?L. The reference range was not used to interpret this result as normal/abnormal. GRAN MAT (NEUT) % (test code = 770-8) 72.4 % IMM GRAN % (test code = 0475392033) 0.30 % LYMPH % (test code = 736-9) 19.1 % MONO % (test code = 5905-5) 7.4 % EOS % (test code = 713-8) 0.4 % BASO % (test code = 706-2) 0.4 % GRAN MAT x10^3(ANC) (test code = 9715686736) 8.37 10*3/uL 1.99-6.95 H IMM GRAN x10^3 (test code = 1183496405) 0.04 10*3/uL 0-0.06 LYMPH x10^3 (test code = 731-0) 2.21 10*3/uL 1.09-3.23 MONO x10^3 (test code = 742-7) 0.86 10*3/uL 0.36-1.02 EOS x10^3 (test code = 711-2) 0.05 10*3/uL 0.06-0.53 L BASO x10^3 (test code = 704-7) 0.05 10*3/uL 0.01-0.09 Lab Interpretation (test code = 29061-9) Abnormal [facility]2019-07-30 00:29:00* Test Item Value Reference Range Interpretation Comme nts APPEARANCE (test code = 6902770012) Clear Clear COLOR (test code = 0535371804) Yellow Yellow PH (test code = 6749946791) 4.8-8.0 SP GRAVITY (test code = 3915059379) <=1.005 1.003-1.030 GLU U QUAL (test code = 8646160899) Negative Negative BLOOD (test code = 9898282062) Negative Negative KETONES (test code = 6469215666) Negative Negative PROTEIN (test code = 2887-8) Negative Negative UROBILIN (test code = 9400743552) 0.2 mg/dL See_Comment [Automated [employer]] The system which generated this result transmitted reference range: 0-1.0 mg/dL. The reference range was not used to interpret this result as normal/abnormal. BILIRUBIN (test code = 5641206666) Negative Negative NITRITE (test code = 6195620442) Negative Negative LEUK KENDELL (test code = 3033812075) Trace Negative A RBC/HPF (test code = 7654281070) See_Comment [Automated [employer]] The system which generated this result transmitted reference range: 0 - 3 HPF. The reference range was not used to interpret this result as normal/abnormal. WBC/HPF (test code = 4750234392) See_Comment [Automated messa ge] The system which generated this result transmitted reference range: 0 - 5 HPF. The reference range was not used to interpret this result as normal/abnormal. BACTERIA (test code = 8488331463) Few Negative A MUCOUS (test code = 9929102797) Slight Negative LPF A SQ EPITH (test code = 8180803365) HPF Lab Interpretation (test code = 47167-1) Abnormal [facility] Notes Date/Time Note Provider Source 2024-06-14 01:29:17 [...] steady gait, in no apparent distress ANA Garcia RN [facility] 2024-06-13 23:07:39 Pt still unable to provide urine sample. Another cup of water provided to pt. [facility] 2024-06-13 22:09:46 Pt arrives ambulatory to ED c/o burning w/ urination also reports coughing and feeling like he may have a fever. ANA Stewart RN [facility] 2024-06-02 09:54:24 Patient given discharge instructions with readback, discussed prescriptions and follow up care. IV removed and intact. Steady gait with NAD noted. ICAL NURSE LEADER Dayo Schmitt RN [facility] 2024-06-02 06:47:00 Tingling/pain to mello lower extremities to years. Pain worsened today. ANA Moore RN [facility] 2024-06-02 06:46:00 [facility] Emergency Department Note Patient Name: Jerry Momin Date of : 1960 63 year old male Treatment Room: [place] [address] Primary Care Physician: Barb Cooper Patient Escorted by: Self [9] Mode of Arrival: EMS - [facility] [43] EMS Treatment Prior to ED Arrival: [facility] PORTER treatment: Saline lock Travel and Exposure Screening: [...] prior to arrival. When chart reviewed in [facility] he has actually been seen here [...] 0.01 - 0.09 10*3/uL COMP. METABOLIC PANEL (45132) NA 138 135 - 145 mmol/L K [...] CONTRAST CBC WITH DIFF COMP. METABOLIC PANEL (95996) HIV 1/2 Ag-Ab with Reflex Cd4 Subset [...] prior to arrival. When chart reviewed in [facility] he has actually been seen here [...] signed by: Karen Stewart DO 06/02/24 0942 ICAL NURSE LEADER [facility] 2024-04-07 23:17:13 Pt given printed and [...] in no apparent distress, Rosa Jerome RN [facility] 2024-04-07 19:26:50 Pt c/o sore throat since Saturday and cough Verena Gallegos RN [facility] 2024-04-07 19:10:00 [facility] Emergency Department Note Patient Name: Jerry Momin [...] Event User Comments 04/07/241926 Medical Screening Begins ERYN WATTJose Carlos -- 04/07/241926 First Provider Evaluation SUMIT, ERYN Gilmore -- ED COURSE Diagnosis/Impression as of 04/07/242305 [...] Eryn Watt MD 04/07/242305 EM-EMERGENCY MEDICINE STAFF [facility] 2024-03-23 15:54:29 Patient dc home. Follow up with pcp. Verbalized understanding. Signed paper work. [facility] 2024-03-23 11:39:36 Patient reports he has a cough and is congested and wants to get tested for covid. Alexx Maya RN [facility] 2023-12-05 00:00:31 Pt discharged with diagnosis of cramps, elevated CK, and non traumatic rhabdomyolysis. Printed and verbal instructions reviewed with and given to pt. Prescriptions given x 1. Pt verbalized understanding of teaching, medication, and recommended follow-up. Denies questions or concerns at this time. Pt ambulatory at discharge. Appears in no apparent distress. No ataxia noted. Sindi Villalpando RN [facility] 2023-12-04 19:55:21 Patient given urine cup and sent back to [facility]. [facility] 2023-12-04 19:00:23 Patient ambulatory to ED c/o muscle cramps in feet, hands, legs that "has been going on." It doesn't start until I go lay down for bedtime." Patient states "it has been a while since I have seen my doctor for this." Rosa Jerome RN [facility] 2023-09-14 19:41:03 Pt given printed and [...] with steady gait, in no apparent distress, ICAL NURSE LEADER Verena Gallegos RN [facility] 2023-09-14 16:05:00 Patient states: "I've been having abdominal upset since 1 week now. I feel like I'm bloated. I feel like going to the bathroom every 5 minutes to poop but it's not diarrhea. History of IBD runs in our family." ANA Correia RN [facility] 2023-08-22 00:30:59 Pt given printed and [...] in no apparent distress ANA Guo RN [facility] 2023-08-21 22:03:31 Pt arrives ambulatory to ED c/o a cough x3 days. Denies fever or sore throat. Also reports having a stuffy head. ANA Stewart RN [facility] 2023-08-21 21:38:00 [facility] Emergency Department Note Patient Name: Jerry Momin Date of : 1960 63 year old male Treatment Room: [place] [address] Primary Care Physician: Marilyn Hughes Patient Escorted [...] Endocrine negative Physical Exam: ED Triage Vitals [08/21/237] Weight 81.6 kg (180 lb) Actual or [...] No active pulmonary disease. RL: 5611 AFC: 47421 END OF REPORT Lab Results: Lab Results [...] RELIEF) 50 MCG/ACTUATION NASAL SPRAY Use 1 [place] in each nostril daily. FLUTICASONE PROPIONATE 50 [...] times daily as needed for Cough. SOD SYVUQ-KLBAVM-PWJPIC BOTTLE (NEILMED SINUS RINSE COMPLETE) PKDV Use [...] Electronically signed by: Saul Chambers MD 08/21/23 8411 [facility]
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
[2024-06-17 19:29] VITALS: TEMP 98.3; O2SAT 100
[2024-06-17 19:30] VITALS: BP 141/81
== END 2024-06-17 17:17 ==
LOC: ER 15:15
DX: R41.82 Altered mental status, unspecified (principal); F02.818 Dementia in other diseases classified elsewhere, unspecified severity, with other behavioral disturbance; Z72.0 Tobacco use
CPT/HCPCS: 99285